=== PATIENT | female | born 1950 | race Caucasian/White ===

== ENCOUNTER 2016-05-09 13:38 | Emergency (ER) | payer MEDICARE, OTHER ==
[2016-05-09 13:57] VITALS: BP 134/73
[2016-05-09] MEDS ORDERED: NS 0.9% 1000 ML* 1,000 ML IV ONE (15:55)
[2016-05-09] MEDS ORDERED: ceFAZolin 1 GM in Dextrose (*) 1 GM/50 ML BAG IVPB ONE (15:56)
[2016-05-09] MEDS ORDERED: fentaNYL* 50 MCG/ML 2 ML VIAL (100 MCG VIAL) IV SLOW PU ONE (15:57)
[2016-05-09 18:16] LABS: Hematocrit 28 % (35-47); Hemoglobin 9.1 g/dl (12.0-16.0); Mean Corpuscular HGB Conc 32 g/dl (31-36); Mean Corpuscular Hemoglobin 25 pg (27-31); Mean Corpuscular Volume 77 fL (80-97); Mean Platelet Volume 8 um3 (7.4-10.4); Red Blood Count 3.67 10^6/ul (4.0-5.4); Red Cell Distribution Width 16 % (10.5-15); White Blood Count 5.9 10^3/ul (3.5-10.8)
[2016-05-09 18:31] LABS: Albumin 2.7 g/dL (3.2-5.2); BUN/Creatinine Ratio 26.5 (8-20); Calcium 8.4 mg/dL (8.6-10.3); EGFR Non-African American 126.7 (>60); Globulin 2.5 g/dL (2-4); Potassium 3.9 mmol/L (3.5-5.0); Total Bilirubin 0.5 mg/dL (0.2-1.0); Total Protein 5.2 g/dL (6.4-8.9)
[2016-05-09] MEDS ORDERED: Ondansetron INJ* 2 MG/ML VIAL ONE (20:14)
--- NOTE | 2016-05-09 22:28 | ED ---
Tenisha Walsh Rebecca, scribed for Jose Lassiter MD on 05/09/16 at 1529 . Throat Pain/Nasal Congestion - HPI Summary HPI Summary: Pt is a 65 y/o F BIBA who presents to ED c/o tongue swelling and pain. 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 Pain is currently severe, ranked 9/10 and characterized as burning. Pain is not particularly worse today than it has been. Sx aggravated by swallowing and drinking, alleviated slightly by Hydrocodone prescription. Reports that she cannot drink water and has a feeding tube in place. Additionally c/o pruritis and erythema of the neck. Denies fever and urinary frequency decrease. Reports discussing with her rad/Oncologist, Dr. Berry, who, per pt, stated that sx should resolve spontaneously. she states the redness is not much worse than it has been. 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) - Allergies/Home Medications Allergies/Adverse Reactions: Allergies Allergy/AdvReac Type Severity Reaction Status Date / Time Penicillins Allergy Intermediate Rash Verified 03/25/16 12:03 Lisinopril Allergy Rash Verified 03/25/16 12:03 PMH/Surg Hx/FS Hx/Imm Hx Endocrine/Hematology History: Denies: Hx Diabetes, Hx Systemic Lupus Erythematosus Cardiovascular History: Reports: Hx Hypertension - ON DAILY MEDS Denies: Hx Congestive Heart Failure, Hx Pacemaker/ICD Respiratory History: Reports: Other Respiratory Problems/Disorders - excess phlegm GI History: Reports: Other GI Disorders - feeding tube placed History: Denies: Hx Dialysis, Hx Renal Disease Musculoskeletal History: Reports: Hx Arthritis Denies: Hx Rheumatoid Arthritis Sensory History: Reports: Hx Cataracts, Hx Contacts or Glasses - GLASSES Denies: Hx Hearing Aid Opthamlomology History: Reports: Hx Cataracts, Hx Contacts or Glasses - GLASSES Psychiatric History: Denies: Hx Panic Disorder - Cancer History Cancer Type, Location and Year: mouth cancer Hx Chemotherapy: Yes - 02/16/16 Hx Radiation Therapy: Yes - 02/18/16 Hx Palliative Cancer Treatment: No - Surgical History Surgery Procedure, Year, and Place: 12/2015 CANCER OF FLOOR OF MOUTH [place] Hx Anesthesia Reactions: No Infectious Disease History: No Infectious Disease History: Denies: Traveled Outside the [place] in Last 30 Days - Family History Known Family History: Positive: Other - No FMHx of malignant hyperthermia. No FMHx of anesthesia reaction. - Social History Alcohol Use: None Substance Use Type: Reports: None Smoking Status (MU): Former Smoker Type: Cigars Amount Used/How Often: OCCASSIONAL CIGAR PAST 5 YRS Have You Smoked in the Last Year: Yes Review of Systems Negative: Fever Positive: Other - Tongue swelling and pain Negative: frequency Positive: Rash - Neck erythema and pruritis All Other Systems Reviewed And Are Negative: Yes Physical Exam - Summary Physical Exam Summary: General: Pleasant, alert. Obvious discomfort with swelling. HEENT: Facial and tongue swelling and erythema. The face and skin that is indurated is diffusely tender. Neck: soft, supple, no adenopathy, no edema Heart: S1, S2, RRR, no murmurs, rubs, or gallops. HR is 95 bpm. Lungs: Clear to auscultation, breathing comfortable, no wheezes or rales Abdominal: Soft, flat, nontender with an abdomen feeding tube. Extremities: Bilateral swelling of the legs with mild tenderness. Neuro: Alert and oriented x 3 Psych: Logical, coherent Triage Information Reviewed: Yes Vital Signs On Initial Exam: Initial Vitals Temp Pulse Resp BP Pulse Ox 98.5 F 94 17 134/73 98 05/09/16 13:50 05/09/16 13:50 05/09/16 13:50 05/09/16 13:50 05/09/16 13:50 Vital Signs Reviewed: Yes Diagnostics - Vital Signs Vital Signs Temp Pulse Resp BP Pulse Ox 05/09/16 13:57 98.5 F 94 19 134/73 97 05/09/16 13:50 98.5 F 94 17 134/73 98 - Laboratory Lab Results: Lab Results 05/09/16 05/09/16 05/09/16 Range/Units 18:08 18:08 18:08 WBC 5.9 (3.5-10.8) 10^3/ul RBC 3.67 L (4.0-5.4) 10^6/ul Hgb 9.1 L (12.0-16.0) g/dl Hct 28 L (35-47) % MCV 77 L (80-97) fL MCH 25 L (27-31) pg MCHC 32 (31-36) g/dl RDW 16 H (10.5-15) % Plt Count 200 (150-450) 10^3/ul MPV 8 (7.4-10.4) um3 Neut % (Auto) 78.4 (38-83) % Lymph % (Auto) 3.6 L (25-47) % [place] % (Auto) 11.9 H (1-9) % Eos % (Auto) 5.7 (0-6) % Baso % (Auto) 0.4 (0-2) % Absolute Neuts (auto) 4.7 (1.5-7.7) 10^3/ul Absolute Lymphs (auto) 0.2 L (1.0-4.8) 10^3/ul Absolute Monos (auto) 0.7 (0-0.8) 10^3/ul Absolute Eos (auto) 0.3 (0-0.6) 10^3/ul Absolute Basos (auto) 0 (0-0.2) 10^3/ul Absolute Nucleated RBC 0 10^3/ul Nucleated RBC % 0.1 INR (Anticoag Therapy) 0.96 (0.89-1.11) APTT 29.1 (26.0-36.3) seconds Sodium 131 L (133-145) mmol/L Potassium 3.9 (3.5-5.0) mmol/L Chloride 97 L (101-111) mmol/L Carbon Dioxide 29 (22-32) mmol/L Anion Gap 5 (2-11) mmol/L BUN 13 (6-24) mg/dL Creatinine 0.49 L (0.51-0.95) mg/dL Est GFR ( Amer) 163.0 (>60) Est GFR (Non-Af Amer) 126.7 (>60) BUN/Creatinine Ratio 26.5 H (8-20) Glucose 101 H (70-100) mg/dL Lactic Acid (0.5-2.0) mmol/L Calcium 8.4 L (8.6-10.3) mg/dL Total Bilirubin 0.50 (0.2-1.0) mg/dL AST 14 (13-39) U/L ALT 10 (7-52) U/L Alkaline Phosphatase 154 H (34-104) U/L Total Protein 5.2 L (6.4-8.9) g/dL Albumin 2.7 L (3.2-5.2) g/dL Globulin 2.5 (2-4) g/dL Albumin/Globulin Ratio 1.1 (1-3) 05/09/16 Range/Units 18:08 WBC (3.5-10.8) 10^3/ul RBC (4.0-5.4) 10^6/ul Hgb (12.0-16.0) g/dl Hct (35-47) % MCV (80-97) fL MCH (27-31) pg MCHC (31-36) g/dl RDW (10.5-15) % Plt Count (150-450) 10^3/ul MPV (7.4-10.4) um3 Neut % (Auto) (38-83) % Lymph % (Auto) (25-47) % [place] % (Auto) (1-9) % Eos % (Auto) (0-6) % Baso % (Auto) (0-2) % Absolute Neuts (auto) (1.5-7.7) 10^3/ul Absolute Lymphs (auto) (1.0-4.8) 10^3/ul Absolute Monos (auto) (0-0.8) 10^3/ul Absolute Eos (auto) (0-0.6) 10^3/ul Absolute Basos (auto) (0-0.2) 10^3/ul Absolute Nucleated RBC 10^3/ul Nucleated RBC % INR (Anticoag Therapy) (0.89-1.11) APTT (26.0-36.3) seconds Sodium (133-145) mmol/L Potassium (3.5-5.0) mmol/L Chloride (101-111) mmol/L Carbon Dioxide (22-32) mmol/L Anion Gap (2-11) mmol/L BUN (6-24) mg/dL Creatinine (0.51-0.95) mg/dL Est GFR ( Amer) (>60) Est GFR (Non-Af Amer) (>60) BUN/Creatinine Ratio (8-20) Glucose (70-100) mg/dL Lactic Acid 0.4 L (0.5-2.0) mmol/L Calcium (8.6-10.3) mg/dL Total Bilirubin (0.2-1.0) mg/dL AST (13-39) U/L ALT (7-52) U/L Alkaline Phosphatase (34-104) U/L Total Protein (6.4-8.9) g/dL Albumin (3.2-5.2) g/dL Globulin (2-4) g/dL Albumin/Globulin Ratio (1-3) Result Diagrams: 05/09/16 18:08 05/09/16 18:08 Lab Statement: Any lab studies that have been ordered have been reviewed, and results considered in the medical decision making process. Re-Evaluation - Re-Evaluation First Eval Re-Evaluation Time: 17:13 Change: Unchanged Comment: Discussed conversation with Dr. Berry and the possibility of infection. Discussed plan of admission with pt who agrees. Second Eval Re-Evaluation Time: 20:01 Change: Improved Comment: Discussed current findings and plan with patient. Counseled pt on fentanyl patch. Third Eval Re-Evaluation Time: 20:10 Change: Improved Comment: Reports that in the past, the use of a fentanyl patch caused nausea. Additionally notes that she is running out of pain meds at home. EENT Course/Dx - Course Assessment/Plan: Unfortunately, she has had continued oral pain and burning for several weeks now. Pt resolve states that redness and skin changes aren't necessarily new but that she is more concerned about the burning. At first she had tachycardia, which has resolved. She is afebrile, no elevated white count. I reviewed the case w/ Dr. Berry, there is potential that the redness has spread and we have concern about the possibility of cellulitis. I believe without any systemic symptoms or signs of infeciton, it is reaonsable to try oral Abx and have the pt follow up with Dr. Berry immediately for re- assessment. Upon further discussion, pt reveals that duragesic patch caused nausea. Pain will be treated with oral pain medications. This was described in detail. - Differential Diagnoses Differential Diagnoses: Cellulitis - Diagnoses Provider Diagnoses: Radiation burn, Cellulitis - Provider Notifications Discussed Care of Patient with: Dr. Berry with oncology, who states that the last time she was seen by him the whole area had been improving, less red and less swollen. Also states that the last radiation treatment was a while back. Dr. Maldonado, hospitalist, at 1939. She points out that the lack of a white count or tachycardia any longer suggetss that this may not be a severe infection. She recommends that we try oral Abx at first. Dr. Berry at 194 who I called again to inform and update on the case. Agrees to see the pt tomorrow morning. Discharge - Discharge Plan Condition: Fair Disposition: HOME Prescriptions: DOXYcycline CAP(*) [DOXYcycline 100MG CAP(*)] 100 mg PO BID #20 cap oxyCODONE TAB* [Roxycodone TAB 5 mg*] 5 mg PO Q4H PRN #20 tab MDD 6 PRN Reason: Pain Patient Education Materials: Cellulitis (ED) Referrals: Sarthak Ceron MD [Primary Care Provider] - Additional Instructions: Follow up Dr. Berry tomorrow in the morning as we discussed. The documentation as recorded by the Tenisha bermudez Rebecca accurately reflects the service I personally performed and the decisions made by me, Jose Lassiter MD.
--- NOTE | 2016-05-15 09:00 | ED ---
Progress - Progress Note Progress Note: Sens reviewed - organism is sens to doxycycline which pt has been taking. No changes in meds. Pt to f/u as directed. She is aware to return to ED if sx worsen. Re-Evaluation - Re-Evaluation First Eval Re-Evaluation Time: 17:13 Change: Unchanged Comment: Discussed conversation with Dr. Berry and the possibility of infection. Discussed plan of admission with pt who agrees. Second Eval Re-Evaluation Time: 20:01 Change: Improved Comment: Discussed current findings and plan with patient. Counseled pt on fentanyl patch. Third Eval Re-Evaluation Time: 20:10 Change: Improved Comment: Reports that in the past, the use of a fentanyl patch caused nausea. Additionally notes that she is running out of pain meds at home. Course/Dx - Diagnoses Provider Diagnoses: Radiation burn, Cellulitis - Provider Notifications Discussed Care Of Patient With: Dr. Berry with oncology, who states that the last time she was seen by him the whole area had been improving, less red and less swollen. Also states that the last radiation treatment was a while back. Dr. Maldonado, hospitalist, at 1939. She points out that the lack of a white count or tachycardia any longer suggetss that this may not be a severe infection. She recommends that we try oral Abx at first. Dr. Berry at 1946 who I called again to inform and update on the case. Agrees to see the pt tomorrow morning.
== END 2016-05-09 20:24 | disposition home or self-care (01) ==
LOC: ED 13:38
DX: T28.0 Burn of mouth and pharynx (principal); L03.90 Cellulitis, unspecified; R21 Rash and other nonspecific skin eruption; R60.9 Edema, unspecified; L29.9 Pruritus, unspecified; T79.9XXS Unspecified early complication of trauma, sequela; Z87.891 Personal history of nicotine dependence
CPT/HCPCS: 36415; 80053; 83605; 85025; 85610; 85730; 87040; 87077; 87150; 87186; 87205; 96374; 99283; J0690; J2405; J3010

== ENCOUNTER 2016-06-06 15:41 | Inpatient (IN) | payer MEDICARE, OTHER ==
[2016-06-06] MEDS ORDERED: NS 0.9% 1000 ML* 1,000 ML IV ONE (16:22)
--- NOTE | 2016-06-06 17:17 | RAD ---
INDICATION: History of head/neck carcinoma. Short of breath. COMPARISON: Chest x-ray May 26, 2015 TECHNIQUE: PA and lateral dual-energy views were obtained. FINDINGS: Bones/Soft Tissues: There are no acute bony findings. There is a left-sided Kemygt-t-Nbks catheter Cardiomediastinal: The heart is normal in size. There is an enlarging right hilar mass. There are other, bilateral, pulmonary parenchymal nodules. Lungs: There may be a coexistent right perihilar infiltrate. Pleura: There are no pleural effusions. Other: None IMPRESSION: RIGHT HILAR MASS WITH POSSIBLE POSTOBSTRUCTIVE PNEUMONITIS. ADDITIONAL PULMONARY PARENCHYMAL NODULES NOTED BILATERALLY
--- NOTE | 2016-06-06 17:22 | RAD ---
INDICATION: Abdominal pain COMPARISON: Abdomen January 28, 2016 TECHNIQUE: Erect and supine views of the abdomen are submitted. FINDINGS: Bones: There are no acute bony findings. Soft tissues: The soft tissues appear normal. The psoas margins are sharp. Bowel gas pattern: Normal Calcifications: There are no abnormal calcifications. Other: There is a PEG tube IMPRESSION: NO ACUTE DIAGNOSTIC FINDINGS.
[2016-06-06 17:40] LABS: Hematocrit 28 % (35-47); Mean Corpuscular HGB Conc 32 g/dl (31-36); Mean Corpuscular Hemoglobin 24 pg (27-31); Mean Corpuscular Volume 74 fL (80-97); Mean Platelet Volume 7 um3 (7.4-10.4); Red Blood Count 3.85 10^6/ul (4.0-5.4); Red Cell Distribution Width 16 % (10.5-15); White Blood Count 11.1 10^3/ul (3.5-10.8)
[2016-06-06 17:45] LABS: Add Diff/Slide Review? Slide Review Added; Comments Flag Yes
[2016-06-06 17:55] LABS: ALT 21 U/L (7-52); AST 23 U/L (13-39); Albumin 2.7 g/dL (3.2-5.2); Alkaline Phosphatase 278 U/L (34-104); Anion Gap 4 mmol/L (2-11); BUN/Creatinine Ratio 47.6 (8-20); Blood Urea Nitrogen 20 mg/dL (6-24); C Reactive Protein 123.49 mg/L (< 5.00); CO2 Carbon Dioxide 30 mmol/L (22-32); Calcium 8.7 mg/dL (8.6-10.3); Chloride 95 mmol/L (101-111); Creatine Kinase 11 U/L (10-223); EGFR African American 194.7 (>60); EGFR Non-African American 151.4 (>60); Globulin 2.8 g/dL (2-4); Glucose 104 mg/dL (70-100); Potassium 3.4 mmol/L (3.5-5.0); Sodium 129 mmol/L (133-145); Total Protein 5.5 g/dL (6.4-8.9)
[2016-06-06 17:56] LABS: Troponin I 0.01 ng/mL (<0.04)
[2016-06-06 17:59] LABS: Hypochromasia 2+; Macrocytosis 1+; Microcytosis 1+; Polychromasia 1+
[2016-06-06] MEDS ORDERED: Levofloxacin 750 MG IVPREMIX(* 750 MG/150 ML BAG IVPB ONE (18:56)
[2016-06-06] MEDS ORDERED: HYDROcodone/ACET. 7.5/325 LIQ* 15 ML UDC PO ONE (19:27)
[2016-06-06] MEDS ORDERED: Al Hydrox/Mg Hydrox/Simet LIQ* 30 ML UDC PO PRN (19:50)
[2016-06-06] MEDS ORDERED: Clindamycin 600 MG IVPREMIX(* 600 MG/50 ML SDV IV ONE (19:53)
[2016-06-06] MEDS ORDERED: Polyethylene Glycol 3350* 17 GM PACKET PO PRN (20:01)
[2016-06-06] MEDS ORDERED: Iohexol 300* (CONTRAST) 10 ML SDV IV ONE (20:10)
[2016-06-06 20:14] LABS: Total Iron Binding Capacity 157 mcg/dL (250-450); Transferrin 112 mg/dL (203-362)
[2016-06-06 20:17] LABS: Iron < 15 ug/dL (50-212)
[2016-06-06 20:34] LABS: Ferritin 326.8 ng/mL (11-307)
[2016-06-06] MEDS: Morphine INJ* 2 MG/ML 1 ML CARPUJECT IV PRN (20:39)
[2016-06-06] MEDS: Ondansetron INJ* 2 MG/ML VIAL IV PRN (20:39)
[2016-06-06] MEDS: Acetaminophen ADULT LIQ* 650 MG/20.3 ML UDC PO PRN (20:41)
[2016-06-06] MEDS ORDERED: Potassium Chloride LIQUID* 20 MEQ PACKET PO ONE (20:49)
--- NOTE | 2016-06-06 20:50 | ED ---
zoraida Walsh Timothy, scribed for Yoandy Doan MD on 06/06/16 at 1627 . HPI Febrile Illness - HPI Summary HPI Summary: Deb Lozano is a 65 yo female presenting to [facility] with fever, cough, sore throat, and dyspnea for the past 3 days. She also c/o nausea and vomiting. She has a peg tube which feels sore, and had some blood come out of it yesterday. A dry cough was noted at triage. She states coughing makes the tube site hurt. She also states she has not been drinking or eating effectively that much. She states she is dizzy when she gets up to walk around. She has mouth CA, but is no longer receiving Tx. Triage note states she seems to be struggling with her new Dx of mouth CA. When questioned about SI indicated at triage, Pt stated she was not actually with SI, but was just feeling terrible. She has self-medicated with norco at 1130 today. Her Mhx includes HTN, feeding tube, arthritis, mouth CA - History of Current Complaint Chief Complaint: EDShortnessOfBreath Hx Obtained From: Patient Onset/Duration: Started Days Ago, Still Present Timing: Constant Initial Severity: Moderate Current Severity: Moderate Aggravating Factors: Nothing Alleviating Factors: Nothing Associated Signs and Symptoms: Cough, Dizziness, SOB, Sore Throat, Vomiting - Additional Pertinent History Primary Care Physician: REGINALD - Allergy/Home Medications Allergies/Adverse Reactions: Allergies Allergy/AdvReac Type Severity Reaction Status Date / Time Penicillins Allergy Intermediate Rash Verified 03/25/16 12:03 Lisinopril Allergy Rash Verified 03/25/16 12:03 PMH/Surg Hx/FS Hx/Imm Hx Endocrine/Hematology History: Denies: Hx Diabetes, Hx Systemic Lupus Erythematosus Cardiovascular History: Reports: Hx Hypertension - ON DAILY MEDS Denies: Hx Congestive Heart Failure, Hx Pacemaker/ICD Respiratory History: Reports: Other Respiratory Problems/Disorders - excess phlegm GI History: Reports: Other GI Disorders - feeding tube placed History: Denies: Hx Dialysis, Hx Renal Disease Musculoskeletal History: Reports: Hx Arthritis Denies: Hx Rheumatoid Arthritis Sensory History: Reports: Hx Cataracts, Hx Contacts or Glasses - GLASSES Denies: Hx Hearing Aid Opthamlomology History: Reports: Hx Cataracts, Hx Contacts or Glasses - GLASSES Psychiatric History: Denies: Hx Panic Disorder - Cancer History Cancer Type, Location and Year: mouth cancer Hx Chemotherapy: Yes - 02/16/16 Hx Radiation Therapy: Yes - 02/18/16 Hx Palliative Cancer Treatment: No - Surgical History Surgery Procedure, Year, and Place: 12/2015 CANCER OF FLOOR OF MOUTH [place] Hx Anesthesia Reactions: No Infectious Disease History: No Infectious Disease History: Denies: Traveled Outside the [place] in Last 30 Days - Family History Known Family History: Negative: Other - malignant hyperthermia, anesthesia reaction - Social History Alcohol Use: None Substance Use Type: Reports: None Smoking Status (MU): Former Smoker Type: Cigars Amount Used/How Often: OCCASSIONAL CIGAR PAST 5 YRS Have You Smoked in the Last Year: Yes Review of Systems Positive: Fever Eyes: Negative Positive: Sore Throat Cardiovascular: Negative Positive: Shortness Of Breath, Cough Positive: Abdominal Pain - at peg tube site, Vomiting, Nausea Genitourinary: Negative Musculoskeletal: Negative Skin: Negative Neurological: Other - dizziness Psychological: Normal All Other Systems Reviewed And Are Negative: Yes Physical Exam - Summary Physical Exam Summary: VITAL SIGNS: Reviewed. GENERAL: Patient is a well developed and nourished female who is lying comfortable in the stretcher. Patient is not in any acute respiratory distress. HEAD AND FACE: No signs of trauma. No ecchymosis, hematomas or skull depressions. EYES: PERRLA, EOMI x 2, No injected conjunctiva, no nystagmus. EARS: Hearing grossly intact. Ear canals and tympanic membranes are within normal limits. MOUTH: Oropharynx within normal limits. NECK: Supple, trachea is midline, no adenopathy, no JVD, no carotid bruit, no c- spine tenderness, neck with full ROM. CHEST: Symmetric, no tenderness at palpation LUNGS: Coarce breath sounds bilateral. . CVS: Regular rate and rhythm, S1 and S2 present, no murmurs or gallops appreciated. ABDOMEN: Soft, non-tender. No signs of distention. No rebound no guarding, and no masses palpated. Bowel sounds are normal. Peg tub in place EXTREMITIES: FROM in all major joints, no edema, no cyanosis or clubbing. NEURO: Alert and oriented x 3. No acute neurological deficits. Speech is normal and follows commands. SKIN: Dry and warm Triage Information Reviewed: Yes Vital Signs On Initial Exam: Initial Vitals Temp Pulse Resp BP Pulse Ox 99.9 F 94 20 107/56 97 06/06/16 16:09 06/06/16 16:09 06/06/16 16:09 06/06/16 16:09 06/06/16 16:09 Vital Signs Reviewed: Yes Diagnostics - Vital Signs Vital Signs Temp Pulse Resp BP Pulse Ox 06/06/16 16:09 99.9 F 94 20 107/56 97 - Laboratory Result Diagrams: 06/06/16 17:25 06/06/16 17:25 Lab Statement: Any lab studies that have been ordered have been reviewed, and results considered in the medical decision making process. - Radiology CXR Xray Interpretation: Positive (See Comments) - IMPRESSION: RIGHT HILAR MASS WITH POSSIBLE POSTOBSTRUCTIVE PNEUMONITIS. ADDITIONAL PULMONARY PARENCHYMAL NODULES NOTED BILATERALLY Radiology Interpretation Completed By: Radiologist abd XR Xray Interpretation: No Acute Changes - IMPRESSION: NO ACUTE DIAGNOSTIC FINDINGS. Radiology Interpretation Completed By: Radiologist - EKG 1730 Cardiac Rate: NL - 94 BPM EKG Interpretation: NSR @ 94 BPM, no ST elevation, no [place] Course/Dx - Course Assessment/Plan: Deb Lozano is a 65 yo female presenting to [facility] with mouth cancer and a feeding tube, c/o nausea, vomiting, cough, dyspnea, and sore throat. Blood work shows WBC 11.1 and macrocytic hypochromic anemia, probably a chronic disease, hyponatremia 129, hypokalemia 3.4. Rapid influenza a and b tests are negative. His CXR showed right hilar mass with possible post- obstructive pneumonitis. In the ED course he was given IV fluids and leviquin, since Pt may have aspiration pneumonoia. I discussed my findings and results with Dr. Silva who accepted Pt for admission. Patient is hemodynamically stable alert and oriented x 3. - Febrile Illness Differential Diagnoses: GI Disease, Pneumonia - Diagnoses Provider Diagnoses: Aspiration pneumonia, Hypokalemia, Anemia, Lung mass - Provider Notifications Discussed Care Of Patient With: 1910 - Dr. Silva (hospitalist) - Discussed Pt condiiton, agrees to admit Pt Instructed by Provider To: Admit As Inpatient Discharge - Discharge Plan Condition: Stable Disposition: ADMITTED TO [facility] The documentation as recorded by the zoraida bermudez Timothy accurately reflects the service I personally performed and the decisions made by , Yoandy Doan MD.
--- NOTE | 2016-06-06 21:06 | RAD ---
INDICATION: Abnormal chest x-ray with lung/mediastinal masses COMPARISON: Chest x-ray same date; PET scan November 17, 2015 TECHNIQUE: Axial source images were obtained from the thoracic inlet to the hemidiaphragms. Coronal and sagittal reconstructed images were acquired. The visualized neck to include the thyroid appear normal. Chest wall: There are no acute abnormalities of the bony thorax or chest wall. There is a left-sided Niqytv-r-Vzna catheter terminating in the superior vena cava. There is extensive, confluent, distal adenopathy. Measured individually lymph node masses measure up to 3.8 x 2.4 cm in the pretracheal space. There is a necrotic 3.1 x 2.7 cm subcarinal lymph node and a 2.6 x 3.4 center right hilar mass. There are multiple additional smaller metastatic lymph nodes. LUNGS: There is necrotic appearing mass with presumed postobstructive pneumonitis in the right middle lobe. There is also likely postobstructive lingular pneumonitis. There are numerous, bilateral, pulmonary parenchymal masses. The larger masses show cavitation. The largest masses measure up to 1.8 cm in transverse dimensions. There are numerous smaller lung masses some of which are not cavitary. There are no endobronchial lesions Lungs : There are no pulmonary parenchymal masses or infiltrates. The pulmonary interstitium appears normal. There are no endobronchial lesions. Cardiomediastinal structures: The heart is normal in size. There is no pericardial effusion. There is no evidence of aortic aneurysm or dissection. The pulmonary vessels appear normal. There is no mediastinal or hilar adenopathy. The esophagus appears normal. Pleura : There are no pleural-based masses or effusions. Other: The spleen is mildly generous in size. There is hepatic steatosis.. There is a peg tube IMPRESSION: EXTENSIVE NECROTIC APPEARING MEDIASTINAL ADENOPATHY WITH POSTOBSTRUCTIVE PNEUMONITIS IN THE RIGHT MIDDLE LOBE AND LINGULA. NUMEROUS SOLID AND CAVITARY UPPER AND LOWER LOBE PULMONARY PARENCHYMAL LESIONS ARE NOTED BILATERALLY. THIS LIKELY REPRESENTS A CAVITATING MALIGNANCY IN THIS PATIENT WITH A HEAD/NECK CARCINOMA ALTHOUGH THE DIFFERENTIAL WOULD ALSO INCLUDE INFECTIOUS DISEASE PROCESSES TO INCLUDE SEPTIC PULMONARY EMBOLI.
[2016-06-06] MEDS: NS 0.9% 1000 ML* 1,000 ML IV SCH (23:18)
[2016-06-06] MEDS: Heparin VIAL(*) 5000 UNITS/ML VIAL (FIVE THOUSAND) SUBCUT SCH (23:19)
--- NOTE | 2016-06-07 00:26 | HP ---
HISTORY AND PHYSICAL: DATE OF ADMISSION: 06/06/16 TIME OF EVALUATION: 1999. ONCOLOGIST: Huma Gomez MD CHIEF COMPLAINT: Shortness of breath, nausea, and vomiting. HISTORY OF PRESENT ILLNESS: This is a 65-year-old female with a past medical history of squamous cell carcinoma of the tongue, status post tumor resection and chemoradiation diagnosed on December 26 with also a PEG tube placed on January 25, who states that she only had oral intake about 3 days ago, she felt constipated and she choked on a laxative. For the past 3 days, she has had worsening shortness of breath, nausea, and vomiting. She states she has had a persistent dry cough for the past month. She has felt very dizzy and shaking and unsteady on her feet. She has had a fever at home for the past few days as high as 101.8. She denies any abdominal pain. As mentioned, she has constipation. She states she has had some pain around her feeding tube site and some blood oozing around it. She also has some red irritation at the tape sites. Regarding her history of cancer, she states she has completed her treatment. She is unclear on her prognosis. She states that when she feels really bad, she feels like she wants to , but she would never do anything or act upon this. She denies any chest pain. No swelling in her legs. Otherwise , the remaining review of systems is negative. In the emergency room, the patient had labs and imaging. She was given a liter of normal saline, and was referred to the hospitalist service for further evaluation. PAST MEDICAL HISTORY: 1. As mentioned, squamous cell carcinoma of the tongue diagnosed in December 2015, status post resection and chemoradiation followed by Dr. Gomez and Dr. Berry. Status post PEG placement in January 2016. 2. History of a TIA. 3. Hypertension. MEDICATIONS: The patient is unclear of her medications, her will bring in the list later. She does know that she takes liquid hydrocodone and Tylenol every 4 hours as needed and blood pressure medications. ALLERGIES: PENICILLIN and LISINOPRIL. FAMILY HISTORY: No history of lung or oral cancer in the family. SOCIAL HISTORY: The patient lives at home with her , Celio, who is her healthcare proxy. She quit smoking cigars back in December 2015. She was smoking one cigar per day for the past 6 or 7 years. No alcohol use. CODE STATUS: She is a DNR/DNI. We will complete the MOLST form here. REVIEW OF SYSTEMS: As mentioned in the HPI. PHYSICAL EXAMINATION GENERAL: In no acute distress. VITAL SIGNS: T-max 102.7, pulse rate is 94, respiratory rate 18, oxygen saturation is 93% on room air, and blood pressure is 128/59. HEENT: Some adenopathy and fullness. The patient with limited ability to open her mouth to get a full visualized exam of her oropharynx. The patient's mucous membranes are clearly dry. Pupils are equal and reactive and anicteric. Head normocephalic. CARDIAC: Harsh murmur heard throughout all bases, most prominent at the right sternal base. Regular rate and rhythm. RESPIRATORY: Rhonchorous breath sounds with diminished breath sounds bilaterally. No expiratory wheezing, no crackles appreciated. ABDOMEN: Soft, nontender, and nondistended. PEG tube in place and dry blood around the site and some mild erythematous irritation at the areas that are taped. EXTREMITIES: No clubbing, cyanosis, or edema. +1 DP. NEUROLOGIC: Awake, alert, and oriented x3. No focal neurologic deficits. LABORATORY DATA: White count 11.1, hemoglobin 9.0, hematocrit 28, platelets 267. Sodium 129, potassium 3.4, chloride 95, bicarb 30, BUN 20, creatinine 0.42 , glucose 104. CRP is 123.49. Flu negative. RADIOGRAPHIC DATA: Chest x-ray shows a right hilar mass with possible postobstructive pneumonitis. Additional pulmonary parenchymal nodules noted bilaterally. Abdominal x-ray: No acute diagnostic findings. EKG shows normal sinus rhythm. ASSESSMENT: This is a 65-year-old female with a past medical history of squamous cell carcinoma of the tongue, status post radiation and chemotherapy, who presents to the emergency room with worsening shortness of breath after choking on a laxative 3 days ago with a chronic cough for the past month, found to have a new right hilar mass. 1. Shortness of breath. Assessment: The patient's history and physical is consistent with an aspiration pneumonitis/pneumonia complicated by this new right hilar mass. Plan: We will allow her to have clear sips. We will put in a speech therapy evaluation, start her on clindamycin with her ALLERGY TO PENICILLIN, and continue her on IV fluids. I did speak with Dr. Hatch who is going to take her on his service in the morning and follow up on her cultures. We will also order a CAT scan of the chest to further identify this right hilar mass. 2. Microcytic anemia. No significant change from prior studies. Her MCV is slightly lower. Plan: We will get iron studies and Hemoccult. CHRONIC MEDICAL PROBLEMS: 1. Hypertension. The patient's blood pressures are low normal at this time in the setting of her infectious etiology. We will get her med rec in the morning and resume her antihypertensives once indicated and obtain the rest of her med rec and resume as indicated. 2. Fluids, electrolytes, and nutrition. As mentioned n.p.o. with clear sips until speech swallow evaluation. On IV fluids. 3. DVT prophylaxis, score is high risk. Heparin subcu t.i.d. 4. Code status. DNR/DNI. We will have a MOLST form completed. PATIENT TIME: Greater than 60 minutes spent doing the history and physical, more than half the time spent in direct patient contact. CC: Huma Gomez MD * [id number]/[facility] #: [id number] DAO
[2016-06-07] MEDS: Ondansetron INJ* 2 MG/ML VIAL IV PRN ×2 (01:09→15:59)
[2016-06-07] MEDS: Clindamycin 600 MG IVPREMIX(* 600 MG/50 ML SDV IV SCH ×4 (03:40→22:42)
[2016-06-07] MEDS: Heparin VIAL(*) 5000 UNITS/ML VIAL (FIVE THOUSAND) SUBCUT SCH ×3 (06:03→21:53)
[2016-06-07 06:39] LABS: Hematocrit 28 % (35-47); Hemoglobin 8.9 g/dl (12.0-16.0); Mean Corpuscular HGB Conc 32 g/dl (31-36); Mean Corpuscular Hemoglobin 24 pg (27-31); Mean Platelet Volume 8 um3 (7.4-10.4); Red Blood Count 3.73 10^6/ul (4.0-5.4); Red Cell Distribution Width 16 % (10.5-15); White Blood Count 11.8 10^3/ul (3.5-10.8)
[2016-06-07 06:46] LABS: Comments Flag Yes; Mean Corpuscular Volume 74 fL (80-97)
[2016-06-07 06:56] LABS: BUN/Creatinine Ratio 51.4 (8-20); Calcium 8.4 mg/dL (8.6-10.3); EGFR African American 240.3 (>60); EGFR Non-African American 186.9 (>60); Potassium 3.7 mmol/L (3.5-5.0)
[2016-06-07] MEDS: NS 0.9% 1000 ML* 1,000 ML IV SCH (08:21)
[2016-06-07] MEDS: HYDROcodone/ACET. 7.5/325 LIQ* 15 ML UDC PO PRN ×2 (08:24)
[2016-06-07] MEDS: Aspirin EC Low Dose* 81 MG TAB.EC PO SCH (08:24)
--- NOTE | 2016-06-07 08:49 | PN ---
Subjective Date of Service: 06/07/16 Interval History: Cough somewhat better. She occ coughs with drinking water. She takes liquid feedings and pills by PEG tube. Some pain in mouth, requests hydrocodone/APAP. Objective Active Medications: Acetaminophen (Tylenol Adult Liq*) 650 mg PO Q4H PRN PRN Reason: FEVER Last Admin: 06/06/16 20:41 Dose: 650 mg Hydrocodone Bitart/Acetaminophen (Nortab 7.5/325 Liq*) 5 ml G TUBE Q4H PRN PRN Reason: PAIN Al Hydrox/Mg Hydrox/Simethicone (Maalox Plus*) 30 ml PO Q6H PRN PRN Reason: INDIGESTION Aspirin (Aspirin Ec Low Dose*) 81 mg PO DAILY [facility] Last Admin: 06/07/16 08:24 Dose: 81 mg Heparin Sodium (Porcine) (Heparin Vial(*)) 5,000 units SUBCUT Q8HR [facility] Last Admin: 06/07/16 06:03 Dose: 5,000 units Clindamycin HCl/Dextrose (Cleocin 600 Mg Ivpremix(*) Sdv) 600 mg in 50 mls @ 100 mls/hr IV Q6H [facility] Last Admin: 06/07/16 03:40 Dose: 100 mls/hr Levofloxacin/Dextrose (Levaquin 750 Mg Ivpremix(*)) 750 mg in 150 mls @ 100 mls /hr IVPB Q24H [facility] Morphine Sulfate (Morphine Inj (Syringe)*) 2 mg IV Q4H PRN PRN Reason: PAIN Last Admin: 06/06/16 20:39 Dose: 2 mg Ondansetron HCl (Zofran Inj*) 4 mg IV Q4H PRN PRN Reason: NAUSEA/VOMITING Last Admin: 06/07/16 01:09 Dose: 4 mg Polyethylene Glycol/Electrolytes (Miralax*) 17 gm PO DAILY PRN PRN Reason: CONSTIPATION Vital Signs 06/06/16 06/06/16 06/06/16 20:00 20:39 21:02 Temperature Pulse Rate 104 117 Respiratory 20 Rate Blood Pressure 143/70 (mmHg) O2 Sat by Pulse 92 92 Oximetry 06/06/16 06/06/16 06/06/16 21:14 21:27 21:30 Temperature 101 F Pulse Rate 115 113 Respiratory Rate Blood Pressure 141/65 139/61 (mmHg) O2 Sat by Pulse 91 91 Oximetry 06/06/16 06/06/16 06/06/16 21:39 22:00 22:26 Temperature 98.1 F Pulse Rate 107 106 Respiratory 18 20 Rate Blood Pressure 127/55 125/58 (mmHg) O2 Sat by Pulse 92 97 Oximetry 06/06/16 06/07/16 06/07/16 22:39 00:00 00:18 Temperature 98.1 F Pulse Rate 106 Respiratory 17 18 20 Rate Blood Pressure 125/58 (mmHg) O2 Sat by Pulse 97 Oximetry 06/07/16 06/07/16 06/07/16 02:00 03:44 08:24 Temperature 97.1 F Pulse Rate 102 Respiratory 17 18 26 Rate Blood Pressure 159/76 (mmHg) O2 Sat by Pulse 97 Oximetry Oxygen Devices in Use Now: None Appearance: Alert, sitting up in bed. In good spirits. Looks comfortable. Eyes: No Scleral Icterus Neck: NL Appearance and Movements; NL JVP, No Thyroid Enlargement, Masses Respiratory: Symmetrical Chest Expansion and Respiratory Effort, Clear to Auscultation, Clear to Percussion Cardiovascular: RRR Extremities: No Edema, No Clubbing, Cyanosis, - Skin: No Rash or Ulcers, No Nodules or Sclerosis, - Neurological: Alert and Oriented x 3, NL Sensation Result Diagrams: 06/07/16 06:26 06/07/16 06:26 Microbiology and Other Data: Microbiology 06/06/16 23:20 Nasal Screen MRSA (PCR)(KIMBERLY) - Final Nasal Mrsa Positive Assess/Plan/Problems-Billing Assessment: - Patient Problems (1) Pneumonia Current Visit: Yes Status: Acute Code(s): J18.9 - PNEUMONIA, UNSPECIFIED ORGANISM SNOMED Code(s): 947768910 Comment: Fever and leukocytosis, increased R hilar infiltrate. This could be postobstuctive pneumonia or enlargind lympadenopathy. Continue levofloxacin , clindamycin. (2) Squamous cell cancer of tongue Current Visit: Yes Status: Acute Code(s): C02.9 - MALIGNANT NEOPLASM OF TONGUE, UNSPECIFIED SNOMED Code(s): 550286003 Comment: S/P chemo/RT. Fup Dr. Berry [place] medical oncologist. Swallow eval done by ST, recommend video swallow study, will be done 12:30 3/ 9.. Resume TF. NPO except sips of water, all meds by PEG tube.
[2016-06-07] MEDS: HYDROcodone/ACET. 7.5/325 LIQ* 15 ML UDC G TUBE PRN ×2 (15:41→21:52)
[2016-06-07] MEDS ORDERED: PROCHLORPERAZINE INJ 5 MG/ML 2 ML VIAL IV PRN (18:50)
[2016-06-07] MEDS ORDERED: PROCHLORPERAZINE INJ 5 MG/ML 2 ML VIAL ONE (18:53)
[2016-06-07] MEDS: Levofloxacin 750 MG IVPREMIX(* 750 MG/150 ML BAG IVPB SCH (21:07)
[2016-06-08] MEDS: HYDROcodone/ACET. 7.5/325 LIQ* 15 ML UDC G TUBE PRN ×5 (02:39→22:05)
[2016-06-08] MEDS: Clindamycin 600 MG IVPREMIX(* 600 MG/50 ML SDV IV SCH ×4 (03:50→23:13)
[2016-06-08] MEDS: Heparin VIAL(*) 5000 UNITS/ML VIAL (FIVE THOUSAND) SUBCUT SCH ×3 (05:39→22:05)
[2016-06-08] MEDS: Aspirin EC Low Dose* 81 MG TAB.EC PO SCH (09:40)
--- NOTE | 2016-06-08 15:37 | RAD ---
INDICATION: Dysphagia. COMPARISON: There are no prior studies available for comparison. Technique: A swallowing function test was performed in conjunction with the speech pathologist. The patient was fluoroscopically lateral projection while swallowing thin and thick liquids. Approximately 0.9 minutes of intermittent fluoroscopic guidance were used during the exam. Findings: The patient initiated swallowing without difficulty. There was no significant hold up of barium. The patient had mild laryngeal penetration while swallowing thin liquids without merlin aspiration. IMPRESSION: MILD OROPHARYNGEAL DYSPHAGIA CPT II Codes: 6045F
--- NOTE | 2016-06-08 15:47 | PN ---
Subjective Date of Service: 06/08/16 Interval History: Cough improving. Walks in choi some. No new c/o. Objective Active Medications: Acetaminophen (Tylenol Adult Liq*) 650 mg PO Q4H PRN PRN Reason: FEVER Last Admin: 06/06/16 20:41 Dose: 650 mg Hydrocodone Bitart/Acetaminophen (Nortab 7.5/325 Liq*) 5 ml G TUBE Q4H PRN PRN Reason: PAIN Last Admin: 06/08/16 13:38 Dose: 5 ml Al Hydrox/Mg Hydrox/Simethicone (Maalox Plus*) 30 ml PO Q6H PRN PRN Reason: INDIGESTION Aspirin (Aspirin Ec Low Dose*) 81 mg PO DAILY [facility] Last Admin: 06/08/16 09:40 Dose: 81 mg Heparin Sodium (Porcine) (Heparin Vial(*)) 5,000 units SUBCUT Q8HR [facility] Last Admin: 06/08/16 13:41 Dose: 5,000 units Clindamycin HCl/Dextrose (Cleocin 600 Mg Ivpremix(*) Sdv) 600 mg in 50 mls @ 100 mls/hr IV Q6H [facility] Last Admin: 06/08/16 09:39 Dose: 100 mls/hr Levofloxacin/Dextrose (Levaquin 750 Mg Ivpremix(*)) 750 mg in 150 mls @ 100 mls /hr IVPB Q24H [facility] Last Admin: 06/07/16 21:07 Dose: 100 mls/hr Morphine Sulfate (Morphine Inj (Syringe)*) 2 mg IV Q4H PRN PRN Reason: PAIN Last Admin: 06/06/16 20:39 Dose: 2 mg Ondansetron HCl (Zofran Inj*) 4 mg IV Q4H PRN PRN Reason: NAUSEA/VOMITING Last Admin: 06/07/16 15:59 Dose: 4 mg Polyethylene Glycol/Electrolytes (Miralax*) 17 gm PO DAILY PRN PRN Reason: CONSTIPATION Prochlorperazine Edisylate (Compazine Inj*) 5 mg IV Q6H PRN PRN Reason: NAUSEA/VOMITING Last Admin: 06/07/16 18:55 Dose: 5 mg Vital Signs 06/07/16 06/07/16 06/07/16 17:41 20:00 21:52 Temperature Pulse Rate Respiratory 18 20 20 Rate Blood Pressure (mmHg) O2 Sat by Pulse Oximetry 06/07/16 06/07/16 06/08/16 23:35 23:52 02:39 Temperature Pulse Rate 105 Respiratory 20 20 20 Rate Blood Pressure 156/78 (mmHg) O2 Sat by Pulse 96 Oximetry 06/08/16 06/08/16 06/08/16 03:32 04:39 07:31 Temperature 98.0 F 98.6 F Pulse Rate 96 96 Respiratory 16 18 18 Rate Blood Pressure 149/73 151/77 (mmHg) O2 Sat by Pulse 96 96 Oximetry 06/08/16 06/08/16 06/08/16 09:40 11:34 11:40 Temperature 99.4 F Pulse Rate 100 Respiratory 30 30 20 Rate Blood Pressure 138/62 (mmHg) O2 Sat by Pulse 93 Oximetry 06/08/16 13:38 Temperature Pulse Rate Respiratory 20 Rate Blood Pressure (mmHg) O2 Sat by Pulse Oximetry Oxygen Devices in Use Now: None Appearance: Alert, partly up in bed. Upset about hearing about her 's difficulties, but when distracted seems comfortable. Eyes: No Scleral Icterus Ears/Nose/Mouth/Throat: Mucous Membranes Moist - surgical change in mouth, - Neck: NL Appearance and Movements; NL JVP, No Thyroid Enlargement, Masses Respiratory: Symmetrical Chest Expansion and Respiratory Effort, Clear to Auscultation, Clear to Percussion Cardiovascular: NL Sounds; No Murmurs; No JVD, RRR, No Edema, - Extremities: No Edema, No Clubbing, Cyanosis, - Skin: No Rash or Ulcers, No Nodules or Sclerosis, - Neurological: Alert and Oriented x 3, NL Sensation Result Diagrams: 06/07/16 06:26 06/07/16 06:26 Microbiology and Other Data: Microbiology 06/06/16 23:20 Nasal Screen MRSA (PCR)(KIMBERLY) - Final Nasal Mrsa Positive Assess/Plan/Problems-Billing Assessment: - Patient Problems (1) Pneumonia Current Visit: Yes Status: Acute Code(s): J18.9 - PNEUMONIA, UNSPECIFIED ORGANISM SNOMED Code(s): 918015159 Comment: Clinically responding well to antibiotics. Continue levofloxacin, clindamycin. (2) Squamous cell cancer of tongue Current Visit: Yes Status: Acute Code(s): C02.9 - MALIGNANT NEOPLASM OF TONGUE, UNSPECIFIED SNOMED Code(s): 483586212 Comment: S/P chemo/RT. Fup Dr. Berry, [place] medical oncologist. Video swallow study shows she tolerates thin liquids and pureed food. She can have both TF and an oral diet with pureed food.
[2016-06-08] MEDS: Levofloxacin 750 MG IVPREMIX(* 750 MG/150 ML BAG IVPB SCH (21:11)
[2016-06-09] MEDS: HYDROcodone/ACET. 7.5/325 LIQ* 15 ML UDC G TUBE PRN ×4 (02:06→21:44)
[2016-06-09] MEDS: Clindamycin 600 MG IVPREMIX(* 600 MG/50 ML SDV IV SCH ×2 (04:00→10:44)
[2016-06-09] MEDS: Heparin VIAL(*) 5000 UNITS/ML VIAL (FIVE THOUSAND) SUBCUT SCH ×3 (06:13→21:46)
[2016-06-09] MEDS: Aspirin EC Low Dose* 81 MG TAB.EC PO SCH (10:44)
[2016-06-09] MEDS: Morphine INJ* 2 MG/ML 1 ML CARPUJECT IV PRN (10:45)
--- NOTE | 2016-06-09 11:10 | PN ---
Subjective Date of Service: 06/09/16 Interval History: Feels better. Annoying dry cough, keeps her up at night. Not SOB. No other c/ o. Objective Active Medications: Acetaminophen (Tylenol Adult Liq*) 650 mg PO Q4H PRN PRN Reason: FEVER Last Admin: 06/06/16 20:41 Dose: 650 mg Hydrocodone Bitart/Acetaminophen (Nortab 7.5/325 Liq*) 5 ml G TUBE Q4H PRN PRN Reason: PAIN Last Admin: 06/09/16 06:38 Dose: 5 ml Al Hydrox/Mg Hydrox/Simethicone (Maalox Plus*) 30 ml PO Q6H PRN PRN Reason: INDIGESTION Aspirin (Aspirin Ec Low Dose*) 81 mg PO DAILY [facility] Last Admin: 06/09/16 10:44 Dose: 81 mg Benzonatate (Tessalon Cap*) 200 mg PO TID [facility] Heparin Sodium (Porcine) (Heparin Vial(*)) 5,000 units SUBCUT Q8HR [facility] Last Admin: 06/09/16 06:13 Dose: 5,000 units Clindamycin HCl/Dextrose (Cleocin 600 Mg Ivpremix(*) Sdv) 600 mg in 50 mls @ 100 mls/hr IV Q6H [facility] Last Admin: 06/09/16 10:44 Dose: 100 mls/hr Levofloxacin/Dextrose (Levaquin 750 Mg Ivpremix(*)) 750 mg in 150 mls @ 100 mls /hr IVPB Q24H [facility] Last Admin: 06/08/16 21:11 Dose: 100 mls/hr Morphine Sulfate (Morphine Inj (Syringe)*) 2 mg IV Q4H PRN PRN Reason: PAIN Last Admin: 06/09/16 10:45 Dose: 2 mg Ondansetron HCl (Zofran Inj*) 4 mg IV Q4H PRN PRN Reason: NAUSEA/VOMITING Last Admin: 06/07/16 15:59 Dose: 4 mg Polyethylene Glycol/Electrolytes (Miralax*) 17 gm PO DAILY PRN PRN Reason: CONSTIPATION Prochlorperazine Edisylate (Compazine Inj*) 5 mg IV Q6H PRN PRN Reason: NAUSEA/VOMITING Last Admin: 06/07/16 18:55 Dose: 5 mg Vital Signs 06/08/16 06/08/16 06/08/16 11:34 11:40 13:38 Temperature 99.4 F Pulse Rate 100 Respiratory 30 20 20 Rate Blood Pressure 138/62 (mmHg) O2 Sat by Pulse 93 Oximetry 06/08/16 06/08/16 06/08/16 14:00 15:38 15:45 Temperature 98.8 F 98.6 F Pulse Rate 103 110 Respiratory 24 18 24 Rate Blood Pressure 150/72 155/67 (mmHg) O2 Sat by Pulse 97 96 Oximetry 06/08/16 06/08/16 06/08/16 18:48 20:00 20:13 Temperature 98.5 F Pulse Rate 108 Respiratory 20 20 16 Rate Blood Pressure 154/72 (mmHg) O2 Sat by Pulse 94 Oximetry 06/08/16 06/08/16 06/08/16 20:48 22:05 23:17 Temperature 98.4 F Pulse Rate 98 Respiratory 18 18 16 Rate Blood Pressure 143/77 (mmHg) O2 Sat by Pulse 95 Oximetry 06/09/16 06/09/16 06/09/16 00:05 02:06 04:00 Temperature Pulse Rate Respiratory 20 20 18 Rate Blood Pressure (mmHg) O2 Sat by Pulse Oximetry 06/09/16 06/09/16 06/09/16 06:38 07:33 08:38 Temperature 98.1 F Pulse Rate 93 Respiratory 20 16 16 Rate Blood Pressure 151/73 (mmHg) O2 Sat by Pulse 96 Oximetry 06/09/16 10:45 Temperature Pulse Rate Respiratory 18 Rate Blood Pressure (mmHg) O2 Sat by Pulse Oximetry Oxygen Devices in Use Now: None Appearance: Alert, sitting up in bed. In fair spirits. Looks comfortable. No cough during my visit. Eyes: No Scleral Icterus Ears/Nose/Mouth/Throat: Clear Oropharnyx, Mucous Membranes Moist Neck: NL Appearance and Movements; NL JVP, No Thyroid Enlargement, Masses Respiratory: Symmetrical Chest Expansion and Respiratory Effort, Clear to Auscultation, Clear to Percussion Cardiovascular: NL Sounds; No Murmurs; No JVD, RRR, No Edema, - Extremities: No Edema, No Clubbing, Cyanosis, - Skin: No Rash or Ulcers, No Nodules or Sclerosis, - Neurological: Alert and Oriented x 3, NL Sensation Result Diagrams: 06/07/16 06:26 06/07/16 06:26 Microbiology and Other Data: Microbiology 06/06/16 23:20 Nasal Screen MRSA (PCR)(KIMBERLY) - Final Nasal Mrsa Positive Assess/Plan/Problems-Billing Assessment: - Patient Problems (1) Pneumonia Current Visit: Yes Status: Acute Code(s): J18.9 - PNEUMONIA, UNSPECIFIED ORGANISM SNOMED Code(s): 794102785 Comment: Clinically responding well to antibiotics. Continue levofloxacin, change clindamycin tp po 06/09. (2) Squamous cell cancer of tongue Current Visit: Yes Status: Acute Code(s): C02.9 - MALIGNANT NEOPLASM OF TONGUE, UNSPECIFIED SNOMED Code(s): 485381327 Comment: S/P chemo/RT. Fup Dr. Berry, [place] medical oncologist. Video swallow study shows she tolerates thin liquids and pureed food. She can have both TF and an oral diet with pureed food.
[2016-06-09] MEDS ORDERED: Benzonatate CAP* 100 MG PO ONE (11:35)
[2016-06-09] MEDS: Benzonatate CAP* 100 MG PO SCH ×2 (11:59→21:43)
[2016-06-09] MEDS: Clindamycin CAP* 150 MG PO SCH ×2 (13:49→21:43)
[2016-06-09] MEDS: Acetaminophen ADULT LIQ* 650 MG/20.3 ML UDC PO PRN (17:19)
[2016-06-09] MEDS: Levofloxacin 750 MG IVPREMIX(* 750 MG/150 ML BAG IVPB SCH (21:44)
[2016-06-10] MEDS: HYDROcodone/ACET. 7.5/325 LIQ* 15 ML UDC G TUBE PRN ×3 (05:24→21:56)
[2016-06-10] MEDS: Heparin VIAL(*) 5000 UNITS/ML VIAL (FIVE THOUSAND) SUBCUT SCH ×3 (05:24→21:56)
[2016-06-10] MEDS: Benzonatate CAP* 100 MG PO SCH ×3 (08:33→19:46)
[2016-06-10] MEDS: Clindamycin CAP* 150 MG PO SCH ×3 (08:35→19:46)
[2016-06-10] MEDS: Aspirin EC Low Dose* 81 MG TAB.EC PO SCH (08:35)
[2016-06-10] MEDS: Morphine INJ* 2 MG/ML 1 ML CARPUJECT IV PRN (17:32)
--- NOTE | 2016-06-10 17:56 | PN ---
Subjective Date of Service: 06/10/16 Interval History: Patient does feel better but biggest complaint is her coughing when she tries to swallow. Objective Active Medications: Acetaminophen (Tylenol Adult Liq*) 650 mg PO Q4H PRN PRN Reason: FEVER Last Admin: 06/09/16 17:19 Dose: 650 mg Hydrocodone Bitart/Acetaminophen (Nortab 7.5/325 Liq*) 5 ml G TUBE Q4H PRN PRN Reason: PAIN Last Admin: 06/10/16 17:35 Dose: 5 ml Al Hydrox/Mg Hydrox/Simethicone (Maalox Plus*) 30 ml PO Q6H PRN PRN Reason: INDIGESTION Aspirin (Aspirin Ec Low Dose*) 81 mg PO DAILY [facility] Last Admin: 06/10/16 08:35 Dose: 81 mg Benzonatate (Tessalon Cap*) 200 mg PO TID [facility] Last Admin: 06/10/16 14:35 Dose: 200 mg Clindamycin HCl (Cleocin Cap*) 300 mg PO TID [facility] Last Admin: 06/10/16 14:35 Dose: 300 mg Heparin Sodium (Porcine) (Heparin Vial(*)) 5,000 units SUBCUT Q8HR [facility] Last Admin: 06/10/16 14:35 Dose: 5,000 units Levofloxacin (Levaquin Tab*) 750 mg PO 2100 [facility] Morphine Sulfate (Morphine Inj (Syringe)*) 2 mg IV Q4H PRN PRN Reason: PAIN Last Admin: 06/09/16 10:45 Dose: 2 mg Ondansetron HCl (Zofran Inj*) 4 mg IV Q4H PRN PRN Reason: NAUSEA/VOMITING Last Admin: 06/07/16 15:59 Dose: 4 mg Polyethylene Glycol/Electrolytes (Miralax*) 17 gm PO DAILY PRN PRN Reason: CONSTIPATION Prochlorperazine Edisylate (Compazine Inj*) 5 mg IV Q6H PRN PRN Reason: NAUSEA/VOMITING Last Admin: 06/07/16 18:55 Dose: 5 mg Vital Signs 06/09/16 06/09/16 06/09/16 21:44 22:20 23:35 Temperature 99.2 F Pulse Rate 94 Respiratory 20 20 16 Rate Blood Pressure 140/66 (mmHg) O2 Sat by Pulse 93 Oximetry 06/09/16 06/10/1617 23:44 05:24 08:00 Temperature Pulse Rate Respiratory 18 20 18 Rate Blood Pressure (mmHg) O2 Sat by Pulse Oximetry 06/10/16 06/10/16 06/10/16 08:26 17:01 17:35 Temperature 98.1 F 99.1 F Pulse Rate 92 121 Respiratory 18 30 18 Rate Blood Pressure 134/66 158/76 (mmHg) O2 Sat by Pulse 95 95 Oximetry Oxygen Devices in Use Now: None Appearance: WD/WN woman lying in bed in NAD Eyes: No Scleral Icterus Ears/Nose/Mouth/Throat: Mucous Membranes Moist Neck: No Thyroid Enlargement, Masses Respiratory: Clear to Auscultation Cardiovascular: - - S1S2 sania Abdominal: NL Sounds; No Tenderness; No Distention, No Hepatosplenomegaly Lymphatic: No Cervical Adenopathy Extremities: No Clubbing, Cyanosis Skin: No Rash or Ulcers Neurological: Alert and Oriented x 3 Result Diagrams: 06/07/16 06:26 06/07/16 06:26 Microbiology and Other Data: Microbiology 06/06/16 23:20 Nasal Screen MRSA (PCR)(KIMBERLY) - Final Nasal Mrsa Positive Assess/Plan/Problems-Billing Assessment: Patient is a 65 year old who presented to [facility] with sob and found to have likely Pneumonia. - Patient Problems (1) Pneumonia Current Visit: Yes Status: Acute Code(s): J18.9 - PNEUMONIA, UNSPECIFIED ORGANISM SNOMED Code(s): 938876389 Comment: Improving. Change to po levofloxacin today and continue clindamycin. (2) Squamous cell cancer of tongue Current Visit: Yes Status: Acute Code(s): C02.9 - MALIGNANT NEOPLASM OF TONGUE, UNSPECIFIED SNOMED Code(s): 311005021 Comment: S/P chemo/RT. Fup Dr. Berry [place] medical oncologist. Video swallow study shows she tolerates thin liquids and pureed food. Her cough is bothering her a lot but is continuing therapy. (3) DVT prophylaxis Current Visit: No Status: Acute Code(s): FXL5763 - SNOMED Code(s): 762942056 Comment: Heparin sub q (4) Full code status Current Visit: No Status: Acute Code(s): Z78.9 - OTHER SPECIFIED HEALTH STATUS SNOMED Code(s): 963709740
[2016-06-10] MEDS: Labetalol TAB* 300 MG PO SCH (19:47)
[2016-06-10] MEDS ORDERED: Levofloxacin TAB* 750 MG PO SCH (21:00)
[2016-06-11] MEDS: Heparin VIAL(*) 5000 UNITS/ML VIAL (FIVE THOUSAND) SUBCUT SCH (05:31)
[2016-06-11] MEDS: HYDROcodone/ACET. 7.5/325 LIQ* 15 ML UDC G TUBE PRN ×2 (05:31→08:53)
[2016-06-11] MEDS: Labetalol TAB* 300 MG PO SCH (08:54)
[2016-06-11] MEDS: Clindamycin CAP* 150 MG PO SCH (08:55)
[2016-06-11] MEDS: Benzonatate CAP* 100 MG PO SCH (08:55)
[2016-06-11] MEDS: Aspirin EC Low Dose* 81 MG TAB.EC PO SCH (08:55)
[2016-06-11 09:37] VITALS: BP 140/62
--- NOTE | 2016-06-11 18:23 | PN ---
Progress Note - Progress Note Note: After reviewing the chart on discharge I was very concerned about the findings on this patient's CT scan findings. I called and spoke with the who I made aware of the findings and that this could be mets from her cancer. I explained it was critical for him to call Dr. Bran at [phone] first thing tomorrow morning to make an appt as I believe she needs to have a bronchoscopy as soon as possible. He said he understood the importance of this and will call first thing tomorrow morning.
--- NOTE | 2016-06-12 00:09 | DS ---
DISCHARGE SUMMARY: DATE OF ADMISSION: 06/06/16 DATE OF DISCHARGE: 06/11/16 ADMISSION DIAGNOSES: 1. Pneumonia. 2. Hypertension. 3. Squamous cell carcinoma of the tongue. DISCHARGE DIAGNOSES: 1. Pneumonia. 2. Hypertension. 3. Squamous cell carcinoma of the tongue. HOSPITAL COURSE: The patient is a 65-year-old woman who has significant history of squamous cell carcinoma of the tongue with a chronic cough because of difficulty swallowing since tumor resection and chemoradiation and presents to [facility] with a chief complaint of shortness of breath. The thought was the patient likely had aspiration pneumonia. Please see H and P for further details. The patient was placed on intravenous Levaquin. She improved dramatically over the next several days. The patient still had a cough , which is a chronic problem and she understands it will take time to get better. The patient was stable and anxious to go home on the date of discharge. PHYSICAL EXAMINATION: On the date of discharge, temperature 98.1 degrees, heart rate 95 beats per minute, respiratory rate 22 breaths per minute, pulse ox 93% on room air, blood pressure 140/62. HEENT: Normocephalic, atraumatic. Pupils equal, round, and reactive to light. Moist mucous membranes. Neck: Supple. No JVD, bruits, palpable thyroid, or lymphadenopathy. Chest is clear to auscultation and percussion bilaterally. Cardiovascular Exam: S1 and S2 appreciated. Abdominal Exam: Positive bowel sounds in all 4 quadrants. Soft, nontender, nondistended. Extremities: No cyanosis, clubbing, or edema. +2 peripheral pulses bilaterally. Neuro: Alert and oriented x3. Moves all extremities. Skin: No rashes or abnormalities. STUDIES DONE WHILE IN THE HOSPITAL: Chest x-ray, 06/06/16, impression: Right hilar mass with possible postobstructive pneumonitis, additional pulmonary parenchymal nodules noted bilaterally. Abdominal x-ray, 06/06/16: No acute diagnostic findings. Chest CT, 06/06/16, impression: Extensive necrotic-appearing mediastinal adenopathy, postobstructive pneumonitis, right middle lobe and lingula, numerous solid and cavitary upper and lower lobe and pulmonary parenchymal lesions are noted bilaterally, if this actually represents a cavitary malignancy in this patient with head and neck carcinoma where the differential will include infectious disease process to include septic pulmonary emboli. Fluoroscopy swallow evaluation, mild oropharyngeal dysphagia. DISCHARGE MEDICATIONS: 1. Roxicodone 5 mg every 4 hours as needed for pain. 2. Labetalol 300 mg twice daily. 3. Hydralazine 50 mg twice daily. 4. Amlodipine 10 mg daily. 5. Meclizine 12.5 mg 3 times a day as needed. 6. Magnesium citrate 30 cc as directed. 7. Ibuprofen 400 mg daily as needed. 8. Levaquin 750 mg daily for the next 4 days. 9. Clindamycin 800 mg 3 times a day for the next 4 days. 10. Tessalon Perles 200 mg 3 times a day as needed. 11. Aspirin 81 mg daily. DISCHARGE PLAN: The patient is discharged to home. She needs to confirm her medications with her PCP on followup. She will also follow with Oncology as well. Of course concerning is this finding on her chest x-ray and CAT scan of the cavitary lesions. She will also likely need to see Pulmonary as well. The patient, however, looked and felt well and is anxious to go home and this could be done as an outpatient. TIME SPENT: Over 45 minutes was spent on this discharge; more than 25 minutes was spent in direct [id number] contact with the patient in evaluation, physical examination, and counseling and coordination of care. CC: Dr. Sarthak Ceron * [id number]/[facility] #: [id number] DAO
== END 2016-06-11 17:16 | disposition home or self-care (01) | DRG 179 ==
LOC: ED 15:41 → MED 19:50
PROVIDERS: ADMIT Pediatrics; ATTEND Internal Medicine
DX: J69.0 Pneumonitis due to inhalation of food and vomit (principal); C02.9 Malignant neoplasm of tongue, unspecified; R13.12 Dysphagia, oropharyngeal phase; I10 Essential (primary) hypertension; F17.210 Nicotine dependence, cigarettes, uncomplicated; D50.9 Iron deficiency anemia, unspecified; J98.4 Other disorders of lung; R91.8 Other nonspecific abnormal finding of lung field; M19.90 Unspecified osteoarthritis, unspecified site; H26.9 Unspecified cataract; Z66 Do not resuscitate; Z93.1 Gastrostomy status; Z88.0 Allergy status to penicillin; Z88.8 Allergy status to other drugs, medicaments and biological substances; Z86.73 Personal history of transient ischemic attack (TIA), and cerebral infarction without residual deficits; Z79.82 Long term (current) use of aspirin
CPT/HCPCS: 36415; 71020; 71260; 74020; 74230; 80048; 80053; 82272; 82550; 82728; 83540; 83550; 83605; 83880; 84484; 85025; 86140; 87040; 87502; 87641; 93005; 99212; A9270-GY; G0463; J0780; J1644; J2270; J2405; Q9967

== ENCOUNTER 2016-06-13 12:19 | Inpatient (IN) | payer MEDICARE, OTHER ==
[2016-06-13 12:49] LABS: Hematocrit 28 % (35-47); Hemoglobin 8.8 g/dl (12.0-16.0); Mean Corpuscular HGB Conc 32 g/dl (31-36); Mean Corpuscular Hemoglobin 23 pg (27-31); Mean Corpuscular Volume 73 fL (80-97); Mean Platelet Volume 8 um3 (7.4-10.4); Red Blood Count 3.79 10^6/ul (4.0-5.4); Red Cell Distribution Width 16 % (10.5-15); White Blood Count 11.4 10^3/ul (3.5-10.8)
[2016-06-13 12:54] LABS: Add Diff/Slide Review? Slide Review Added; Comments Flag Yes
[2016-06-13 13:08] LABS: Albumin 2.6 g/dL (3.2-5.2); Calcium 8.8 mg/dL (8.6-10.3); EGFR African American 194.7 (>60); EGFR Non-African American 151.4 (>60); Globulin 2.9 g/dL (2-4); Total Bilirubin 0.6 mg/dL (0.2-1.0); Total Protein 5.5 g/dL (6.4-8.9)
[2016-06-13 13:10] LABS: Troponin I 0.01 ng/mL (<0.04)
[2016-06-13 13:38] LABS: C Reactive Protein 145.93 mg/L (< 5.00)
[2016-06-13] MEDS ORDERED: Levofloxacin 750 MG IVPREMIX(* 750 MG/150 ML BAG IVPB ONE (13:47)
--- NOTE | 2016-06-13 13:56 | RAD ---
INDICATION: Short of breath. Pneumonia. History of lung carcinoma COMPARISON: CT June 06, 2016; chest x-ray June 06, 2016 TECHNIQUE: An AP portable view obtained at 1245 hours is submitted. FINDINGS: Bones/Soft Tissues: There are no acute bony findings. There is a left-sided Sjacom-n-Layc catheter. Cardiomediastinal: The cardiac silhouette is abnormal with a right mediastinal mass appearing slightly less conspicuous on today's examination. Lungs: No acute infiltrates. The right-sided mediastinal mass and the multiple pulmonary parenchymal nodules appear less conspicuous Pleura: There are no pleural effusions. Other: None IMPRESSION: THE ABNORMAL CARDIAC CONTOUR AND MULTIPLE LUNG MASSES APPEAR SLIGHTLY LESS CONSPICUOUS. THERE ARE NO ACUTE INFILTRATES.
[2016-06-13] MEDS ORDERED: NS 0.9% 1000 ML* 1,000 ML IV SCH (15:30)
[2016-06-13] MEDS ORDERED: Albuterol 2.5 MG/3 ML NEB.SOL* (0.083%) INH PRN (15:52)
[2016-06-13] MEDS ORDERED: Benzonatate CAP* 100 MG PO PRN (15:59)
--- NOTE | 2016-06-13 16:45 | RAD ---
INDICATION: Right shoulder pain with movement. COMPARISON: Comparison is made with a prior CT of the chest from June 06, 2016. TECHNIQUE: 3 views of the right shoulder were obtained. FINDINGS: The bones are in normal alignment. No significant focal osseous abnormality or fracture is seen. There is mild osteoarthritic change in the acromioclavicular joint. Note is made of a right hilar mass and scattered pulmonary nodules as noted on the prior CT of the chest from June 06, 2016. IMPRESSION: 1. MILD OSTEOARTHRITIC CHANGE IN THE ACROMIOCLAVICULAR JOINT. NO ACUTE FINDING IS SEEN. IF THE PATIENT'S SYMPTOMS PERSIST CONSIDER MR OR CT IMAGING. 2. RIGHT HILAR MASS AND MULTIPLE PULMONARY NODULES NOTED ON THE RECENT PRIOR CT OF THE CHEST.
[2016-06-13] MEDS ORDERED: Iohexol 300* (CONTRAST) 10 ML SDV IV ONE (16:50)
[2016-06-13] MEDS: HYDROcodone/ACET. 7.5/325 LIQ* 15 ML UDC PO PRN ×2 (17:20→21:38)
[2016-06-13] MEDS: Ondansetron INJ* 2 MG/ML VIAL IV PRN (17:20)
--- NOTE | 2016-06-13 18:07 | RAD ---
INDICATION: Lung mass evaluate for metastatic disease. COMPARISON: Correlation is made to prior MRI of the brain from September 16, 2015. TECHNIQUE: Contiguous axial sections of the brain were obtained from the skull base to the vertex without contrast. FINDINGS: The ventricles, cisterns and sulci are within normal limits. There is a small area of decreased attenuation present in the subcortical white matter in the left frontal lobe unchanged from the prior MRI study most consistent with a small old lacunar infarct or area of chronic small vessel ischemic changes. No other focal abnormality or mass effect is seen. There is no evidence for hemorrhage. The visualized portion of the paranasal sinuses appear clear. There is a small amount of fluid within the right mastoid air cells which is unchanged from the prior MRI of the brain. IMPRESSION: NO EVIDENCE FOR METASTATIC DISEASE ON THIS NONCONTRAST STUDY.
[2016-06-13] MEDS: Clindamycin 600 MG IVPREMIX(* 600 MG/50 ML SDV IV SCH (18:08)
--- NOTE | 2016-06-13 18:37 | PN ---
Hospitalist Progress Note Called by Dr. Genao that patient was found to have air in the nichole of the colon. Stated that there are numerous benign causes of this but more concerning etiologies like ischemia seem unlikely with patient's clinical presentation (no abdominal pain) and normal lactate.
--- NOTE | 2016-06-13 18:48 | RAD ---
INDICATION: Lung mass, evaluate for metastatic disease. COMPARISON: Comparison is made with a prior PET/CT study from November 17, [address] of the chest from June 06, 2016. TECHNIQUE: A CT scan of the abdomen and pelvis was performed with intravenous and oral contrast following intravenous injection of 101 ml of Omnipaque 300 nonionic contrast. Contiguous axial sections were obtained from the lung bases through the symphysis pubis. Images were reconstructed in the coronal and sagittal planes. FINDINGS: There is mild dependent bilateral lower lobe subsegmental atelectasis in the visualized portion of the right middle lobe and nodular thickening along the minor fissure which is unchanged from the prior chest CT study. No pleural effusion is present. The liver is moderately enlarged and decreased in attenuation consistent with fatty infiltration. There is a small 8 mm fluid density lesion in the anterior segment of the right hepatic lobe which is seen on the prior PET/CT study and is a nonspecific finding although likely represents a cyst. No other focal abnormalities are seen. No intra or extrahepatic ductal distention is seen. No calcified gallstones are present. The pancreas appears to be within normal limits. The kidneys and adrenal glands are normal in size. No hydronephrosis is seen. There is a 1.5 cm slightly complex cyst present in the upper pole of the left kidney. The aorta is normal in caliber with mild calcific plaque present. This celiac, superior and inferior mesenteric arteries appear widely patent. No significant enlarged retroperitoneal lymph nodes are seen. The stomach, small and large bowel appear nondistended. There is a gastrostomy tube present in the body of the stomach. There is air within the wall of the ascending and transverse colon. No mesenteric or portal vein gas is seen. No bowel wall thickening is present. There is no evidence for colitis or diverticulitis. No free intraperitoneal air or fluid is seen. No significant focal osseous abnormality is seen. The results of this exam were called to the referring clinician. IMPRESSION: 1. THERE IS PNEUMATOSIS IN THE WALL OF THE DESCENDING AND TRANSVERSE COLON AND TO A LESSER'S EXTENT THE DESCENDING COLON. NO WALL THICKENING OR EVIDENCE FOR COLITIS IS PRESENT. THIS IS LIKELY SECONDARY TO A BENIGN CAUSE AND LESS LIKELY SECONDARY IS TO INTESTINAL ISCHEMIA. RECOMMEND CLINICAL CORRELATION AND FOLLOW-UP. 2. NO EVIDENCE FOR METASTATIC DISEASE IN THE ABDOMEN. THERE IS A SMALL HYPODENSE HEPATIC LESION LIKELY REPRESENTING A CYST AND A SMALL COMPLEX LEFT RENAL CYST. RECOMMEND A RIGHT UPPER QUADRANT AND RENAL ULTRASOUND FOR FURTHER EVALUATION. 3. PERCUTANEOUS GASTROSTOMY TUBE IN PLACE.
--- NOTE | 2016-06-13 20:40 | ED ---
Arielle Walsh Anna, scribed for Elvin Pacheco MD on 06/13/16 at 1244 . Shortness of Breath - HPI Summary HPI Summary: Patient is a 65 y/o female coming to [facility] presenting with gradual onset of SOB that began one week ago. The patient reports that since being discharged from the hospital on 06/11/2016, her symptoms have worsened. At that time, she was treated for PNA. She said her symptoms had been improving, but worsened after being discharged. Her SOB and dizziness are exacerbated when she gets up to go to the bathroom. She denies use of O2 at home. She additionally reports diaphoresis but denies fever. - History of Current Complaint Hx Obtained From: Patient - Allergy/Home Medications Allergies/Adverse Reactions: Allergies Allergy/AdvReac Type Severity Reaction Status Date / Time Penicillins Allergy Intermediate Rash Verified 03/25/16 12:03 Lisinopril Allergy Rash Verified 03/25/16 12:03 Home Medications: Home Medications Clindamycin CAP* [Cleocin 150 MG CAP*] 150 mg PO TID 06/13/16 [History Confirmed 06/13/16] Labetalol TAB* [Trandate TAB*] 300 mg PO BID 06/13/16 [History Confirmed ] PMH/Surg Hx/FS Hx/Imm Hx Endocrine/Hematology History: Denies: Hx Diabetes, Hx Systemic Lupus Erythematosus Cardiovascular History: Reports: Hx Hypertension - ON DAILY MEDS Denies: Hx Congestive Heart Failure, Hx Pacemaker/ICD Respiratory History: Reports: Other Respiratory Problems/Disorders - excess phlegm GI History: Reports: Other GI Disorders - feeding tube placed History: Denies: Hx Dialysis, Hx Renal Disease Musculoskeletal History: Reports: Hx Arthritis Denies: Hx Rheumatoid Arthritis Sensory History: Reports: Hx Cataracts, Hx Contacts or Glasses - GLASSES Denies: Hx Hearing Aid Opthamlomology History: Reports: Hx Cataracts, Hx Contacts or Glasses - GLASSES Psychiatric History: Denies: Hx Panic Disorder - Cancer History Cancer Type, Location and Year: mouth cancer Hx Chemotherapy: Yes - 02/16/16 Hx Radiation Therapy: Yes - 02/18/16 Hx Palliative Cancer Treatment: No - Surgical History Surgery Procedure, Year, and Place: 12/2015 CANCER OF FLOOR OF MOUTH [place] Hx Anesthesia Reactions: No - Family History Known Family History: Negative: Other - malignant hyperthermia, anesthesia reaction - Social History Occupation: Retired Lives: With Family Alcohol Use: None Substance Use Type: Reports: None Smoking Status (MU): Former Smoker Type: Cigars Amount Used/How Often: OCCASSIONAL CIGAR PAST 5 YRS Have You Smoked in the Last Year: Yes Review of Systems Positive: Skin Diaphoresis. Negative: Fever Positive: Shortness Of Breath Neurological: Other - dizziness All Other Systems Reviewed And Are Negative: Yes Physical Exam Triage Information Reviewed: Yes Vital Signs On Initial Exam: Initial Vitals Temp Pulse Resp BP Pulse Ox 98.3 F 83 20 128/81 91 06/13/16 12:45 06/13/16 12:45 06/13/16 12:45 06/13/16 12:45 06/13/16 12:45 Vital Signs Reviewed: Yes Appearance: Positive: Well-Appearing, No Pain Distress Skin: Positive: Warm, Skin Color Reflects Adequate Perfusion, Dry Head/Face: Positive: Normal Head/Face Inspection Eyes: Positive: Normal ENT: Positive: Normal ENT inspection Neck: Positive: Supple, Nontender Respiratory/Lung Sounds: Positive: Breath Sounds Present, Rhonchi Cardiovascular: Positive: RRR Abdomen Description: Positive: Nontender, Soft Bowel Sounds: Positive: Present Musculoskeletal: Positive: Normal Neurological: Positive: Normal Psychiatric: Positive: Normal Diagnostics - Vital Signs Vital Signs Temp Pulse Resp BP Pulse Ox 06/13/16 14:30 85 106/49 95 06/13/16 14:00 85 114/60 95 06/13/16 13:30 83 89 06/13/16 13:29 83 89 06/13/16 13:28 109/52 06/13/16 12:45 98.3 F 83 20 128/81 91 - Laboratory Lab Results: Lab Results 06/13/16 06/13/16 06/13/16 Range/Units 12:40 12:40 12:40 WBC 11.4 H (3.5-10.8) 10^3/ul RBC 3.79 L (4.0-5.4) 10^6/ul Hgb 8.8 L (12.0-16.0) g/dl Hct 28 L (35-47) % MCV 73 L (80-97) fL MCH 23 L (27-31) pg MCHC 32 (31-36) g/dl RDW 16 H (10.5-15) % Plt Count 223 (150-450) 10^3/ul MPV 8 (7.4-10.4) um3 Neut % (Auto) 86.8 H (38-83) % Lymph % (Auto) 2.4 L (25-47) % [place] % (Auto) 8.0 (1-9) % Eos % (Auto) 2.6 (0-6) % Baso % (Auto) 0.2 (0-2) % Absolute Neuts (auto) 9.9 H (1.5-7.7) 10^3/ul Absolute Lymphs (auto) 0.3 L (1.0-4.8) 10^3/ul Absolute Monos (auto) 0.9 H (0-0.8) 10^3/ul Absolute Eos (auto) 0.3 (0-0.6) 10^3/ul Absolute Basos (auto) 0 (0-0.2) 10^3/ul Absolute Nucleated RBC 0.01 10^3/ul Nucleated RBC % 0 Sodium 127 L (133-145) mmol/L Potassium 5.0 (3.5-5.0) mmol/L Chloride 92 L (101-111) mmol/L Carbon Dioxide 31 (22-32) mmol/L Anion Gap 4 (2-11) mmol/L BUN 21 (6-24) mg/dL Creatinine 0.42 L (0.51-0.95) mg/dL Est GFR ( Amer) 194.7 (>60) Est GFR (Non-Af Amer) 151.4 (>60) BUN/Creatinine Ratio 50.0 H (8-20) Glucose 105 H (70-100) mg/dL Lactic Acid 1.1 (0.5-2.0) mmol/L Calcium 8.8 (8.6-10.3) mg/dL Total Bilirubin 0.60 (0.2-1.0) mg/dL AST 70 H (13-39) U/L ALT 29 (7-52) U/L Alkaline Phosphatase 261 H (34-104) U/L Troponin I 0.01 (<0.04) ng/mL C-Reactive Protein 145.93 H (< 5.00) mg/L B-Natriuretic Peptide ( - 100) pg/mL Total Protein 5.5 L (6.4-8.9) g/dL Albumin 2.6 L (3.2-5.2) g/dL Globulin 2.9 (2-4) g/dL Albumin/Globulin Ratio 0.9 L (1-3) / Range/Units 12:40 WBC (3.5-10.8) 10^3/ul RBC (4.0-5.4) 10^6/ul Hgb (12.0-16.0) g/dl Hct (35-47) % MCV (80-97) fL MCH (27-31) pg MCHC (31-36) g/dl RDW (10.5-15) % Plt Count (150-450) 10^3/ul MPV (7.4-10.4) um3 Neut % (Auto) (38-83) % Lymph % (Auto) (25-47) % [place] % (Auto) (1-9) % Eos % (Auto) (0-6) % Baso % (Auto) (0-2) % Absolute Neuts (auto) (1.5-7.7) 10^3/ul Absolute Lymphs (auto) (1.0-4.8) 10^3/ul Absolute Monos (auto) (0-0.8) 10^3/ul Absolute Eos (auto) (0-0.6) 10^3/ul Absolute Basos (auto) (0-0.2) 10^3/ul Absolute Nucleated RBC 10^3/ul Nucleated RBC % Sodium (133-145) mmol/L Potassium (3.5-5.0) mmol/L Chloride (101-111) mmol/L Carbon Dioxide (22-32) mmol/L Anion Gap (2-11) mmol/L BUN (6-24) mg/dL Creatinine (0.51-0.95) mg/dL Est GFR ( Amer) (>60) Est GFR (Non-Af Amer) (>60) BUN/Creatinine Ratio (8-20) Glucose (70-100) mg/dL Lactic Acid (0.5-2.0) mmol/L Calcium (8.6-10.3) mg/dL Total Bilirubin (0.2-1.0) mg/dL AST (13-39) U/L ALT (7-52) U/L Alkaline Phosphatase (34-104) U/L Troponin I (<0.04) ng/mL C-Reactive Protein (< 5.00) mg/L B-Natriuretic Peptide 68 ( - 100) pg/mL Total Protein (6.4-8.9) g/dL Albumin (3.2-5.2) g/dL Globulin (2-4) g/dL Albumin/Globulin Ratio (1-3) Result Diagrams: 06/13/16 12:40 06/13/16 12:40 Lab Statement: Any lab studies that have been ordered have been reviewed, and results considered in the medical decision making process. - Radiology CXR Xray Interpretation: No Acute Changes Radiology Interpretation Completed By: Radiologist - IMPRESSION: THE ABNORMAL CARDIAC CONTOUR AND MULTIPLE LUNG MASSES APPEAR SLIGHTLY LESS CONSPICUOUS. THERE ARE NO ACUTE INFILTRATES. - EKG 1349 Cardiac Rate: NL - 84 bpm EKG Rhythm: Sinus Rhythm ST Segment: Normal Ectopy: None Course/Dx - Diagnoses Provider Diagnoses: Pneumonia - Physician Notifications Discussed Care of Patient With: Dr. Elizabeth (hospitalist) at 1410. Would like Dr. Gomez called as well, but the patient will be admitted. Dr. Nielsen ( oncologist) at 1421. The patient should be admitted by the hospitalist. Discharge - Discharge Plan Condition: Stable Disposition: ADMITTED TO [facility] The documentation as recorded by the Arielle bermudez Anna accurately reflects the service I personally performed and the decisions made by , Elvin Pacheco MD.
[2016-06-13] MEDS: Heparin VIAL(*) 5000 UNITS/ML VIAL (FIVE THOUSAND) SUBCUT SCH (21:39)
--- NOTE | 2016-06-13 22:12 | HP ---
HISTORY AND PHYSICAL: ADDENDUM: In regards to the patient's oral intake, we will hold on Jevity for now as she had emesis with this this morning. clear liquids and IV fluids. If she has no issues with that, I can consider advancing and restarting her feeds tomorrow. [id number]/[facility] [place]: [id number]
--- NOTE | 2016-06-13 22:37 | HP ---
HISTORY AND PHYSICAL: DATE OF ADMISSION: 06/13/16 PRIMARY CARE PHYSICIAN: Dr. Sarthak Ceron. CHIEF COMPLAINT: Worsening cough, dyspnea on exertion, and weakness. HISTORY OF PRESENT ILLNESS: Ms. Lozano is a 65-year-old female with a past medical history of squamous cell carcinoma of the tongue, status post resection and chemoradiation, TIA, and hypertension, who was recently admitted to the hospital for what was thought to be aspiration pneumonia. The patient was treated with Levaquin and clindamycin with improvement and discharged on . After discharge, however, the physician noted that a CT chest done during that hospitalization showed numerous solid cavitary lesions in the upper and lower lobes of the lungs. Also, some necrotic mediastinal lymphadenopathy. The patient was instructed to contact Dr. Bran to try to schedule a bronchoscopy; however, she has been unable to do this yet. Over the past days since discharge, she states that she is still coughing and it has been progressively worse. Also, has felt very weak. She says she gets lightheaded when she stands up. She denies any worsening edema; however, she has been wheezy. She states she has some right arm and right upper back pain that is present mostly when she coughs. This morning, she took her Jevity and morning pills; however, she threw them up and noticed some worsening coughing and choking afterwards. She came to the hospital for further evaluation. PAST MEDICAL HISTORY: 1. Squamous cell carcinoma of the tongue, status post resection and chemoradiation with recent cavitary lesions noted on CT scan. 2. TIA. 3. Hypertension. PAST SURGICAL HISTORY: Lymph node resection, December 2015. HOME MEDICATIONS: 1. Levofloxacin 750 mg by mouth nightly. 2. Tessalon 200 mg by mouth 3 times daily. 3. Hydrocodone/acetaminophen 15 mL by mouth every 3 hours as needed for pain. 4. Labetalol 300 mg by mouth 2 times daily. 5. Hydralazine 50 mg by mouth 2 times daily. 6. Clindamycin 150 mg by mouth 3 times daily. ALLERGIES: PENICILLIN, she gets a rash. FAMILY HISTORY: Significant for a father with CVA. Mother with emphysema. She has brothers and sisters who she does not talk to. SOCIAL HISTORY: The patient denies any cigarette use, but smokes cigars, perhaps about 1 a day for 15 years. Denies any alcohol use. No illicit drug use. REVIEW OF SYSTEMS: A 12-point review of systems negative except for that noted in the HPI. PHYSICAL EXAMINATION GENERAL: The patient is an elderly female, appears older than stated age, ill appearing with frequent cough. VITAL SIGNS: On admission, temperature 98.3, heart rate of 83, respiratory rate of 20, O2 saturation 91% on 2 L, blood pressure 128/81. HEENT: Pupils equal, round, reactive to light and accommodation. Anicteric sclerae. Moist mucous membranes. NECK: Asymmetric cervical lymph nodes, more prominent on the left. Postsurgical changes in the right. LUNGS: With diffuse inspiratory and expiratory wheezing throughout. CARDIOVASCULAR: Regular rate and rhythm. S1, S2 present. No murmurs, gallops , or rubs. ABDOMEN: Soft, nontender, nondistended. PEG tube in place. EXTREMITIES: Some mild nonpitting edema. NEUROLOGIC: The patient is alert and oriented x3. No focal neurological deficits; however, has pain when lifting the right arm that she states started with her cough and has been worse with it. LABS AND DIAGNOSTICS: White blood cell count of 11.4, hemoglobin of 8.8, hematocrit of 28, platelets 223. Sodium of 127, potassium 5.0, chloride of 92, carbon dioxide of 31, BUN of 41, creatinine of 0.42, glucose of 105. AST of 70 , alk phos of 261, remainder of LFTs within normal limits. CRP of 145. Albumin of 2.6. EKG personally reviewed shows normal sinus rhythm. Chest x-ray shows some improvement in the lungs and no new infiltrates. CT of the chest from previous admission shows necrotic mediastinal lymph nodes and numerous solid and cavitary upper and lower lobe pulmonary lesions. ASSESSMENT AND PLAN: Likely metastatic pulmonary lesions, possibly from initial squamous cell carcinoma and concern for possible aspiration pneumonia in a 65-year- old female with past medical history of squamous cell carcinoma of the tongue, transient ischemic attack, and hypertension, and recent admission for aspiration pneumonia. 1. Necrotic cavitating lung lesions, concern for metastatic disease: Spoke with Dr. Bran who will evaluate the patient tomorrow to consider her for bronchoscopy. TB is also in the differential. The patient denies any history of this. We will order AFB smears x3 on sputum. The patient will need to be on precautions until ruled out pending further workup. May need an Oncology consult in the hospital, but will likely need to follow up with another group as an outpatient as she was fired from our Oncology group. We will also get CT brain and abdomen and pelvis to look for any other signs of metastatic disease. 2. Aspiration pneumonia: The patient was treated with antibiotics from previous admission, today is day 8 of treatment. She has received 8 days of levofloxacin. We will hold on this for now. We will continue with clindamycin alone. White count is essentially unchanged and only mildly elevated. If the patient spikes any further fevers, can broaden coverage. We will write for some nebulizer therapy as well. In regards to the patient's oral intake, we will hold on Jevity for now as she had emesis with this this morning. Can have clear liquids and IV fluids. If she has no issues with that, I can consider advancing and restarting her feeds tomorrow. 3. Hypertension: Hold antihypertensives for now. 4. DVT prophylaxis: Heparin subcu. 5. Arm pain: We will get an x-ray of the shoulder to ensure no fractures. Can consider additional imaging to rule out metastatic bone disease. TIME SPENT: Total time spent on this admission, 50 minutes, with over half the time spent [id number] with the patient counseling and coordinating care. CC: Dr. Sarthak Ceron* [id number]/[facility] #: [id number]/[facility] #: [id number] DAO
[2016-06-14] MEDS: Clindamycin 600 MG IVPREMIX(* 600 MG/50 ML SDV IV SCH ×4 (00:11→23:43)
[2016-06-14] MEDS: HYDROcodone/ACET. 7.5/325 LIQ* 15 ML UDC PO PRN ×4 (04:36→23:43)
[2016-06-14] MEDS: GuaiFENesin DM* 5 ML UDC PO PRN ×3 (06:29→21:36)
[2016-06-14] MEDS: Heparin VIAL(*) 5000 UNITS/ML VIAL (FIVE THOUSAND) SUBCUT SCH ×3 (06:32→21:39)
[2016-06-14 08:26] LABS: Hematocrit 25 % (35-47); Mean Corpuscular HGB Conc 32 g/dl (31-36); Mean Corpuscular Hemoglobin 24 pg (27-31); Mean Platelet Volume 8 um3 (7.4-10.4); Red Blood Count 3.37 10^6/ul (4.0-5.4); Red Cell Distribution Width 16 % (10.5-15); White Blood Count 10.2 10^3/ul (3.5-10.8)
[2016-06-14 08:29] LABS: Comments Flag Yes; Mean Corpuscular Volume 73 fL (80-97)
[2016-06-14 08:48] LABS: Albumin 2.3 g/dL (3.2-5.2); BUN/Creatinine Ratio 45.5 (8-20); Calcium 8.3 mg/dL (8.6-10.3); EGFR African American 257.2 (>60); Globulin 2.4 g/dL (2-4); Potassium 3.3 mmol/L (3.5-5.0); Total Bilirubin 0.6 mg/dL (0.2-1.0); Total Protein 4.7 g/dL (6.4-8.9)
[2016-06-14] MEDS ORDERED: Levofloxacin 500 MG IVPREMIX(* 500 MG/100 ML BAG IVPB SCH (16:00)
--- NOTE | 2016-06-14 16:02 | PN ---
Subjective Date of Service: 06/14/16 Interval History: Cough relieved better by DXM-cough syrup than benzonatate. Appetite OK. Feels wobbly on her legs. Objective Active Medications: Hydrocodone Bitart/Acetaminophen (Nortab 7.5/325 Liq*) 15 ml PO Q6H PRN PRN Reason: PAIN Last Admin: 06/14/16 10:49 Dose: 15 ml Albuterol (Ventolin 2.5 Mg/3 Ml Neb.Annie*) 2.5 mg INH Q4H PRN PRN Reason: SOB/WHEEZING Benzonatate (Tessalon Cap*) 100 mg PO BID PRN PRN Reason: COUGH Guaifenesin/Dextromethorphan (Robitussin Dm*) 10 ml PO Q6H PRN PRN Reason: COUGH Last Admin: 06/14/16 13:26 Dose: 10 ml Heparin Sodium (Porcine) (Heparin Vial(*)) 5,000 units SUBCUT Q8HR [facility] Last Admin: 06/14/16 13:26 Dose: 5,000 units Clindamycin HCl/Dextrose (Cleocin 600 Mg Ivpremix(*) Sdv) 600 mg in 50 mls @ 100 mls/hr IV Q8H [facility] Last Admin: 06/14/16 08:37 Dose: 100 mls/hr Ondansetron HCl (Zofran Inj*) 4 mg IV Q4H PRN PRN Reason: NAUSEA/VOMITING Last Admin: 06/13/16 17:20 Dose: 4 mg Vital Signs 06/13/16 06/13/16 06/13/16 16:07 16:30 17:20 Temperature 98.3 F 98.2 F Pulse Rate 85 94 Respiratory 20 20 18 Rate Blood Pressure 109/52 138/62 (mmHg) O2 Sat by Pulse 98 Oximetry 06/13/16 06/13/16 06/13/16 19:20 20:00 21:38 Temperature Pulse Rate 94 Respiratory 18 18 18 Rate Blood Pressure (mmHg) O2 Sat by Pulse 98 Oximetry 06/13/16 06/14/16 06/14/16 23:38 00:36 04:36 Temperature 98.0 F Pulse Rate 88 Respiratory 16 20 Rate Blood Pressure 119/53 (mmHg) O2 Sat by Pulse 98 Oximetry 06/14/16 06/14/16 06/14/16 06:36 08:42 10:49 Temperature 97.8 F Pulse Rate 92 Respiratory 18 18 18 Rate Blood Pressure 122/65 (mmHg) O2 Sat by Pulse 96 Oximetry 06/14/16 12:49 Temperature Pulse Rate Respiratory 16 Rate Blood Pressure (mmHg) O2 Sat by Pulse Oximetry Oxygen Devices in Use Now: Nasal Cannula Appearance: Alert, partly up in bed. In fair spirits. Looks comfortable. Eyes: No Scleral Icterus Neck: NL Appearance and Movements; NL JVP, No Thyroid Enlargement, Masses Respiratory: Symmetrical Chest Expansion and Respiratory Effort, Clear to Percussion, - - mild wheezing BL Cardiovascular: NL Sounds; No Murmurs; No JVD, RRR, No Edema, - Extremities: No Edema, No Clubbing, Cyanosis, - Skin: No Rash or Ulcers, No Nodules or Sclerosis, - Neurological: Alert and Oriented x 3, NL Sensation Result Diagrams: 06/14/16 07:52 06/14/16 07:52 Additional Lab and Data: Lab Results 06/13/16 06/13/16 06/13/16 Range/Units 12:40 12:40 12:40 WBC 11.4 H (3.5-10.8) 10^3/ul RBC 3.79 L (4.0-5.4) 10^6/ul Hgb 8.8 L (12.0-16.0) g/dl Hct 28 L (35-47) % MCV 73 L (80-97) fL MCH 23 L (27-31) pg MCHC 32 (31-36) g/dl RDW 16 H (10.5-15) % Plt Count 223 (150-450) 10^3/ul MPV 8 (7.4-10.4) um3 Neut % (Auto) 86.8 H (38-83) % Lymph % (Auto) 2.4 L (25-47) % [place] % (Auto) 8.0 (1-9) % Eos % (Auto) 2.6 (0-6) % Baso % (Auto) 0.2 (0-2) % Absolute Neuts (auto) 9.9 H (1.5-7.7) 10^3/ul Absolute Lymphs (auto) 0.3 L (1.0-4.8) 10^3/ul Absolute Monos (auto) 0.9 H (0-0.8) 10^3/ul Absolute Eos (auto) 0.3 (0-0.6) 10^3/ul Absolute Basos (auto) 0 (0-0.2) 10^3/ul Absolute Nucleated RBC 0.01 10^3/ul Nucleated RBC % 0 Sodium 127 L (133-145) mmol/L Potassium 5.0 (3.5-5.0) mmol/L Chloride 92 L (101-111) mmol/L Carbon Dioxide 31 (22-32) mmol/L Anion Gap 4 (2-11) mmol/L BUN 21 (6-24) mg/dL Creatinine 0.42 L (0.51-0.95) mg/dL Est GFR ( Amer) 194.7 (>60) Est GFR (Non-Af Amer) 151.4 (>60) BUN/Creatinine Ratio 50.0 H (8-20) Glucose 105 H (70-100) mg/dL Lactic Acid 1.1 (0.5-2.0) mmol/L Calcium 8.8 (8.6-10.3) mg/dL Total Bilirubin 0.60 (0.2-1.0) mg/dL AST 70 H (13-39) U/L ALT 29 (7-52) U/L Alkaline Phosphatase 261 H (34-104) U/L Troponin I 0.01 (<0.04) ng/mL C-Reactive Protein 145.93 H (< 5.00) mg/L B-Natriuretic Peptide ( - 100) pg/mL Total Protein 5.5 L (6.4-8.9) g/dL Albumin 2.6 L (3.2-5.2) g/dL Globulin 2.9 (2-4) g/dL Albumin/Globulin Ratio 0.9 L (1-3) 06/13/ Range/Units 12:40 WBC (3.5-10.8) 10^3/ul RBC (4.0-5.4) 10^6/ul Hgb (12.0-16.0) g/dl Hct (35-47) % MCV (80-97) fL MCH (27-31) pg MCHC (31-36) g/dl RDW (10.5-15) % Plt Count (150-450) 10^3/ul MPV (7.4-10.4) um3 Neut % (Auto) (38-83) % Lymph % (Auto) (25-47) % [place] % (Auto) (1-9) % Eos % (Auto) (0-6) % Baso % (Auto) (0-2) % Absolute Neuts (auto) (1.5-7.7) 10^3/ul Absolute Lymphs (auto) (1.0-4.8) 10^3/ul Absolute Monos (auto) (0-0.8) 10^3/ul Absolute Eos (auto) (0-0.6) 10^3/ul Absolute Basos (auto) (0-0.2) 10^3/ul Absolute Nucleated RBC 10^3/ul Nucleated RBC % Sodium (133-145) mmol/L Potassium (3.5-5.0) mmol/L Chloride (101-111) mmol/L Carbon Dioxide (22-32) mmol/L Anion Gap (2-11) mmol/L BUN (6-24) mg/dL Creatinine (0.51-0.95) mg/dL Est GFR ( Amer) (>60) Est GFR (Non-Af Amer) (>60) BUN/Creatinine Ratio (8-20) Glucose (70-100) mg/dL Lactic Acid (0.5-2.0) mmol/L Calcium (8.6-10.3) mg/dL Total Bilirubin (0.2-1.0) mg/dL AST (13-39) U/L ALT (7-52) U/L Alkaline Phosphatase (34-104) U/L Troponin I (<0.04) ng/mL C-Reactive Protein (< 5.00) mg/L B-Natriuretic Peptide 68 ( - 100) pg/mL Total Protein (6.4-8.9) g/dL Albumin (3.2-5.2) g/dL Globulin (2-4) g/dL Albumin/Globulin Ratio (1-3) Assess/Plan/Problems-Billing Assessment: - Patient Problems (1) Pneumonia Current Visit: No Status: Acute Code(s): J18.9 - PNEUMONIA, UNSPECIFIED ORGANISM SNOMED Code(s): 396753000 Comment: Cavitating lung lesions, on airborne precaustions. Continue clindamycin. Already has some thick sputum in sample cup. Bronchoscopy 06/16. Discussed with Dr. Bran.. Quantiferon TB test sent off. (2) Squamous cell cancer of tongue Current Visit: No Status: Acute Code(s): C02.9 - MALIGNANT NEOPLASM OF TONGUE, UNSPECIFIED SNOMED Code(s): 151576053 Comment: S/P chemo/RT. Followed by Dr. Berry, to see [place] medical oncologist. Video swallow study shows she tolerates thin liquids and pureed food. Her cough is bothering her a lot but is continuing therapy.
--- NOTE | 2016-06-14 16:59 | CONS ---
PULMONARY CONSULTATION REPORT: DATE OF CONSULT: 06/14/16 CONSULTATION REQUESTED BY: Dr. Elizabeth. 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 The patient subsequently has been following up with Dr. Berry, Radiation Oncology. The patient was brought in to the ED for evaluation of worsening cough and shortness of breath. The patient reports low grade fevers at home. The patient reports worsening shortness of breath and productive cough recently. The patient denies hemoptysis. The patient was recently admitted for aspiration pneumonia, was treated with Levaquin and clindamycin, and was discharged on 06/11/16. The patient had CT scan of chest performed during that admission, which was not noticed until after discharge. I personally reviewed the CT scan of the chest. The patient noted to have bilateral cavitary lesions and evidence of significant necrotic-appearing mediastinal adenopathy. The patient also with evidence of airspace opacities in right middle lobe and lingula concerning for postobstructive pneumonitis. The patient reports significant shortness of breath with exertion. The patient lives at home with help of her who is also currently admitted. The patient reports low-grade fever at home. The patient has PEG tube placement and the patient has trouble swallowing and is not able to eat much orally. She gets her Jevity through the PEG tube. The patient also noted to have elevated white count upon admission, which is improving. She also has elevated CRP. She was not able to provide sputum cultures yet. The patient was placed on isolation given cavitary lesions in her lungs. The patient is tearful during conversation and she is concerned about the possibility of malignancy and is depressed hearing that. The patient received Levaquin in the emergency room. She is currently being treated with clindamycin. PAST MEDICAL HISTORY: 1. Squamous cell carcinoma of the tongue, status post resection, chemoradiation with recent cavitary lesions. 2. TIA. 3. Hypertension. PAST SURGICAL HISTORY: Lymph node resection in December 2015. MEDICATIONS: 1. Levofloxacin 750 mg. 2. Tessalon. 3. Hydrocodone and acetaminophen. 4. Labetalol. 5. Hydralazine. 6. Clindamycin. ALLERGIES: PENICILLIN. FAMILY HISTORY: Father with CVA, mother with emphysema, brothers and sisters with unknown problems. SOCIAL HISTORY: Denies cigarette use currently, still continues to smoke cigars. Denies alcohol use. Denies drug abuse. REVIEW OF SYSTEMS: A 12-point review of systems is negative other than stated in HPI. PHYSICAL EXAMINATION: GENERAL: The patient in bed, in no apparent distress. VITAL SIGNS: Temperature 97.8, pulse 92 beats per minute, respiratory rate 18 per minute, O2 saturation 96% on 2 L, blood pressure 122/65. HEENT: Pupils equal, reactive to light. Mucous membranes moist. NECK: Supple. No JVD. LUNGS: Diffuse inspiratory and expiratory wheeze throughout. CARDIOVASCULAR: S1, S2 present. Regular. No murmurs, gallops, or rubs. ABDOMEN: Soft, nontender, nondistended. PEG tube in place. EXTREMITIES: Mild nonpitting edema bilaterally. NEUROLOGIC: Alert, awake, oriented x3. DIAGNOSTIC STUDIES/LAB DATA: WBC count 10.2, hemoglobin 8.0, hematocrit 25, platelet count 201. Sodium 129, potassium 3.3, chloride 94, bicarb 30, BUN 15, creatinine 0.33. Troponins negative. CT scan of the chest as described above in HPI. IMPRESSION AND RECOMMENDATIONS: 65-year-old female with history of squamous cell carcinoma of tongue, status post chemoradiation and surgery, now with cavitary lesions bilaterally, necrotic and significantly enlarged mediastinal and hilar adenopathy with shortness of breath and cough. Necrotic cavitary lesions, differential could be broad infectious versus metastatic disease versus new primary. Given cavitary lesions, will need to rule out possibility of tuberculosis or nontuberculous mycobacterial infection with 3 sputums or with QuantiFERON. The lesions could also be from recurrent aspiration pneumonia. Continue with clindamycin. Will need sputum cultures for AFB and regular bacterial cultures. Once we are able to rule out possibility of active tuberculosis infection or mycobacterial infection, will be able to move further with bronchoscopy and EBUS, will plan on scheduling it this Sunday. Continue with O2 supplementation. Thank you for allowing me to participate in the care of your patient. Total time spent 50 min with [id number] time of 30 minutes . D/w Dr Iglesias [id number]/[facility] #: [id number] DAO
[2016-06-15] MEDS: GuaiFENesin DM* 5 ML UDC PO PRN ×3 (03:52→18:25)
[2016-06-15] MEDS: HYDROcodone/ACET. 7.5/325 LIQ* 15 ML UDC PO PRN ×2 (04:00→11:53)
[2016-06-15] MEDS: Clindamycin 600 MG IVPREMIX(* 600 MG/50 ML SDV IV SCH ×2 (06:11→15:39)
[2016-06-15] MEDS: Heparin VIAL(*) 5000 UNITS/ML VIAL (FIVE THOUSAND) SUBCUT SCH ×3 (06:20→21:43)
[2016-06-15] MEDS: Ondansetron INJ* 2 MG/ML VIAL IV PRN ×2 (10:32→15:39)
[2016-06-15 11:42] LABS: Hematocrit 26 % (35-47); Hemoglobin 8.2 g/dl (12.0-16.0); Mean Corpuscular HGB Conc 32 g/dl (31-36); Mean Corpuscular Hemoglobin 23 pg (27-31); Mean Corpuscular Volume 73 fL (80-97); Mean Platelet Volume 9 um3 (7.4-10.4); Red Blood Count 3.55 10^6/ul (4.0-5.4); Red Cell Distribution Width 16 % (10.5-15)
[2016-06-15 11:44] LABS: Comments Flag Yes
--- NOTE | 2016-06-15 12:08 | PN ---
Progress Note - Progress Note Note: Pulm consult f/u note 06/15/16. Pt seen and examined at bedside. Pt reported nausea, no vomiting and back pain. Active Medications Generic Name Dose Route Start Last Admin Trade Name Freq PRN Reason Stop Dose Admin Hydrocodone Bitart/Acetaminophen 15 ml 06/13/16 15:54 06/15/16 11:53 Nortab 7.5/325 Liq* PO 15 ml Q6H PRN Administration PAIN Albuterol 2.5 mg 06/13/16 15:52 Ventolin 2.5 Mg/3 Ml Neb.Annie* INH Q4H PRN SOB/WHEEZING Benzonatate 100 mg 06/13/16 15:59 Tessalon Cap* PO BID PRN COUGH Famotidine 20 mg 06/16/16 06:00 Pepcid Iv* IV 06/16/16 06:01 ONCE ONE Guaifenesin/Dextromethorphan 10 ml 06/13/16 15:59 06/15/16 11:54 Robitussin Dm* PO 10 ml Q6H PRN Administration COUGH Heparin Sodium (Porcine) 5,000 units 06/13/16 22:00 06/15/16 06:20 Heparin Vial(*) SUBCUT 5,000 units Q8HR [facility] Administration Clindamycin HCl/Dextrose 600 mg in 50 mls @ 100 mls/hr 06/13/16 16:00 06:11 Cleocin 600 Mg Ivpremix(*) Sdv IV 100 mls/hr Q8H [facility] Administration Sodium Chloride 1,000 mls @ 100 mls/hr 06/16/16 00:00 Ns 0.9% 1000 Ml* IV PER RATE [facility] Lidocaine/Sodium Bicarbonate 0.2 ml 06/16/16 06:00 Buffered Lidocaine 1% Syrin* INTRADERM 06/16/16 06:01 ONCE ONE Ondansetron HCl 4 mg 06/13/16 15:24 06/15/16 10:32 Zofran Inj* IV 4 mg Q4H PRN Administration NAUSEA/VOMITING Vital Signs Temp Pulse Resp BP Pulse Ox 97.6 F 92 16 144/71 97 06/15/16 07:56 06/15/16 07:56 06/15/16 11:53 06/15/16 07:56 06/15/16 07:56 Gen: Alert, in NAD HEENT: No Scleral Icterus Neck: NL Appearance and Movements; NL JVP, No Thyroid Enlargement, Masses Respiratory: Symmetrical Chest Expansion and Respiratory Effort, Clear to Percussion, mild wheezing BL Cardiovascular: NL Sounds; No Murmurs; No JVD, RRR, No Edema Extremities: No Edema, No Clubbing, Cyanosis Skin: No Rash or Ulcers, No Nodules or Sclerosis Neurological: Alert and Oriented x 3, NL Sensation Laboratory Results - last 24 hr 06/15/16 06/15/16 06:01 06:01 WBC 12.0 H RBC 3.55 L Hgb 8.2 L Hct 26 L MCV 73 L MCH 23 L MCHC 32 RDW 16 H Plt Count 233 MPV 9 Blood Type O Negative I/R: 65 y o f with h/o squamous cell carcinoma of tongue s/p chemo/XRT with worsening SOB, cough, found to have cavitary lung lesions, necrotic mediastinal and hilar nodes and post obstructive PNA/aspiration PNA Cavitating lung lesions- AFB x2 is negative D/c resp isolation Continue clindamycin Bronchoscopy/EBUS scheduled for 06/16 for evaluation of mediastinal adenopathy and cavitary lung lesions. Risks and benefits of procedure were thoroughly explained. NPO after midnight Hold PEG feeds after midnight Pt has oral cavity that is constricted due to malignancy and couldnot open her mouth very wide. D/w Dr Iglesias
[2016-06-15 12:17] LABS: BUN/Creatinine Ratio 42.9 (8-20); Calcium 8.3 mg/dL (8.6-10.3); EGFR African American 240.3 (>60); EGFR Non-African American 186.9 (>60); Potassium 3.4 mmol/L (3.5-5.0)
--- NOTE | 2016-06-15 12:28 | PN ---
Subjective Date of Service: 06/15/16 Interval History: No new c/o. Cough partly relieved by DXM-guaifenesin syrup. Throat sore. Objective Active Medications: Hydrocodone Bitart/Acetaminophen (Nortab 7.5/325 Liq*) 15 ml G TUBE Q4H [facility] Albuterol (Ventolin 2.5 Mg/3 Ml Neb.Annie*) 2.5 mg INH Q4H PRN PRN Reason: SOB/WHEEZING Benzonatate (Tessalon Cap*) 100 mg PO BID PRN PRN Reason: COUGH Famotidine (Pepcid Iv*) 20 mg IV ONCE ONE Stop: 06/16/16 06:01 Guaifenesin/Dextromethorphan (Robitussin Dm*) 10 ml PO Q6H PRN PRN Reason: COUGH Last Admin: 06/15/16 11:54 Dose: 10 ml Heparin Sodium (Porcine) (Heparin Vial(*)) 5,000 units SUBCUT Q8HR [facility] Last Admin: 06/15/16 06:20 Dose: 5,000 units Clindamycin HCl/Dextrose (Cleocin 600 Mg Ivpremix(*) Sdv) 600 mg in 50 mls @ 100 mls/hr IV Q8H [facility] Last Admin: 06/15/16 06:11 Dose: 100 mls/hr Sodium Chloride (Ns 0.9% 1000 Ml*) 1,000 mls @ 100 mls/hr IV PER RATE [facility] Lidocaine/Sodium Bicarbonate (Buffered Lidocaine 1% Syrin*) 0.2 ml INTRADERM ONCE ONE Stop: 06/16/16 06:01 Ondansetron HCl (Zofran Inj*) 4 mg IV Q4H PRN PRN Reason: NAUSEA/VOMITING Last Admin: 06/15/16 10:32 Dose: 4 mg Potassium Chloride (Klor-Con Liquid*) 20 meq G TUBE Q3H [facility] Stop: 06/15/16 20:30 Vital Signs 06/14/16 06/14/16 06/14/16 12:49 16:29 18:39 Temperature 98.6 F 98.6 F Pulse Rate 105 121 Respiratory 16 Rate Blood Pressure 132/63 152/77 (mmHg) O2 Sat by Pulse 97 94 Oximetry 06/14/16 06/14/16 06/14/16 18:41 20:00 20:41 Temperature Pulse Rate Respiratory 20 20 24 Rate Blood Pressure (mmHg) O2 Sat by Pulse Oximetry 06/14/16 06/15/16 06/15/16 23:43 00:06 01:43 Temperature 98.8 F Pulse Rate 93 Respiratory 20 22 20 Rate Blood Pressure 140/71 (mmHg) O2 Sat by Pulse 96 Oximetry 06/15/16 06/15/16 06/15/16 04:00 06:00 07:56 Temperature 97.6 F Pulse Rate 92 Respiratory 20 20 18 Rate Blood Pressure 144/71 (mmHg) O2 Sat by Pulse 97 Oximetry 06/15/16 06/15/16 08:00 11:53 Temperature Pulse Rate Respiratory 18 16 Rate Blood Pressure (mmHg) O2 Sat by Pulse Oximetry Oxygen Devices in Use Now: Nasal Cannula Appearance: Alert, sitting up in bed. In fair spirits. Looks anxious. Eyes: No Scleral Icterus Ears/Nose/Mouth/Throat: Clear Oropharnyx, Mucous Membranes Moist Neck: NL Appearance and Movements; NL JVP, No Thyroid Enlargement, Masses Respiratory: Symmetrical Chest Expansion and Respiratory Effort, Clear to Auscultation, Clear to Percussion Cardiovascular: NL Sounds; No Murmurs; No JVD, RRR, No Edema, - Extremities: No Edema, No Clubbing, Cyanosis, - Skin: No Rash or Ulcers, No Nodules or Sclerosis, - Neurological: Alert and Oriented x 3, NL Sensation Result Diagrams: 06/15/16 06:01 06/15/16 06:01 Additional Lab and Data: Lab Results 06/13/16 06/13/16 06/13/16 Range/Units 12:40 12:40 12:40 WBC 11.4 H (3.5-10.8) 10^3/ul RBC 3.79 L (4.0-5.4) 10^6/ul Hgb 8.8 L (12.0-16.0) g/dl Hct 28 L (35-47) % MCV 73 L (80-97) fL MCH 23 L (27-31) pg MCHC 32 (31-36) g/dl RDW 16 H (10.5-15) % Plt Count 223 (150-450) 10^3/ul MPV 8 (7.4-10.4) um3 Neut % (Auto) 86.8 H (38-83) % Lymph % (Auto) 2.4 L (25-47) % [place] % (Auto) 8.0 (1-9) % Eos % (Auto) 2.6 (0-6) % Baso % (Auto) 0.2 (0-2) % Absolute Neuts (auto) 9.9 H (1.5-7.7) 10^3/ul Absolute Lymphs (auto) 0.3 L (1.0-4.8) 10^3/ul Absolute Monos (auto) 0.9 H (0-0.8) 10^3/ul Absolute Eos (auto) 0.3 (0-0.6) 10^3/ul Absolute Basos (auto) 0 (0-0.2) 10^3/ul Absolute Nucleated RBC 0.01 10^3/ul Nucleated RBC % 0 Sodium 127 L (133-145) mmol/L Potassium 5.0 (3.5-5.0) mmol/L Chloride 92 L (101-111) mmol/L Carbon Dioxide 31 (22-32) mmol/L Anion Gap 4 (2-11) mmol/L BUN 21 (6-24) mg/dL Creatinine 0.42 L (0.51-0.95) mg/dL Est GFR ( Amer) 194.7 (>60) Est GFR (Non-Af Amer) 151.4 (>60) BUN/Creatinine Ratio 50.0 H (8-20) Glucose 105 H (70-100) mg/dL Lactic Acid 1.1 (0.5-2.0) mmol/L Calcium 8.8 (8.6-10.3) mg/dL Total Bilirubin 0.60 (0.2-1.0) mg/dL AST 70 H (13-39) U/L ALT 29 (7-52) U/L Alkaline Phosphatase 261 H (34-104) U/L Troponin I 0.01 (<0.04) ng/mL C-Reactive Protein 145.93 H (< 5.00) mg/L B-Natriuretic Peptide ( - 100) pg/mL Total Protein 5.5 L (6.4-8.9) g/dL Albumin 2.6 L (3.2-5.2) g/dL Globulin 2.9 (2-4) g/dL Albumin/Globulin Ratio 0.9 L (1-3) 03/14/17 Range/Units 12:40 WBC (3.5-10.8) 10^3/ul RBC (4.0-5.4) 10^6/ul Hgb (12.0-16.0) g/dl Hct (35-47) % MCV (80-97) fL MCH (27-31) pg MCHC (31-36) g/dl RDW (10.5-15) % Plt Count (150-450) 10^3/ul MPV (7.4-10.4) um3 Neut % (Auto) (38-83) % Lymph % (Auto) (25-47) % [place] % (Auto) (1-9) % Eos % (Auto) (0-6) % Baso % (Auto) (0-2) % Absolute Neuts (auto) (1.5-7.7) 10^3/ul Absolute Lymphs (auto) (1.0-4.8) 10^3/ul Absolute Monos (auto) (0-0.8) 10^3/ul Absolute Eos (auto) (0-0.6) 10^3/ul Absolute Basos (auto) (0-0.2) 10^3/ul Absolute Nucleated RBC 10^3/ul Nucleated RBC % Sodium (133-145) mmol/L Potassium (3.5-5.0) mmol/L Chloride (101-111) mmol/L Carbon Dioxide (22-32) mmol/L Anion Gap (2-11) mmol/L BUN (6-24) mg/dL Creatinine (0.51-0.95) mg/dL Est GFR ( Amer) (>60) Est GFR (Non-Af Amer) (>60) BUN/Creatinine Ratio (8-20) Glucose (70-100) mg/dL Lactic Acid (0.5-2.0) mmol/L Calcium (8.6-10.3) mg/dL Total Bilirubin (0.2-1.0) mg/dL AST (13-39) U/L ALT (7-52) U/L Alkaline Phosphatase (34-104) U/L Troponin I (<0.04) ng/mL C-Reactive Protein (< 5.00) mg/L B-Natriuretic Peptide 68 ( - 100) pg/mL Total Protein (6.4-8.9) g/dL Albumin (3.2-5.2) g/dL Globulin (2-4) g/dL Albumin/Globulin Ratio (1-3) Microbiology and Other Data: Microbiology 06/15/16 09:00 Acid Fast Bacilli Smear - Final Respiratory - Sputum 06/14/16 22:00 Acid Fast Bacilli Smear - Final Respiratory - Sputum 06/14/16 16:50 Acid Fast Bacilli Smear - Final Respiratory - Sputum 06/14/16 16:20 Acid Fast Bacilli Smear - Final Respiratory - Sputum Assess/Plan/Problems-Billing Assessment: - Patient Problems (1) Pneumonia Current Visit: No Status: Acute Code(s): J18.9 - PNEUMONIA, UNSPECIFIED ORGANISM SNOMED Code(s): 967291795 Comment: Cavitating lung lesions. AFB smewar x 3 neg. Continue clindamycin. Bronchoscopy 06/16. Discussed with Dr. Bran. Quantiferon TB test sent. (2) Squamous cell cancer of tongue Current Visit: No Status: Acute Code(s): C02.9 - MALIGNANT NEOPLASM OF TONGUE, UNSPECIFIED SNOMED Code(s): 799332084 Comment: S/P chemo/RT. Followed by Dr. Berry, to see [place] medical oncologist. Video swallow study shows she tolerates thin liquids and pureed food. Her cough is bothering her a lot but is continuing therapy. Change liquid hydrocodone/ APAP to q 4 hr scheduled.
[2016-06-15] MEDS ORDERED: HYDROcodone/ACET. 7.5/325 LIQ* 15 ML UDC PO SCH (13:00)
[2016-06-15] MEDS: HYDROcodone/ACET. 7.5/325 LIQ* 15 ML UDC G TUBE SCH ×4 (13:11→21:34)
[2016-06-15] MEDS: Potassium Chloride LIQUID* 20 MEQ PACKET G TUBE SCH ×3 (13:19→21:34)
[2016-06-15] MEDS ORDERED: PROCHLORPERAZINE INJ 5 MG/ML 2 ML VIAL IV PRN (17:31)
[2016-06-15] MEDS ORDERED: Alteplase (CATHFLO)* 2 MG VIAL ONE (20:00)
[2016-06-16] MEDS: Clindamycin 600 MG IVPREMIX(* 600 MG/50 ML SDV IV SCH ×3 (00:07→16:54)
[2016-06-16] MEDS: GuaiFENesin DM* 5 ML UDC PO PRN ×3 (00:12→16:53)
[2016-06-16] MEDS: HYDROcodone/ACET. 7.5/325 LIQ* 15 ML UDC G TUBE SCH ×8 (00:53→22:09)
[2016-06-16] MEDS: Ondansetron INJ* 2 MG/ML VIAL IV PRN ×2 (03:50→16:54)
[2016-06-16] MEDS ORDERED: Buffered Lidocaine 1% SYRIN* 3 ML/SYR SYRINGE INTRADERM ONE (06:00)
[2016-06-16] MEDS ORDERED: Famotidine IV* 10 MG/ML 2 ML (20 mg) IV ONE (06:00)
[2016-06-16] MEDS: Heparin VIAL(*) 5000 UNITS/ML VIAL (FIVE THOUSAND) SUBCUT SCH ×3 (06:03→21:19)
[2016-06-16 06:23] LABS: BUN/Creatinine Ratio 56.3 (8-20); Calcium 8.6 mg/dL (8.6-10.3); EGFR African American 266.5 (>60); EGFR Non-African American 207.2 (>60); Potassium 3.2 mmol/L (3.5-5.0)
[2016-06-16] MEDS: NS 0.9% 1000 ML* 1,000 ML IV SCH (06:47)
--- NOTE | 2016-06-16 11:31 | PN ---
Progress Note - Progress Note Note: Pulm consult f/u note 06/16/16. Pt seen and examined at bedside. Pt reported cough and Rt shoulder pain, improved with pain meds. Active Medications Generic Name Dose Route Start Last Admin Trade Name Freq PRN Reason Stop Dose Admin Hydrocodone Bitart/Acetaminophen 15 ml 06/15/16 13:00 06/16/16 05:32 Nortab 7.5/325 Liq* G TUBE 7.5 mg Q4H [facility] Administration Albuterol 2.5 mg 06/13/16 15:52 Ventolin 2.5 Mg/3 Ml Neb.Annie* INH Q4H PRN SOB/WHEEZING Benzonatate 100 mg 06/13/16 15:59 Tessalon Cap* PO BID PRN COUGH Guaifenesin/Dextromethorphan 10 ml 06/13/16 15:59 06/16/16 08:36 Robitussin Dm* PO 10 ml Q6H PRN Administration COUGH Heparin Sodium (Porcine) 5,000 units 06/13/16 22:00 06/16/16 06:03 Heparin Vial(*) SUBCUT Not Given Q8HR [facility] Heparin Sodium (Porcine) 5 ml 06/16/16 09:00 06/16/16 11:13 Heparin Flush Port ([place]) FLUSH 5 ml DAILY [facility] Administration Protocol Clindamycin HCl/Dextrose 600 mg in 50 mls @ 100 mls/hr 06/13/16 16:00 08:37 Cleocin 600 Mg Ivpremix(*) Sdv IV 100 mls/hr Q8H [facility] Administration Sodium Chloride 1,000 mls @ 100 mls/hr 06/16/16 00:00 06/16/16 06:47 Ns 0.9% 1000 Ml* IV 100 mls/hr PER RATE [facility] Administration Ondansetron HCl 4 mg 06/13/16 15:24 06/16/16 03:50 Zofran Inj* IV 4 mg Q4H PRN Administration NAUSEA/VOMITING Prochlorperazine Edisylate 10 mg 06/15/16 17:31 06/15/16 17:42 Compazine Inj* IV 10 mg Q6H PRN Administration NAUSEA Vital Signs Temp Pulse Resp BP Pulse Ox 97.3 F 107 18 134/72 95 06/16/16 07:29 06/16/16 07:29 06/16/16 07:29 06/16/16 07:29 06/16/16 07:29 Gen: Alert, in NAD HEENT: No Scleral Icterus Neck: NL Appearance and Movements; NL JVP, No Thyroid Enlargement, Masses Respiratory: Symmetrical Chest Expansion and Respiratory Effort, Clear to Percussion, mild wheezing BL Cardiovascular: NL Sounds; No Murmurs; No JVD, RRR, No Edema Extremities: No Edema, No Clubbing, Cyanosis Skin: No Rash or Ulcers, No Nodules or Sclerosis Neurological: Alert and Oriented x 3, NL Sensation Laboratory Results - last 24 hr 06/15/16 06/15/16 06/15/16 06:01 06:01 06:01 WBC 12.0 H RBC 3.55 L Hgb 8.2 L Hct 26 L MCV 73 L MCH 23 L MCHC 32 RDW 16 H Plt Count 233 MPV 9 Sodium 130 L Potassium 3.4 L Chloride 93 L Carbon Dioxide 33 H Anion Gap 4 BUN 15 Creatinine 0.35 L Est GFR ( Amer) 240.3 Est GFR (Non-Af Amer) 186.9 BUN/Creatinine Ratio 42.9 H Glucose 111 H Calcium 8.3 L Blood Type O Negative Antibody Screen Negative 06/16/16 05:44 WBC RBC Hgb Hct MCV MCH MCHC RDW Plt Count MPV Sodium 133 Potassium 3.2 L Chloride 96 L Carbon Dioxide 32 Anion Gap 5 BUN 18 Creatinine 0.32 L Est GFR ( Amer) 266.5 Est GFR (Non-Af Amer) 207.2 BUN/Creatinine Ratio 56.3 H Glucose 121 H Calcium 8.6 Blood Type Antibody Screen I/R: 65 y o f with 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 Risks and benefits of procedure were thoroughly explained. Pt is NPO PEG feeds held Has more cough today Pt has oral cavity that is constricted due to malignancy and couldnot open her mouth very wide. Also discussed with her Jan who is her [facility] care proxy
[2016-06-16] MEDS ORDERED: fentaNYL* 50 MCG/ML 2 ML VIAL (100 MCG VIAL) ONE (11:37)
[2016-06-16] MEDS ORDERED: Midazolam* 1 MG/ML 5 ML VIAL (5 MG) ONE (11:37)
[2016-06-16] MEDS ORDERED: Propofol* 10 MG/ML 20 ML BTL IV PUSH ONE (12:08)
[2016-06-16] MEDS ORDERED: Ondansetron INJ* 2 MG/ML VIAL ONE (12:08)
[2016-06-16] MEDS ORDERED: Succinylcholine* 20 MG/ML 10 ML VIAL ONE (12:08)
[2016-06-16] MEDS ORDERED: Dexamethasone IV* 4 MG/ML 1 ML (4 MG) ONE (12:08)
[2016-06-16] MEDS ORDERED: Lidocaine 2% PF* 5 ML VIAL ONE (12:08)
[2016-06-16] MEDS ORDERED: Levalbuterol 0.63MG/3ML NEB INH ONE ×2 (12:23→12:27)
[2016-06-16] MEDS ORDERED: Levalbuterol 1.25MG/0.5ML NEB ONE ×2 (12:23→13:52)
[2016-06-16] MEDS ORDERED: Acetaminophen TAB* 325 MG PO PRN (12:24)
[2016-06-16] MEDS ORDERED: HYDROmorphone* 1 MG/ML 1 ML SYR IV PRN (12:24)
[2016-06-16] MEDS ORDERED: DiMENhydriNATE IV* 50 MG/ML VIAL IV PUSH PRN (12:24)
[2016-06-16] MEDS ORDERED: oxyCODONE TAB* 5 MG TAB PO PRN (12:24)
--- NOTE | 2016-06-16 17:00 | PN ---
Subjective Date of Service: 06/16/16 Interval History: Patient sleeping after bronchoscopy which included general anesthesia. Objective Active Medications: Hydrocodone Bitart/Acetaminophen (Nortab 7.5/325 Liq*) 15 ml G TUBE Q4H [facility] Last Admin: 06/16/16 16:52 Dose: 7.5 mg Albuterol (Ventolin 2.5 Mg/3 Ml Neb.Annie*) 2.5 mg INH Q4H PRN PRN Reason: SOB/WHEEZING Benzonatate (Tessalon Cap*) 100 mg PO BID PRN PRN Reason: COUGH Guaifenesin/Dextromethorphan (Robitussin Dm*) 10 ml PO Q6H PRN PRN Reason: COUGH Last Admin: 06/16/16 16:53 Dose: 10 ml Heparin Sodium (Porcine) (Heparin Vial(*)) 5,000 units SUBCUT Q8HR [facility] Last Admin: 06/16/16 16:54 Dose: 5,000 units Heparin Sodium (Porcine) (Heparin Flush Port (Ivad)) 5 ml FLUSH DAILY [facility] PRN Reason: Protocol Last Admin: 06/16/16 11:13 Dose: 5 ml Clindamycin HCl/Dextrose (Cleocin 600 Mg Ivpremix(*) Sdv) 600 mg in 50 mls @ 100 mls/hr IV Q8H [facility] Last Admin: 06/16/16 16:54 Dose: 100 mls/hr Sodium Chloride (Ns 0.9% 1000 Ml*) 1,000 mls @ 100 mls/hr IV PER RATE [facility] Last Admin: 06/16/16 06:47 Dose: 100 mls/hr Ondansetron HCl (Zofran Inj*) 4 mg IV Q4H PRN PRN Reason: NAUSEA/VOMITING Last Admin: 06/16/16 16:54 Dose: 4 mg Oxycodone HCl (Roxycodone Tab*) 5 mg PO ONCE PRN PRN Reason: PAIN - MODERATE Stop: 06/17/16 12:25 Prochlorperazine Edisylate (Compazine Inj*) 10 mg IV Q6H PRN PRN Reason: NAUSEA Last Admin: 06/15/16 17:42 Dose: 10 mg Vital Signs 06/15/16 06/15/16 06/15/16 17:04 18:25 20:00 Temperature Pulse Rate 95 Respiratory 16 20 20 Rate Blood Pressure (mmHg) O2 Sat by Pulse 97 Oximetry 06/15/16 06/15/16 06/15/16 20:25 21:21 21:34 Temperature Pulse Rate 95 Respiratory 19 16 20 Rate Blood Pressure (mmHg) O2 Sat by Pulse 97 Oximetry 06/15/16 06/16/16 06/16/16 23:34 00:33 00:53 Temperature 97.2 F Pulse Rate 106 Respiratory 18 18 Rate Blood Pressure 125/74 (mmHg) O2 Sat by Pulse 97 Oximetry 06/16/16 06/16/16 06/16/16 02:53 05:32 07:29 Temperature 97.3 F Pulse Rate 107 Respiratory 19 19 18 Rate Blood Pressure 134/72 (mmHg) O2 Sat by Pulse 95 Oximetry 06/16/16 06/16/16 06/16/16 08:00 13:55 14:00 Temperature 100.0 F Pulse Rate 124 130 Respiratory 18 28 24 Rate Blood Pressure 152/96 151/87 (mmHg) O2 Sat by Pulse 94 95 Oximetry 06/16/16 06/16/16 06/16/16 14:05 14:10 14:15 Temperature Pulse Rate 128 126 125 Respiratory 24 25 24 Rate Blood Pressure 145/82 126/71 119/67 (mmHg) O2 Sat by Pulse 97 97 95 Oximetry 06/16/16 06/16/16 06/16/16 14:30 14:45 15:00 Temperature 99.5 F Pulse Rate 124 125 126 Respiratory 24 26 24 Rate Blood Pressure 125/72 125/62 120/71 (mmHg) O2 Sat by Pulse 95 93 93 Oximetry 06/16/16 06/16/16 16:29 16:52 Temperature Pulse Rate 115 Respiratory 18 16 Rate Blood Pressure (mmHg) O2 Sat by Pulse 96 Oximetry Oxygen Devices in Use Now: Nasal Cannula Appearance: Sleeping, eyes closed. Resp reg, sl increased. Looks comfortable. Eyes: No Scleral Icterus Neck: NL Appearance and Movements; NL JVP, No Thyroid Enlargement, Masses Respiratory: Symmetrical Chest Expansion and Respiratory Effort, Clear to Auscultation, Clear to Percussion Cardiovascular: NL Sounds; No Murmurs; No JVD, RRR, No Edema, - Extremities: No Edema, No Clubbing, Cyanosis, - Skin: No Rash or Ulcers, No Nodules or Sclerosis, - Result Diagrams: 06/15/16 06:01 06/16/16 05:44 Additional Lab and Data: Lab Results 06/13/16 06/13/16 06/13/16 Range/Units 12:40 12:40 12:40 WBC 11.4 H (3.5-10.8) 10^3/ul RBC 3.79 L (4.0-5.4) 10^6/ul Hgb 8.8 L (12.0-16.0) g/dl Hct 28 L (35-47) % MCV 73 L (80-97) fL MCH 23 L (27-31) pg MCHC 32 (31-36) g/dl RDW 16 H (10.5-15) % Plt Count 223 (150-450) 10^3/ul MPV 8 (7.4-10.4) um3 Neut % (Auto) 86.8 H (38-83) % Lymph % (Auto) 2.4 L (25-47) % Frontier % (Auto) 8.0 (1-9) % Eos % (Auto) 2.6 (0-6) % Baso % (Auto) 0.2 (0-2) % Absolute Neuts (auto) 9.9 H (1.5-7.7) 10^3/ul Absolute Lymphs (auto) 0.3 L (1.0-4.8) 10^3/ul Absolute Monos (auto) 0.9 H (0-0.8) 10^3/ul Absolute Eos (auto) 0.3 (0-0.6) 10^3/ul Absolute Basos (auto) 0 (0-0.2) 10^3/ul Absolute Nucleated RBC 0.01 10^3/ul Nucleated RBC % 0 Sodium 127 L (133-145) mmol/L Potassium 5.0 (3.5-5.0) mmol/L Chloride 92 L (101-111) mmol/L Carbon Dioxide 31 (22-32) mmol/L Anion Gap 4 (2-11) mmol/L BUN 21 (6-24) mg/dL Creatinine 0.42 L (0.51-0.95) mg/dL Est GFR ( Amer) 194.7 (>60) Est GFR (Non-Af Amer) 151.4 (>60) BUN/Creatinine Ratio 50.0 H (8-20) Glucose 105 H (70-100) mg/dL Lactic Acid 1.1 (0.5-2.0) mmol/L Calcium 8.8 (8.6-10.3) mg/dL Total Bilirubin 0.60 (0.2-1.0) mg/dL AST 70 H (13-39) U/L ALT 29 (7-52) U/L Alkaline Phosphatase 261 H (34-104) U/L Troponin I 0.01 (<0.04) ng/mL C-Reactive Protein 145.93 H (< 5.00) mg/L B-Natriuretic Peptide ( - 100) pg/mL Total Protein 5.5 L (6.4-8.9) g/dL Albumin 2.6 L (3.2-5.2) g/dL Globulin 2.9 (2-4) g/dL Albumin/Globulin Ratio 0.9 L (1-3) 03/14/17 Range/Units 12:40 WBC (3.5-10.8) 10^3/ul RBC (4.0-5.4) 10^6/ul Hgb (12.0-16.0) g/dl Hct (35-47) % MCV (80-97) fL MCH (27-31) pg MCHC (31-36) g/dl RDW (10.5-15) % Plt Count (150-450) 10^3/ul MPV (7.4-10.4) um3 Neut % (Auto) (38-83) % Lymph % (Auto) (25-47) % Frontier % (Auto) (1-9) % Eos % (Auto) (0-6) % Baso % (Auto) (0-2) % Absolute Neuts (auto) (1.5-7.7) 10^3/ul Absolute Lymphs (auto) (1.0-4.8) 10^3/ul Absolute Monos (auto) (0-0.8) 10^3/ul Absolute Eos (auto) (0-0.6) 10^3/ul Absolute Basos (auto) (0-0.2) 10^3/ul Absolute Nucleated RBC 10^3/ul Nucleated RBC % Sodium (133-145) mmol/L Potassium (3.5-5.0) mmol/L Chloride (101-111) mmol/L Carbon Dioxide (22-32) mmol/L Anion Gap (2-11) mmol/L BUN (6-24) mg/dL Creatinine (0.51-0.95) mg/dL Est GFR ( Amer) (>60) Est GFR (Non-Af Amer) (>60) BUN/Creatinine Ratio (8-20) Glucose (70-100) mg/dL Lactic Acid (0.5-2.0) mmol/L Calcium (8.6-10.3) mg/dL Total Bilirubin (0.2-1.0) mg/dL AST (13-39) U/L ALT (7-52) U/L Alkaline Phosphatase (34-104) U/L Troponin I (<0.04) ng/mL C-Reactive Protein (< 5.00) mg/L B-Natriuretic Peptide 68 ( - 100) pg/mL Total Protein (6.4-8.9) g/dL Albumin (3.2-5.2) g/dL Globulin (2-4) g/dL Albumin/Globulin Ratio (1-3) Microbiology and Other Data: Microbiology 06/15/16 09:00 Acid Fast Bacilli Smear - Final Respiratory - Sputum 06/14/16 22:00 Acid Fast Bacilli Smear - Final Respiratory - Sputum 06/14/16 16:50 Acid Fast Bacilli Smear - Final Respiratory - Sputum 06/14/16 16:20 Acid Fast Bacilli Smear - Final Respiratory - Sputum Assess/Plan/Problems-Billing Assessment: - Patient Problems (1) Pneumonia Current Visit: No Status: Acute Code(s): J18.9 - PNEUMONIA, UNSPECIFIED ORGANISM SNOMED Code(s): 276677519 Comment: Cavitating lung lesions. AFB smewar x 3 neg. Continue clindamycin. Bronchoscopy 06/16. Awaiting bx results. Cytology shows malignant squamous cell ca. I will tell and patient 06/17 when patient is alert. (2) Squamous cell cancer of tongue Current Visit: No Status: Acute Code(s): C02.9 - MALIGNANT NEOPLASM OF TONGUE, UNSPECIFIED SNOMED Code(s): 526844537 Comment: S/P chemo/RT. Followed by Dr. Berry, to see [place] medical oncologist. Video swallow study shows she tolerates thin liquids and pureed food. Her cough is bothering her a lot but is continuing therapy. Change liquid hydrocodone/ APAP to q 4 hr scheduled.
[2016-06-17] MEDS: GuaiFENesin DM* 5 ML UDC PO PRN ×3 (00:07→16:57)
[2016-06-17] MEDS: NS 0.9% 1000 ML* 1,000 ML IV SCH ×2 (00:44→13:08)
[2016-06-17] MEDS: Clindamycin 600 MG IVPREMIX(* 600 MG/50 ML SDV IV SCH ×2 (01:01→08:45)
[2016-06-17] MEDS: HYDROcodone/ACET. 7.5/325 LIQ* 15 ML UDC G TUBE SCH ×6 (01:40→21:22)
[2016-06-17] MEDS: Heparin VIAL(*) 5000 UNITS/ML VIAL (FIVE THOUSAND) SUBCUT SCH ×3 (05:25→21:21)
--- NOTE | 2016-06-17 14:03 | PN ---
Progress Note - Progress Note Note: Pulm consult f/u note 06/17/16. Pt seen and examined at bedside. Pt reported improvement in cough and Rt shoulder pain Active Medications Generic Name Dose Route Start Last Admin Trade Name Freq PRN Reason Stop Dose Admin Hydrocodone Bitart/Acetaminophen 15 ml 06/15/16 13:00 06/17/16 13:09 Nortab 7.5/325 Liq* G TUBE 15 ml Q4H [facility] Administration Albuterol 2.5 mg 06/13/16 15:52 Ventolin 2.5 Mg/3 Ml Neb.Annie* INH Q4H PRN SOB/WHEEZING Benzonatate 100 mg 06/13/16 15:59 Tessalon Cap* PO BID PRN COUGH Guaifenesin/Dextromethorphan 10 ml 06/13/16 15:59 06/17/16 09:18 Robitussin Dm* PO 10 ml Q6H PRN Administration COUGH Heparin Sodium (Porcine) 5,000 units 06/13/16 22:00 06/17/16 13:08 Heparin Vial(*) SUBCUT 5,000 units Q8HR [facility] Administration Heparin Sodium (Porcine) 5 ml 06/16/16 09:00 06/17/16 08:46 Heparin Flush Port (Ivad) FLUSH Not Given DAILY [facility] Protocol Clindamycin HCl/Dextrose 600 mg in 50 mls @ 100 mls/hr 06/13/16 16:00 08:45 Cleocin 600 Mg Ivpremix(*) Sdv IV 100 mls/hr Q8H [facility] Administration Sodium Chloride 1,000 mls @ 100 mls/hr 06/16/16 00:00 06/17/16 13:08 Ns 0.9% 1000 Ml* IV 100 mls/hr PER RATE [facility] Administration Ondansetron HCl 4 mg 06/13/16 15:24 06/16/16 16:54 Zofran Inj* IV 4 mg Q4H PRN Administration NAUSEA/VOMITING Prochlorperazine Edisylate 10 mg 06/15/16 17:31 06/15/16 17:42 Compazine Inj* IV 10 mg Q6H PRN Administration NAUSEA Vital Signs Temp Pulse Resp BP Pulse Ox 97.4 F 122 16 147/80 96 06/17/16 08:28 06/17/16 10:28 06/17/16 13:09 06/17/16 08:28 06/17/16 10:28 Gen: Alert, in NAD HEENT: No Scleral Icterus Neck: NL Appearance and Movements; NL JVP, No Thyroid Enlargement, Masses Respiratory: Symmetrical Chest Expansion and Respiratory Effort, Clear to Percussion, mild wheezing BL Cardiovascular: NL Sounds; No Murmurs; No JVD, RRR, No Edema Extremities: No Edema, No Clubbing, Cyanosis Skin: No Rash or Ulcers, No Nodules or Sclerosis Neurological: Alert and Oriented x 3, NL Sensation I/R: 65 y o f with h/o 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 Biopsy of R4 lymph node positive for squamous cell carcinoma Cough is improved today Pt might not be absorbing tube feeds well Might benefit from nutrition eval Dr Berry on case, to start XRT early next week D/w Dr Iglesias Also discussed with her Jan who is her [facility] proxy
[2016-06-17] MEDS: Ondansetron INJ* 2 MG/ML VIAL IV PRN ×2 (15:04→20:10)
[2016-06-17] MEDS ORDERED: NS 0.9% 1000 ML* 1,000 ML IV SCH (15:08)
[2016-06-17] MEDS: metroNIDAZOLE TAB* 250 MG G TUBE SCH (16:58)
[2016-06-17] MEDS: Potassium Chloride LIQUID* 20 MEQ PACKET G TUBE SCH (16:58)
[2016-06-17] MEDS ORDERED: Benzonatate CAP* 100 MG PO ONE (17:19)
--- NOTE | 2016-06-17 17:25 | PN ---
Subjective Date of Service: 06/17/16 Interval History: More diarrhea today, copious. Still bothered by cough. Objective Active Medications: Hydrocodone Bitart/Acetaminophen (Nortab 7.5/325 Liq*) 15 ml G TUBE Q4H [facility] Last Admin: 06/17/16 16:58 Dose: 15 ml Albuterol (Ventolin 2.5 Mg/3 Ml Neb.Annie*) 2.5 mg INH Q4H PRN PRN Reason: SOB/WHEEZING Benzonatate (Tessalon Cap*) 100 mg PO TID [facility] Guaifenesin/Dextromethorphan (Robitussin Dm*) 10 ml PO Q6H PRN PRN Reason: COUGH Last Admin: 06/17/16 16:57 Dose: 10 ml Heparin Sodium (Porcine) (Heparin Vial(*)) 5,000 units SUBCUT Q8HR [facility] Last Admin: 06/17/16 13:08 Dose: 5,000 units Heparin Sodium (Porcine) (Heparin Flush Port (Ivad)) 5 ml FLUSH DAILY [facility] PRN Reason: Protocol Last Admin: 06/17/16 08:46 Dose: Not Given Sodium Chloride (Ns 0.9% 1000 Ml*) 1,000 mls @ 40 mls/hr IV PER RATE [facility] Metronidazole (Flagyl Tab*) 500 mg G TUBE Q8H [facility] Last Admin: 06/17/16 16:58 Dose: 500 mg Ondansetron HCl (Zofran Inj*) 4 mg IV Q4H PRN PRN Reason: NAUSEA/VOMITING Last Admin: 06/17/16 15:04 Dose: 4 mg Potassium Chloride (Klor-Con Liquid*) 20 meq G TUBE DAILY [facility] Last Admin: 06/17/16 16:58 Dose: 20 meq Prochlorperazine Edisylate (Compazine Inj*) 10 mg IV Q6H PRN PRN Reason: NAUSEA Last Admin: 06/15/16 17:42 Dose: 10 mg Vital Signs 06/16/16 06/16/16 06/16/16 19:28 20:00 20:15 Temperature 97.5 F 96.6 F Pulse Rate 107 106 Respiratory 19 Rate Blood Pressure 136/71 136/78 (mmHg) O2 Sat by Pulse 97 97 Oximetry 06/16/16 06/16/16 06/17/16 21:50 22:09 00:04 Temperature 97.5 F Pulse Rate 105 96 Respiratory 16 19 16 Rate Blood Pressure 142/71 (mmHg) O2 Sat by Pulse 96 95 Oximetry 06/17/16 06/17/16 06/17/16 00:09 01:40 03:40 Temperature Pulse Rate Respiratory 18 19 17 Rate Blood Pressure (mmHg) O2 Sat by Pulse Oximetry 06/17/16 06/17/16 06/17/16 05:13 05:21 07:21 Temperature Pulse Rate 97 Respiratory 16 17 16 Rate Blood Pressure 157/79 (mmHg) O2 Sat by Pulse 98 Oximetry 06/17/16 06/17/16 06/17/16 08:00 08:28 09:18 Temperature 97.4 F Pulse Rate 107 Respiratory 16 16 16 Rate Blood Pressure 147/80 (mmHg) O2 Sat by Pulse 97 Oximetry 06/17/16 06/17/16 06/17/16 10:28 10:54 11:38 Temperature 97.7 F Pulse Rate 122 107 Respiratory 18 16 15 Rate Blood Pressure 153/76 (mmHg) O2 Sat by Pulse 96 97 Oximetry 06/17/16 06/17/16 06/17/16 13:09 14:54 16:06 Temperature 97.6 F Pulse Rate 116 Respiratory 16 14 Rate Blood Pressure 146/77 (mmHg) O2 Sat by Pulse 97 Oximetry 06/17/16 16:58 Temperature Pulse Rate Respiratory 16 Rate Blood Pressure (mmHg) O2 Sat by Pulse Oximetry Oxygen Devices in Use Now: Nasal Cannula Appearance: Alert, sitting up in bed. In fair spirits. Looks comfortable. No cough during my visit. Eyes: No Scleral Icterus Neck: NL Appearance and Movements; NL JVP Respiratory: Symmetrical Chest Expansion and Respiratory Effort, Clear to Percussion, - - Mild BL wheezing Cardiovascular: NL Sounds; No Murmurs; No JVD, RRR, No Edema, - Extremities: No Edema, No Clubbing, Cyanosis, - Skin: No Rash or Ulcers, No Nodules or Sclerosis, - Neurological: Alert and Oriented x 3, NL Sensation Result Diagrams: 06/15/16 06:01 06/16/16 05:44 Additional Lab and Data: Lab Results 06/13/16 06/13/16 06/13/16 Range/Units 12:40 12:40 12:40 WBC 11.4 H (3.5-10.8) 10^3/ul RBC 3.79 L (4.0-5.4) 10^6/ul Hgb 8.8 L (12.0-16.0) g/dl Hct 28 L (35-47) % MCV 73 L (80-97) fL MCH 23 L (27-31) pg MCHC 32 (31-36) g/dl RDW 16 H (10.5-15) % Plt Count 223 (150-450) 10^3/ul MPV 8 (7.4-10.4) um3 Neut % (Auto) 86.8 H (38-83) % Lymph % (Auto) 2.4 L (25-47) % Wheeler % (Auto) 8.0 (1-9) % Eos % (Auto) 2.6 (0-6) % Baso % (Auto) 0.2 (0-2) % Absolute Neuts (auto) 9.9 H (1.5-7.7) 10^3/ul Absolute Lymphs (auto) 0.3 L (1.0-4.8) 10^3/ul Absolute Monos (auto) 0.9 H (0-0.8) 10^3/ul Absolute Eos (auto) 0.3 (0-0.6) 10^3/ul Absolute Basos (auto) 0 (0-0.2) 10^3/ul Absolute Nucleated RBC 0.01 10^3/ul Nucleated RBC % 0 Sodium 127 L (133-145) mmol/L Potassium 5.0 (3.5-5.0) mmol/L Chloride 92 L (101-111) mmol/L Carbon Dioxide 31 (22-32) mmol/L Anion Gap 4 (2-11) mmol/L BUN 21 (6-24) mg/dL Creatinine 0.42 L (0.51-0.95) mg/dL Est GFR ( Amer) 194.7 (>60) Est GFR (Non-Af Amer) 151.4 (>60) BUN/Creatinine Ratio 50.0 H (8-20) Glucose 105 H (70-100) mg/dL Lactic Acid 1.1 (0.5-2.0) mmol/L Calcium 8.8 (8.6-10.3) mg/dL Total Bilirubin 0.60 (0.2-1.0) mg/dL AST 70 H (13-39) U/L ALT 29 (7-52) U/L Alkaline Phosphatase 261 H (34-104) U/L Troponin I 0.01 (<0.04) ng/mL C-Reactive Protein 145.93 H (< 5.00) mg/L B-Natriuretic Peptide ( - 100) pg/mL Total Protein 5.5 L (6.4-8.9) g/dL Albumin 2.6 L (3.2-5.2) g/dL Globulin 2.9 (2-4) g/dL Albumin/Globulin Ratio 0.9 L (1-3) 06/13/ Range/Units 12:40 WBC (3.5-10.8) 10^3/ul RBC (4.0-5.4) 10^6/ul Hgb (12.0-16.0) g/dl Hct (35-47) % MCV (80-97) fL MCH (27-31) pg MCHC (31-36) g/dl RDW (10.5-15) % Plt Count (150-450) 10^3/ul MPV (7.4-10.4) um3 Neut % (Auto) (38-83) % Lymph % (Auto) (25-47) % Wheeler % (Auto) (1-9) % Eos % (Auto) (0-6) % Baso % (Auto) (0-2) % Absolute Neuts (auto) (1.5-7.7) 10^3/ul Absolute Lymphs (auto) (1.0-4.8) 10^3/ul Absolute Monos (auto) (0-0.8) 10^3/ul Absolute Eos (auto) (0-0.6) 10^3/ul Absolute Basos (auto) (0-0.2) 10^3/ul Absolute Nucleated RBC 10^3/ul Nucleated RBC % Sodium (133-145) mmol/L Potassium (3.5-5.0) mmol/L Chloride (101-111) mmol/L Carbon Dioxide (22-32) mmol/L Anion Gap (2-11) mmol/L BUN (6-24) mg/dL Creatinine (0.51-0.95) mg/dL Est GFR ( Amer) (>60) Est GFR (Non-Af Amer) (>60) BUN/Creatinine Ratio (8-20) Glucose (70-100) mg/dL Lactic Acid (0.5-2.0) mmol/L Calcium (8.6-10.3) mg/dL Total Bilirubin (0.2-1.0) mg/dL AST (13-39) U/L ALT (7-52) U/L Alkaline Phosphatase (34-104) U/L Troponin I (<0.04) ng/mL C-Reactive Protein (< 5.00) mg/L B-Natriuretic Peptide 68 ( - 100) pg/mL Total Protein (6.4-8.9) g/dL Albumin (3.2-5.2) g/dL Globulin (2-4) g/dL Albumin/Globulin Ratio (1-3) Microbiology and Other Data: Microbiology 06/15/16 09:00 Acid Fast Bacilli Smear - Final Respiratory - Sputum 06/14/16 22:00 Acid Fast Bacilli Smear - Final Respiratory - Sputum 06/14/16 16:50 Acid Fast Bacilli Smear - Final Respiratory - Sputum 06/14/16 16:20 Acid Fast Bacilli Smear - Final Respiratory - Sputum Assess/Plan/Problems-Billing Assessment: - Patient Problems (1) Pneumonia Current Visit: No Status: Acute Code(s): J18.9 - PNEUMONIA, UNSPECIFIED ORGANISM SNOMED Code(s): 406628640 Comment: Cavitating lung lesions. AFB smewar x 3 neg. Stop clindamycin due to diarrhea and start enteral metronidazole. When diarrha under control can consider a different antibiotic. Bronchoscopy 06/16. Cytology shows malignant squamous cell ca. told and patient 06/17. I spoke with Dr. Berry on 06/16 and he will talk to pt about palliative RT. (2) Squamous cell cancer of tongue Current Visit: No Status: Acute Code(s): C02.9 - MALIGNANT NEOPLASM OF TONGUE, UNSPECIFIED SNOMED Code(s): 468885381 Comment: S/P chemo/RT. Followed by Dr. Berry, to see [place] medical oncologist. Video swallow study shows she tolerates thin liquids and pureed food. Her cough is bothering her a lot but is continuing therapy. Change liquid hydrocodone/ APAP to q 4 hr scheduled. Change benzonatate to schduled 100 mg tid.
[2016-06-17] MEDS: Benzonatate CAP* 100 MG PO SCH (21:22)
[2016-06-18] MEDS: HYDROcodone/ACET. 7.5/325 LIQ* 15 ML UDC G TUBE SCH ×6 (00:36→20:34)
[2016-06-18] MEDS: metroNIDAZOLE TAB* 250 MG G TUBE SCH ×2 (00:36→09:13)
[2016-06-18] MEDS: GuaiFENesin DM* 5 ML UDC PO PRN ×3 (05:42→20:35)
[2016-06-18] MEDS: Heparin VIAL(*) 5000 UNITS/ML VIAL (FIVE THOUSAND) SUBCUT SCH ×3 (05:42→20:35)
[2016-06-18] MEDS: Ondansetron INJ* 2 MG/ML VIAL IV PRN (06:12)
[2016-06-18] MEDS: Benzonatate CAP* 100 MG PO SCH ×3 (09:13→20:36)
[2016-06-18] MEDS: Al Hydrox/Mg Hydrox/Simet LIQ* 30 ML UDC PO PRN ×3 (09:18→20:35)
[2016-06-18] MEDS: Potassium Chloride LIQUID* 20 MEQ PACKET G TUBE SCH (09:18)
[2016-06-18] MEDS ORDERED: Vancomycin CAP* 125 MG CAP SCH (13:00)
[2016-06-18] MEDS: VANCOMYCIN 50 MG/ML G TUBE SCH ×3 (14:26→20:35)
--- NOTE | 2016-06-18 14:44 | PN ---
Subjective Date of Service: 06/18/16 Interval History: Only 2 BM's so far today. Patient overall feels better. Still has productive cough. Needs help to go to the [facility]. Objective Active Medications: Hydrocodone Bitart/Acetaminophen (Nortab 7.5/325 Liq*) 15 ml G TUBE Q4H [facility] Last Admin: 06/18/16 12:49 Dose: 15 ml Al Hydrox/Mg Hydrox/Simethicone (Maalox Plus*) 30 ml PO Q4H PRN PRN Reason: DYSPEPSIA Last Admin: 06/18/16 09:18 Dose: 30 ml Albuterol (Ventolin 2.5 Mg/3 Ml Neb.Annie*) 2.5 mg INH Q4H PRN PRN Reason: SOB/WHEEZING Benzonatate (Tessalon Cap*) 100 mg PO TID [facility] Last Admin: 06/18/16 12:41 Dose: Not Given Guaifenesin/Dextromethorphan (Robitussin Dm*) 10 ml PO Q6H PRN PRN Reason: COUGH Last Admin: 06/18/16 14:28 Dose: 10 ml Heparin Sodium (Porcine) (Heparin Vial(*)) 5,000 units SUBCUT Q8HR [facility] Last Admin: 06/18/16 12:49 Dose: 5,000 units Levofloxacin (Levofloxacin Annie*) 500 mg PO DAILY [facility] Potassium Chloride (Klor-Con Liquid*) 20 meq G TUBE DAILY [facility] Last Admin: 06/18/16 09:18 Dose: 20 meq Vancomycin HCl (Vancomycin Solution*) 125 mg G TUBE QID [facility] Last Admin: 06/18/16 14:26 Dose: 125 mg Vital Signs 06/17/16 06/17/16 06/17/16 14:54 16:06 16:58 Temperature 97.6 F Pulse Rate 116 Respiratory 14 16 Rate Blood Pressure 146/77 (mmHg) O2 Sat by Pulse 97 Oximetry 06/17/16 06/17/16 06/17/16 18:58 20:00 21:22 Temperature Pulse Rate Respiratory 19 17 18 Rate Blood Pressure (mmHg) O2 Sat by Pulse Oximetry 06/17/16 06/17/16 06/18/16 23:22 23:59 00:36 Temperature 97.9 F Pulse Rate 115 Respiratory 18 16 16 Rate Blood Pressure 178/80 (mmHg) O2 Sat by Pulse 96 Oximetry 06/18/16 06/18/16 06/18/16 02:36 05:42 07:42 Temperature 99.4 F Pulse Rate 120 Respiratory 17 17 16 Rate Blood Pressure 157/84 (mmHg) O2 Sat by Pulse 95 Oximetry 06/18/16 06/18/16 06/18/16 08:00 09:18 11:18 Temperature Pulse Rate Respiratory 16 16 16 Rate Blood Pressure (mmHg) O2 Sat by Pulse Oximetry 06/18/16 06/18/16 12:49 14:30 Temperature Pulse Rate Respiratory 16 16 Rate Blood Pressure (mmHg) O2 Sat by Pulse Oximetry Oxygen Devices in Use Now: Nasal Cannula Appearance: Alert, partly up in bed. In fair spirits. Looks comfortable. Eyes: No Scleral Icterus Respiratory: Symmetrical Chest Expansion and Respiratory Effort, Clear to Auscultation, Clear to Percussion Cardiovascular: NL Sounds; No Murmurs; No JVD, RRR Extremities: No Edema, No Clubbing, Cyanosis, - Skin: No Rash or Ulcers, No Nodules or Sclerosis, - Neurological: Alert and Oriented x 3, NL Sensation Result Diagrams: 06/15/16 06:01 06/16/16 05:44 Additional Lab and Data: Lab Results 06/13/16 06/13/16 06/13/16 Range/Units 12:40 12:40 12:40 WBC 11.4 H (3.5-10.8) 10^3/ul RBC 3.79 L (4.0-5.4) 10^6/ul Hgb 8.8 L (12.0-16.0) g/dl Hct 28 L (35-47) % MCV 73 L (80-97) fL MCH 23 L (27-31) pg MCHC 32 (31-36) g/dl RDW 16 H (10.5-15) % Plt Count 223 (150-450) 10^3/ul MPV 8 (7.4-10.4) um3 Neut % (Auto) 86.8 H (38-83) % Lymph % (Auto) 2.4 L (25-47) % Gray % (Auto) 8.0 (1-9) % Eos % (Auto) 2.6 (0-6) % Baso % (Auto) 0.2 (0-2) % Absolute Neuts (auto) 9.9 H (1.5-7.7) 10^3/ul Absolute Lymphs (auto) 0.3 L (1.0-4.8) 10^3/ul Absolute Monos (auto) 0.9 H (0-0.8) 10^3/ul Absolute Eos (auto) 0.3 (0-0.6) 10^3/ul Absolute Basos (auto) 0 (0-0.2) 10^3/ul Absolute Nucleated RBC 0.01 10^3/ul Nucleated RBC % 0 Sodium 127 L (133-145) mmol/L Potassium 5.0 (3.5-5.0) mmol/L Chloride 92 L (101-111) mmol/L Carbon Dioxide 31 (22-32) mmol/L Anion Gap 4 (2-11) mmol/L BUN 21 (6-24) mg/dL Creatinine 0.42 L (0.51-0.95) mg/dL Est GFR ( Amer) 194.7 (>60) Est GFR (Non-Af Amer) 151.4 (>60) BUN/Creatinine Ratio 50.0 H (8-20) Glucose 105 H (70-100) mg/dL Lactic Acid 1.1 (0.5-2.0) mmol/L Calcium 8.8 (8.6-10.3) mg/dL Total Bilirubin 0.60 (0.2-1.0) mg/dL AST 70 H (13-39) U/L ALT 29 (7-52) U/L Alkaline Phosphatase 261 H (34-104) U/L Troponin I 0.01 (<0.04) ng/mL C-Reactive Protein 145.93 H (< 5.00) mg/L B-Natriuretic Peptide ( - 100) pg/mL Total Protein 5.5 L (6.4-8.9) g/dL Albumin 2.6 L (3.2-5.2) g/dL Globulin 2.9 (2-4) g/dL Albumin/Globulin Ratio 0.9 L (1-3) 06/13/16 Range/Units 12:40 WBC (3.5-10.8) 10^3/ul RBC (4.0-5.4) 10^6/ul Hgb (12.0-16.0) g/dl Hct (35-47) % MCV (80-97) fL MCH (27-31) pg MCHC (31-36) g/dl RDW (10.5-15) % Plt Count (150-450) 10^3/ul MPV (7.4-10.4) um3 Neut % (Auto) (38-83) % Lymph % (Auto) (25-47) % Gray % (Auto) (1-9) % Eos % (Auto) (0-6) % Baso % (Auto) (0-2) % Absolute Neuts (auto) (1.5-7.7) 10^3/ul Absolute Lymphs (auto) (1.0-4.8) 10^3/ul Absolute Monos (auto) (0-0.8) 10^3/ul Absolute Eos (auto) (0-0.6) 10^3/ul Absolute Basos (auto) (0-0.2) 10^3/ul Absolute Nucleated RBC 10^3/ul Nucleated RBC % Sodium (133-145) mmol/L Potassium (3.5-5.0) mmol/L Chloride (101-111) mmol/L Carbon Dioxide (22-32) mmol/L Anion Gap (2-11) mmol/L BUN (6-24) mg/dL Creatinine (0.51-0.95) mg/dL Est GFR ( Amer) (>60) Est GFR (Non-Af Amer) (>60) BUN/Creatinine Ratio (8-20) Glucose (70-100) mg/dL Lactic Acid (0.5-2.0) mmol/L Calcium (8.6-10.3) mg/dL Total Bilirubin (0.2-1.0) mg/dL AST (13-39) U/L ALT (7-52) U/L Alkaline Phosphatase (34-104) U/L Troponin I (<0.04) ng/mL C-Reactive Protein (< 5.00) mg/L B-Natriuretic Peptide 68 ( - 100) pg/mL Total Protein (6.4-8.9) g/dL Albumin (3.2-5.2) g/dL Globulin (2-4) g/dL Albumin/Globulin Ratio (1-3) Microbiology and Other Data: Microbiology 06/15/16 09:00 Acid Fast Bacilli Smear - Final Respiratory - Sputum 06/14/16 22:00 Acid Fast Bacilli Smear - Final Respiratory - Sputum 06/14/16 16:50 Acid Fast Bacilli Smear - Final Respiratory - Sputum 06/14/16 16:20 Acid Fast Bacilli Smear - Final Respiratory - Sputum Assess/Plan/Problems-Billing Assessment: - Patient Problems (1) Pneumonia Current Visit: No Status: Acute Code(s): J18.9 - PNEUMONIA, UNSPECIFIED ORGANISM SNOMED Code(s): 234382796 Comment: Cavitating lung lesions. AFB smewar x 3 neg. Clindamycin stopped due to diarrhea. Presumptive dx C> diff treated with enteral vancomyin. Start enteal levofloxacin for probable post-obtructive pneumonia. Bronchoscopy done , cytology shows malignant squamous cell ca. told and patient 06/17. I spoke with Dr. Berry on 06/16 and he will talk to pt about palliative RT on 06/19. (2) Squamous cell cancer of tongue Current Visit: No Status: Acute Code(s): C02.9 - MALIGNANT NEOPLASM OF TONGUE, UNSPECIFIED SNOMED Code(s): 486485134 Comment: S/P chemo/RT. Followed by Dr. Berry, to see [place] medical oncologist. Video swallow study shows she tolerates thin liquids and pureed food. Her cough is bothering her a lot but is continuing therapy. Continue liquid hydrocodone/ APAP to q 4 hr scheduled, benzonatate 100 mg tid.
--- NOTE | 2016-06-18 16:02 | PN ---
Progress Note - Progress Note Note: Correction to PE: patient has 1+ edema BL.
[2016-06-18] MEDS: Levofloxacin TAB* 500 MG PO SCH (16:35)
[2016-06-19] MEDS: HYDROcodone/ACET. 7.5/325 LIQ* 15 ML UDC G TUBE SCH ×6 (01:09→21:21)
[2016-06-19] MEDS: GuaiFENesin DM* 5 ML UDC PO PRN ×2 (02:53→23:49)
[2016-06-19] MEDS: Al Hydrox/Mg Hydrox/Simet LIQ* 30 ML UDC PO PRN (02:53)
--- NOTE | 2016-06-19 03:40 | PRO ---
BRONCHOSCOPY REPORT: DATE OF PROCEDURE: 06/16/16 PROCEDURE PERFORMED: Bronchoscopy with endobronchial ultrasound-guided fine needle aspiration of mediastinal nodes. ANESTHESIA: General anesthesia. ANESTHESIOLOGIST: Dr. Alissa Torres. Refer to anesthesiologist's note for further details. DESCRIPTION OF PROCEDURE: Informed consent was obtained from the patient prior to the procedure after all the risks and benefits were thoroughly explained. The patient with history of squamous cell carcinoma of tongue with cavitary lesion in the lungs bilaterally and necrotic appearing lymph nodes. EBUS bronchoscopy was scheduled for evaluation of lymphadenopathy. The patient was positioned supine on the operating room table. Appropriate time-out was agreed on by attending staff prior to the procedure. Pita Hugger and Venodynes were utilized. A flexible pentax bronchoscope was utilized for airway inspection. ET tube was position was confirmed to be 1 cm about the level of kyra. ET tube was pulled backwards by 1.5 cm. Bronchoscope was then advanced further and airways were inspected. Thick secretions were noted and were suctioned out. Of note, the patient was supposed to be n.p.o.; however, had gastric secretions resembling tube feeds at that time of intubation, which were suctioned out. Bronchoscope was then withdrawn and EBUS bronchoscope was inserted. Station R4 lymph node was significantly enlarged and was accessed with 2 passes. Rapid on- site evaluation revealed adequate lymphatic tissue and malignant cells were noted. Minimal bleeding was noted. The patient tolerated the procedure well and was extubated and was seen in the recovery area in optimal condition. Rest of specimen was placed in [facility]. [id number] #: [id number] MTDD
[2016-06-19] MEDS: Heparin VIAL(*) 5000 UNITS/ML VIAL (FIVE THOUSAND) SUBCUT SCH ×3 (04:58→21:21)
[2016-06-19 06:27] LABS: Comments Flag Yes; Hematocrit 29 % (35-47); Hemoglobin 9.3 g/dl (12.0-16.0); Mean Corpuscular HGB Conc 33 g/dl (31-36); Mean Corpuscular Hemoglobin 24 pg (27-31); Mean Platelet Volume 8 um3 (7.4-10.4); Red Blood Count 3.88 10^6/ul (4.0-5.4); Red Cell Distribution Width 17 % (10.5-15)
[2016-06-19 06:28] LABS: Add Diff/Slide Review? Slide Review Added; Mean Corpuscular Volume 74 fL (80-97)
[2016-06-19 06:43] LABS: EGFR African American 240.3 (>60); EGFR Non-African American 186.9 (>60)
[2016-06-19] MEDS ORDERED: Potassium Chloride LIQUID* 20 MEQ PACKET G TUBE ONE (08:46)
[2016-06-19] MEDS: Benzonatate CAP* 100 MG PO SCH (08:55)
[2016-06-19] MEDS: Levofloxacin TAB* 500 MG PO SCH (10:08)
[2016-06-19] MEDS: Potassium Chloride LIQUID* 20 MEQ PACKET G TUBE SCH (10:08)
[2016-06-19] MEDS: VANCOMYCIN 50 MG/ML G TUBE SCH ×4 (10:08→21:21)
[2016-06-19] MEDS: Ondansetron ODT TAB* 4 MG SL PRN (10:09)
--- NOTE | 2016-06-19 10:39 | PN ---
Subjective Date of Service: 06/19/16 Interval History: Seen and examined Nursing notes that was angry this morning and yelling and left floor prior to being seen by Dr. Berry Pt reports pain in mouth. Nausea this AM and vomited breakfast Objective Active Medications: Hydrocodone Bitart/Acetaminophen (Nortab 7.5/325 Liq*) 15 ml G TUBE Q4H [facility] Last Admin: 06/19/16 10:10 Dose: 15 ml Al Hydrox/Mg Hydrox/Simethicone (Maalox Plus*) 30 ml PO Q4H PRN PRN Reason: DYSPEPSIA Last Admin: 06/19/16 02:53 Dose: 30 ml Albuterol (Ventolin 2.5 Mg/3 Ml Neb.Annie*) 2.5 mg INH Q4H PRN PRN Reason: SOB/WHEEZING Guaifenesin/Dextromethorphan (Robitussin Dm*) 10 ml PO Q6H PRN PRN Reason: COUGH Last Admin: 06/19/16 02:53 Dose: 10 ml Heparin Sodium (Porcine) (Heparin Vial(*)) 5,000 units SUBCUT Q8HR [facility] Last Admin: 06/19/16 04:58 Dose: 5,000 units Vancomycin HCl 1,000 mg/ (Sodium Chloride) 250 mls @ 166.667 mls/hr IVPB ONCE ONE PRN Reason: Protocol Stop: 06/19/16 12:29 Labetalol HCl (Trandate Tab*) 300 mg PO BID [facility] Levofloxacin (Levaquin Tab*) 500 mg PO DAILY [facility] Last Admin: 06/19/16 10:08 Dose: 500 mg Multi-Ingredient Mouthwash/Gargle (Magic Mouth Was-Esvin/Maal/Lido*) 5 ml SWISH SPIT QID [facility] Ondansetron HCl (Zofran Odt Tab*) 4 mg SL Q6H PRN PRN Reason: NAUSEA/VOMITING Last Admin: 06/19/16 10:09 Dose: 4 mg Potassium Chloride (Klor-Con Liquid*) 20 meq G TUBE DAILY [facility] Last Admin: 06/19/16 10:08 Dose: 20 meq Vancomycin HCl (Vancomycin Solution*) 125 mg G TUBE QID [facility] Last Admin: 06/19/16 10:08 Dose: 125 mg Vital Signs 06/18/16 06/18/16 06/18/16 11:18 12:49 14:30 Temperature Pulse Rate Respiratory 16 16 16 Rate Blood Pressure (mmHg) O2 Sat by Pulse Oximetry 06/18/16 06/18/16 06/18/16 16:35 16:36 18:17 Temperature 98.8 F Pulse Rate 120 Respiratory 16 14 Rate Blood Pressure 155/84 (mmHg) O2 Sat by Pulse 95 Oximetry 06/18/16 06/18/16 06/18/16 20:00 20:17 20:34 Temperature Pulse Rate 117 Respiratory 16 16 18 Rate Blood Pressure (mmHg) O2 Sat by Pulse 95 Oximetry 06/18/16 06/18/16 06/18/16 22:34 23:34 23:46 Temperature 98.2 F Pulse Rate 119 120 Respiratory 16 16 20 Rate Blood Pressure 182/93 165/81 (mmHg) O2 Sat by Pulse 93 93 Oximetry 06/19/16 06/19/16 06/19/16 01:09 02:52 04:57 Temperature Pulse Rate Respiratory 18 18 16 Rate Blood Pressure (mmHg) O2 Sat by Pulse Oximetry 06/19/16 06/19/16 07:55 10:10 Temperature 98.3 F Pulse Rate 119 Respiratory 15 19 Rate Blood Pressure 165/82 (mmHg) O2 Sat by Pulse 93 Oximetry Oxygen Devices in Use Now: Nasal Cannula Appearance: sitting up, talking, NAD Eyes: No Scleral Icterus Ears/Nose/Mouth/Throat: - - dry mouth, dental changes, no thrush Respiratory: Symmetrical Chest Expansion and Respiratory Effort, - - rhonchi throughout Cardiovascular: RRR Abdominal: NL Sounds; No Tenderness; No Distention, No Hepatosplenomegaly, - - peg c/d/i Extremities: No Edema Skin: No Rash or Ulcers Neurological: Alert and Oriented x 3 Result Diagrams: 06/19/16 05:59 06/19/16 05:59 Additional Lab and Data: Lab Results 06/13/16 06/13/16 06/13/16 Range/Units 12:40 12:40 12:40 WBC 11.4 H (3.5-10.8) 10^3/ul RBC 3.79 L (4.0-5.4) 10^6/ul Hgb 8.8 L (12.0-16.0) g/dl Hct 28 L (35-47) % MCV 73 L (80-97) fL MCH 23 L (27-31) pg MCHC 32 (31-36) g/dl RDW 16 H (10.5-15) % Plt Count 223 (150-450) 10^3/ul MPV 8 (7.4-10.4) um3 Neut % (Auto) 86.8 H (38-83) % Lymph % (Auto) 2.4 L (25-47) % [place] % (Auto) 8.0 (1-9) % Eos % (Auto) 2.6 (0-6) % Baso % (Auto) 0.2 (0-2) % Absolute Neuts (auto) 9.9 H (1.5-7.7) 10^3/ul Absolute Lymphs (auto) 0.3 L (1.0-4.8) 10^3/ul Absolute Monos (auto) 0.9 H (0-0.8) 10^3/ul Absolute Eos (auto) 0.3 (0-0.6) 10^3/ul Absolute Basos (auto) 0 (0-0.2) 10^3/ul Absolute Nucleated RBC 0.01 10^3/ul Nucleated RBC % 0 Sodium 127 L (133-145) mmol/L Potassium 5.0 (3.5-5.0) mmol/L Chloride 92 L (101-111) mmol/L Carbon Dioxide 31 (22-32) mmol/L Anion Gap 4 (2-11) mmol/L BUN 21 (6-24) mg/dL Creatinine 0.42 L (0.51-0.95) mg/dL Est GFR ( Amer) 194.7 (>60) Est GFR (Non-Af Amer) 151.4 (>60) BUN/Creatinine Ratio 50.0 H (8-20) Glucose 105 H (70-100) mg/dL Lactic Acid 1.1 (0.5-2.0) mmol/L Calcium 8.8 (8.6-10.3) mg/dL Total Bilirubin 0.60 (0.2-1.0) mg/dL AST 70 H (13-39) U/L ALT 29 (7-52) U/L Alkaline Phosphatase 261 H (34-104) U/L Troponin I 0.01 (<0.04) ng/mL C-Reactive Protein 145.93 H (< 5.00) mg/L B-Natriuretic Peptide ( - 100) pg/mL Total Protein 5.5 L (6.4-8.9) g/dL Albumin 2.6 L (3.2-5.2) g/dL Globulin 2.9 (2-4) g/dL Albumin/Globulin Ratio 0.9 L (1-3) // Range/Units 12:40 WBC (3.5-10.8) 10^3/ul RBC (4.0-5.4) 10^6/ul Hgb (12.0-16.0) g/dl Hct (35-47) % MCV (80-97) fL MCH (27-31) pg MCHC (31-36) g/dl RDW (10.5-15) % Plt Count (150-450) 10^3/ul MPV (7.4-10.4) um3 Neut % (Auto) (38-83) % Lymph % (Auto) (25-47) % [place] % (Auto) (1-9) % Eos % (Auto) (0-6) % Baso % (Auto) (0-2) % Absolute Neuts (auto) (1.5-7.7) 10^3/ul Absolute Lymphs (auto) (1.0-4.8) 10^3/ul Absolute Monos (auto) (0-0.8) 10^3/ul Absolute Eos (auto) (0-0.6) 10^3/ul Absolute Basos (auto) (0-0.2) 10^3/ul Absolute Nucleated RBC 10^3/ul Nucleated RBC % Sodium (133-145) mmol/L Potassium (3.5-5.0) mmol/L Chloride (101-111) mmol/L Carbon Dioxide (22-32) mmol/L Anion Gap (2-11) mmol/L BUN (6-24) mg/dL Creatinine (0.51-0.95) mg/dL Est GFR ( Amer) (>60) Est GFR (Non-Af Amer) (>60) BUN/Creatinine Ratio (8-20) Glucose (70-100) mg/dL Lactic Acid (0.5-2.0) mmol/L Calcium (8.6-10.3) mg/dL Total Bilirubin (0.2-1.0) mg/dL AST (13-39) U/L ALT (7-52) U/L Alkaline Phosphatase (34-104) U/L Troponin I (<0.04) ng/mL C-Reactive Protein (< 5.00) mg/L B-Natriuretic Peptide 68 ( - 100) pg/mL Total Protein (6.4-8.9) g/dL Albumin (3.2-5.2) g/dL Globulin (2-4) g/dL Albumin/Globulin Ratio (1-3) Microbiology and Other Data: Microbiology 06/15/16 09:00 Acid Fast Bacilli Smear - Final Respiratory - Sputum 06/14/16 22:00 Acid Fast Bacilli Smear - Final Respiratory - Sputum 06/14/16 16:50 Acid Fast Bacilli Smear - Final Respiratory - Sputum 06/14/16 16:20 Acid Fast Bacilli Smear - Final Respiratory - Sputum Assess/Plan/Problems-Billing Assessment: 65 yo F h/o SCC tongue s/p chemo/RT, found with necrotic masses in lung with LN biopsy positive for SCC with concern for additional PNA - Patient Problems (1) C. difficile colitis Comment: Treating empirically with PO vanco s/p course of clinda Diarrhea persists but is improving (2) Hypernatremia Comment: Monitor Taking adequate PO according to I/O (3) Tachycardia Comment: Suspect rebound Restart labetalol (4) Pneumonia Comment: Cavitating lung lesions. AFB smewar x 3 neg. Clindamycin stopped due to diarrhea. c/w PO levaquin start IV vancomycin EBUS 06/[address] biopsy -cytology shows malignant squamous cell ca. told and patient 06/17. Dr. Berry to eval now and likely start RT today (5) Squamous cell cancer of tongue Comment: S/P chemo/RT. Followed by Dr. Berry, to see [place] medical oncologist. Video swallow study shows she tolerates thin liquids and pureed food. Continue liquid hydrocodone/APAP to q 4 hr scheduled Not using tessalon. Discontinued (6) DVT prophylaxis Comment: Heparin sub q
[2016-06-19] MEDS ORDERED: Vancomycin(*) 1,000 MG in NS 0.9% 250 ML* 250 ML IVPB ONE ×2 (11:00→18:00)
[2016-06-19] MEDS ORDERED: Vancomycin per Pharmacy* NOTE FOLLOW UP PRN (12:28)
--- NOTE | 2016-06-19 12:35 | RAD ---
HISTORY: CT planning for radiation therapy mapping COMPARISONS: CT of the chest dated June 06, 2016 TECHNIQUE: Limited axial CT images were obtained of the chest for the purposes of radiation treatment planning. FINDINGS: Again noted is multifocal consolidation of the lungs bilaterally with multiple cavitary nodules throughout both lungs with mediastinal lymphadenopathy. There is a trace left pleural effusion. IMPRESSION: LIMITED CT FOR THE PURPOSES OF RADIATION TREATMENT PLANNING
[2016-06-19 13:09] LABS: M tuberculosis by Quantiferon Indeterminate (Negative); TB Ag minus Nil Result -0.02 IU/mL
[2016-06-19] MEDS: Magic Mouth Was-BEN/MAAL/LIDO SWISH SPIT SCH ×3 (13:53→21:41)
[2016-06-19] MEDS: Labetalol TAB* 300 MG PO SCH ×2 (13:54→21:20)
[2016-06-20] MEDS ORDERED: Vancomycin(*) 1,000 MG in NS 0.9% 250 ML* 250 ML IVPB SCH (02:00)
[2016-06-20] MEDS: HYDROcodone/ACET. 7.5/325 LIQ* 15 ML UDC G TUBE SCH ×6 (03:48→22:35)
[2016-06-20] MEDS: Ondansetron ODT TAB* 4 MG SL PRN ×3 (03:59→22:34)
[2016-06-20] MEDS ORDERED: NS 0.9% 250 ML* 250 ML ONE (05:22)
[2016-06-20] MEDS: GuaiFENesin DM* 5 ML UDC PO PRN ×2 (05:28→14:17)
[2016-06-20] MEDS: Vancomycin(*) 1,000 MG in NS 0.9% 250 ML* 250 ML IVPB SCH ×2 (05:28→17:57)
[2016-06-20] MEDS: Heparin VIAL(*) 5000 UNITS/ML VIAL (FIVE THOUSAND) SUBCUT SCH ×3 (05:28→22:33)
[2016-06-20 06:49] LABS: EGFR African American 200.2 (>60); EGFR Non-African American 155.7 (>60)
[2016-06-20] MEDS: VANCOMYCIN 50 MG/ML G TUBE SCH ×3 (08:27→16:57)
[2016-06-20] MEDS: Potassium Chloride LIQUID* 20 MEQ PACKET G TUBE SCH (08:27)
[2016-06-20] MEDS: Al Hydrox/Mg Hydrox/Simet LIQ* 30 ML UDC PO PRN ×2 (08:27→16:57)
[2016-06-20] MEDS: Magic Mouth Was-BEN/MAAL/LIDO SWISH SPIT SCH ×4 (08:28→22:37)
[2016-06-20] MEDS: Labetalol TAB* 100 MG PO SCH ×2 (08:28→22:36)
[2016-06-20] MEDS: Levofloxacin TAB* 500 MG PO SCH (08:28)
--- NOTE | 2016-06-20 15:52 | PN ---
Subjective Date of Service: 06/20/16 Interval History: +cough, pain in mouth with some relief from magic mouthwash Diarrhea continues, she thinks unchanged Breathing is "sometimes good and other times bad." Currently no SOB Objective Active Medications: Hydrocodone Bitart/Acetaminophen (Nortab 7.5/325 Liq*) 15 ml G TUBE Q4H [facility] Last Admin: 06/20/16 14:18 Dose: 15 ml Al Hydrox/Mg Hydrox/Simethicone (Maalox Plus*) 30 ml PO Q4H PRN PRN Reason: DYSPEPSIA Last Admin: 06/20/16 08:27 Dose: 30 ml Albuterol (Ventolin 2.5 Mg/3 Ml Neb.Annie*) 2.5 mg INH Q4H PRN PRN Reason: SOB/WHEEZING Guaifenesin/Dextromethorphan (Robitussin Dm*) 10 ml PO Q6H PRN PRN Reason: COUGH Last Admin: 06/20/16 14:17 Dose: 10 ml Heparin Sodium (Porcine) (Heparin Vial(*)) 5,000 units SUBCUT Q8HR [facility] Last Admin: 06/20/16 05:28 Dose: 5,000 units Vancomycin HCl 1,000 mg/ (Sodium Chloride) 250 mls @ 166.667 mls/hr IVPB Q12H [facility] Last Admin: 06/20/16 05:28 Dose: 166.667 mls/hr Labetalol HCl (Trandate Tab*) 300 mg PO BID [facility] Last Admin: 06/20/16 08:28 Dose: 300 mg Levofloxacin (Levaquin Tab*) 500 mg PO DAILY [facility] Last Admin: 06/20/16 08:28 Dose: 500 mg Multi-Ingredient Mouthwash/Gargle (Magic Mouth Was-Esvin/Maal/Lido*) 5 ml SWISH SPIT QID [facility] Last Admin: 06/20/16 14:19 Dose: Not Given Ondansetron HCl (Zofran Odt Tab*) 4 mg SL Q6H PRN PRN Reason: NAUSEA/VOMITING Last Admin: 06/20/16 14:19 Dose: 4 mg Pharmacy Consult (Vancomycin Per Pharmacy*) 1 note FOLLOW UP . PRN PRN Reason: PER PROTOCOL Pharmacy Profile Note (Vancomycin Trough Check) 1 note FOLLOW UP 0530 ONE Stop: 06/21/16 05:31 Potassium Chloride (Klor-Con Liquid*) 20 meq G TUBE DAILY [facility] Last Admin: 06/20/16 08:27 Dose: 20 meq Vancomycin HCl (Vancomycin Solution*) 125 mg G TUBE QID [facility] Last Admin: 06/20/16 14:18 Dose: 125 mg Vital Signs 06/19/16 06/19/16 06/19/16 15:54 18:02 20:00 Temperature Pulse Rate Respiratory 17 17 18 Rate Blood Pressure (mmHg) O2 Sat by Pulse Oximetry 06/19/16 06/19/16 06/19/16 20:02 21:21 23:21 Temperature Pulse Rate Respiratory 18 18 18 Rate Blood Pressure (mmHg) O2 Sat by Pulse Oximetry 06/19/16 06/20/16 06/20/16 23:32 03:48 04:00 Temperature 98.1 F Pulse Rate 96 Respiratory 17 19 16 Rate Blood Pressure 111/59 (mmHg) O2 Sat by Pulse 93 Oximetry 06/20/16 06/20/16 06/20/16 08:00 08:05 08:27 Temperature 98.4 F Pulse Rate 102 Respiratory 19 15 18 Rate Blood Pressure 139/64 (mmHg) O2 Sat by Pulse 92 Oximetry 06/20/16 06/20/16 10:27 14:18 Temperature Pulse Rate Respiratory 19 18 Rate Blood Pressure (mmHg) O2 Sat by Pulse Oximetry Oxygen Devices in Use Now: Nasal Cannula Appearance: sitting up in bed, NAD Eyes: No Scleral Icterus, PERRLA Ears/Nose/Mouth/Throat: - - dry MM Neck: NL Appearance and Movements; NL JVP, Trachea Midline Respiratory: Symmetrical Chest Expansion and Respiratory Effort, - - +wheeze and rhonchi throughout Cardiovascular: RRR Abdominal: NL Sounds; No Tenderness; No Distention, No Hepatosplenomegaly Extremities: - - trace LE edema Neurological: Alert and Oriented x 3 Result Diagrams: 06/19/16 05:59 06/20/16 05:30 Additional Lab and Data: Lab Results 06/13/16 06/13/16 06/13/16 Range/Units 12:40 12:40 12:40 WBC 11.4 H (3.5-10.8) 10^3/ul RBC 3.79 L (4.0-5.4) 10^6/ul Hgb 8.8 L (12.0-16.0) g/dl Hct 28 L (35-47) % MCV 73 L (80-97) fL MCH 23 L (27-31) pg MCHC 32 (31-36) g/dl RDW 16 H (10.5-15) % Plt Count 223 (150-450) 10^3/ul MPV 8 (7.4-10.4) um3 Neut % (Auto) 86.8 H (38-83) % Lymph % (Auto) 2.4 L (25-47) % [place] % (Auto) 8.0 (1-9) % Eos % (Auto) 2.6 (0-6) % Baso % (Auto) 0.2 (0-2) % Absolute Neuts (auto) 9.9 H (1.5-7.7) 10^3/ul Absolute Lymphs (auto) 0.3 L (1.0-4.8) 10^3/ul Absolute Monos (auto) 0.9 H (0-0.8) 10^3/ul Absolute Eos (auto) 0.3 (0-0.6) 10^3/ul Absolute Basos (auto) 0 (0-0.2) 10^3/ul Absolute Nucleated RBC 0.01 10^3/ul Nucleated RBC % 0 Sodium 127 L (133-145) mmol/L Potassium 5.0 (3.5-5.0) mmol/L Chloride 92 L (101-111) mmol/L Carbon Dioxide 31 (22-32) mmol/L Anion Gap 4 (2-11) mmol/L BUN 21 (6-24) mg/dL Creatinine 0.42 L (0.51-0.95) mg/dL Est GFR ( Amer) 194.7 (>60) Est GFR (Non-Af Amer) 151.4 (>60) BUN/Creatinine Ratio 50.0 H (8-20) Glucose 105 H (70-100) mg/dL Lactic Acid 1.1 (0.5-2.0) mmol/L Calcium 8.8 (8.6-10.3) mg/dL Total Bilirubin 0.60 (0.2-1.0) mg/dL AST 70 H (13-39) U/L ALT 29 (7-52) U/L Alkaline Phosphatase 261 H (34-104) U/L Troponin I 0.01 (<0.04) ng/mL C-Reactive Protein 145.93 H (< 5.00) mg/L B-Natriuretic Peptide ( - 100) pg/mL Total Protein 5.5 L (6.4-8.9) g/dL Albumin 2.6 L (3.2-5.2) g/dL Globulin 2.9 (2-4) g/dL Albumin/Globulin Ratio 0.9 L (1-3) 06/13/16 Range/Units 12:40 WBC (3.5-10.8) 10^3/ul RBC (4.0-5.4) 10^6/ul Hgb (12.0-16.0) g/dl Hct (35-47) % MCV (80-97) fL MCH (27-31) pg MCHC (31-36) g/dl RDW (10.5-15) % Plt Count (150-450) 10^3/ul MPV (7.4-10.4) um3 Neut % (Auto) (38-83) % Lymph % (Auto) (25-47) % [place] % (Auto) (1-9) % Eos % (Auto) (0-6) % Baso % (Auto) (0-2) % Absolute Neuts (auto) (1.5-7.7) 10^3/ul Absolute Lymphs (auto) (1.0-4.8) 10^3/ul Absolute Monos (auto) (0-0.8) 10^3/ul Absolute Eos (auto) (0-0.6) 10^3/ul Absolute Basos (auto) (0-0.2) 10^3/ul Absolute Nucleated RBC 10^3/ul Nucleated RBC % Sodium (133-145) mmol/L Potassium (3.5-5.0) mmol/L Chloride (101-111) mmol/L Carbon Dioxide (22-32) mmol/L Anion Gap (2-11) mmol/L BUN (6-24) mg/dL Creatinine (0.51-0.95) mg/dL Est GFR ( Amer) (>60) Est GFR (Non-Af Amer) (>60) BUN/Creatinine Ratio (8-20) Glucose (70-100) mg/dL Lactic Acid (0.5-2.0) mmol/L Calcium (8.6-10.3) mg/dL Total Bilirubin (0.2-1.0) mg/dL AST (13-39) U/L ALT (7-52) U/L Alkaline Phosphatase (34-104) U/L Troponin I (<0.04) ng/mL C-Reactive Protein (< 5.00) mg/L B-Natriuretic Peptide 68 ( - 100) pg/mL Total Protein (6.4-8.9) g/dL Albumin (3.2-5.2) g/dL Globulin (2-4) g/dL Albumin/Globulin Ratio (1-3) Microbiology and Other Data: Microbiology 06/15/16 09:00 Acid Fast Bacilli Smear - Final Respiratory - Sputum 06/14/16 22:00 Acid Fast Bacilli Smear - Final Respiratory - Sputum 06/14/16 16:50 Acid Fast Bacilli Smear - Final Respiratory - Sputum 06/14/16 16:20 Acid Fast Bacilli Smear - Final Respiratory - Sputum Assess/Plan/Problems-Billing Assessment: 65 yo F h/o SCC tongue s/p chemo/RT, found with necrotic masses in lung with LN biopsy positive for SCC with concern for additional superimposed PNA - Patient Problems (1) C. difficile colitis Comment: Treating empirically with PO vanco s/p course of clinda Diarrhea persists but is improving (2) Hypernatremia Comment: Monitor - next labs 06/21 Taking adequate PO according to I/O (3) Tachycardia Comment: Suspect rebound Restarted labetalol Volume up over last several days. Consider additional fluid tomorrow if unchanged (4) Pneumonia Comment: Cavitating lung lesions. AFB smewar x 3 neg. Clindamycin stopped due to diarrhea. c/w PO levaquin start IV vancomycin EBUS 06/[address] biopsy -cytology shows malignant squamous cell ca. told and patient 06/17. RT started 06/19 (5) Squamous cell cancer of tongue Comment: S/P chemo/RT. Followed by Dr. Berry, to see [place] medical oncologist. Video swallow study shows she tolerates thin liquids and pureed food. Continue liquid hydrocodone/APAP to q 4 hr scheduled Not using tessalon. Discontinued (6) DVT prophylaxis Comment: Heparin sub q
--- NOTE | 2016-06-20 16:00 | RADMED ---
RADIATION ONCOLOGY INPATIENT CONSULTATION: DATE OF SERVICE: 06/19/16 - ROOM #421 DIAGNOSIS: Oral cavity, squamous cell carcinoma, [id number], AJCC stage IV-A, with subsequent metastatic relapse. PERFORMANCE STATUS: ECOG 2. 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 During recovery from substantial treatment related side effects, she developed cough and shortness of breath, and was found on chest CT from 06/06/16 to have multifocal pulmonary process, clinically consistent with pneumonia, with suggestion of potentially malignant adenopathy and pulmonary masses and postobstructive changes in the lung. She was treated with antibiotics, and on 06/16/16, underwent bronchoscopy with endobronchial ultrasound-guided fine needle aspiration of R4 lymph node confirming metastatic keratinizing squamous cell carcinoma. She also has right shoulder pain and dysfunction, as yet unexplained. She is referred for discussion of palliative thoracic radiation therapy. Referring physician will be Dr. Iglesias. PAST MEDICAL HISTORY: Oral cancer, as in the history of present illness. History of TIA in 2016 and hypertension. FAMILY HISTORY: No history of malignancy reported in her first-degree relatives. SOCIAL HISTORY: She is a former smoker. She is a smoker of cigars, and does not drink a significant amount of alcohol. MEDICATIONS: As per the inpatient record. PHYSICAL EXAMINATION: Vital Signs: Stable as per the inpatient record. General: She is awake, alert, oriented, in no acute distress. Postsurgical and postradiation change in the mouth and neck, healing mucositis, and dry mucous membranes, no sign of local recurrence appreciated. Lungs with scattered coarse rhonchi, symmetric air entry bilaterally. Cardiovascular: S1 and S2, regular. Abdomen: Feeding tube in place. Lymphatic: There is no cervical or supraclavicular adenopathy appreciated. PATHOLOGY AND RADIOLOGY: Reviewed, as in the history of present illness. ASSESSMENT AND PLAN: Deb Lozano is a 65-year-old woman with squamous cell carcinoma of the mouth, status post surgery, followed by concurrent chemoradiation, now with biopsy proven multifocal metastatic recurrence in the lung with bilateral airway obstruction and postobstructive pneumonia. I did review new findings with the patient and with her , as they have already heard to some degree from her other physicians. The majority of our discussion focused on her current situation with progressive recurrent disease in the early timeframe, status post local and regional treatment, with overall concern for prognosis. We discussed options ranging from a purely palliative approach and hospice and palliative treatment option for thoracic radiation therapy to try to reduce airway obstruction and help with her breathing and also to facilitate response to antibiotics by addressing obstructive problems. Also discussed the possibility of systemic therapy, as the mainstay of treatment for metastatic relapse. She is not currently followed in Oncology, and I will work through the oncology nurse navigators for oncology referral to try to establish care at her request, although their overall social situation, travel is difficult, and they have a substantial lack of support and resources. I did answer their questions to the best of my ability. She is interested to proceed with palliative thoracic radiation therapy as discussed, and did sign informed consent. She will undergo CT simulation with the intent of initiating treatment today. It is my intention to deliver 3000 cGy in 10 fractions, with the plan to initiate treatment today 06/19/16 if at all possible. Treatment can continue on an inpatient or outpatient basis, as her medical status indicates. Thank you for giving me the opportunity to participate in the care of this very pleasant patient. CC: Dr. Manuel, his primary care; Dr. Gomez in Oncology* [id number]/[facility] #: [id number] DAO
[2016-06-20] MEDS ORDERED: Morphine INJ* 2 MG/ML 1 ML SYRINGE IV PRN (17:29)
[2016-06-20] MEDS ORDERED: Acetaminophen TAB* 325 MG PO PRN (17:29)
[2016-06-20] MEDS: Ondansetron INJ* 2 MG/ML VIAL IV PRN ×2 (17:58→23:47)
[2016-06-20] MEDS ORDERED: NS 0.9% 1000 ML* 1,000 ML IV SCH (20:00)
--- NOTE | 2016-06-20 21:38 | RAD ---
Indication: Shortness of breath. Single frontal view of the chest performed at 2200 hours was reviewed. Comparison is made with previous exam dated June 13, 2016. Cardiomegaly is noted. Interstitial edema is noted. Central line is in place. Right hilar mass is identified. IMPRESSION: CARDIOMEGALY WITH INCREASING INTERSTITIAL EDEMA AND RIGHT HILAR MASS.
[2016-06-20] MEDS: Cefepime(*) 1 GM in NS 0.9% 50 ML* 50 ML IVPB SCH (22:00)
[2016-06-21] MEDS: VANCOMYCIN 50 MG/ML G TUBE SCH ×2 (00:38→12:00)
[2016-06-21] MEDS: Al Hydrox/Mg Hydrox/Simet LIQ* 30 ML UDC PO PRN ×2 (00:38→11:11)
[2016-06-21] MEDS: HYDROcodone/ACET. 7.5/325 LIQ* 15 ML UDC G TUBE SCH ×6 (01:43→20:11)
[2016-06-21] MEDS: GuaiFENesin DM* 5 ML UDC PO PRN ×3 (04:58→17:32)
[2016-06-21] MEDS ORDERED: Vancomycin Trough Check NOTE FOLLOW UP ONE ×2 (05:30→13:30)
[2016-06-21] MEDS: Heparin VIAL(*) 5000 UNITS/ML VIAL (FIVE THOUSAND) SUBCUT SCH ×3 (06:40→21:47)
[2016-06-21] MEDS: Ondansetron INJ* 2 MG/ML VIAL IV PRN ×2 (07:04→19:49)
[2016-06-21 07:09] LABS: Hematocrit 26 % (35-47); Hemoglobin 8.1 g/dl (12.0-16.0); Mean Corpuscular HGB Conc 31 g/dl (31-36); Mean Corpuscular Hemoglobin 23 pg (27-31); Mean Corpuscular Volume 74 fL (80-97); Mean Platelet Volume 8 um3 (7.4-10.4); Red Blood Count 3.54 10^6/ul (4.0-5.4); Red Cell Distribution Width 17 % (10.5-15); White Blood Count 18.3 10^3/ul (3.5-10.8)
[2016-06-21 07:10] LABS: Comments Flag Yes
[2016-06-21 07:25] LABS: BUN/Creatinine Ratio 64.7 (8-20); Calcium 8.5 mg/dL (8.6-10.3); EGFR African American 248.5 (>60); EGFR Non-African American 193.2 (>60); Potassium 3.4 mmol/L (3.5-5.0)
[2016-06-21] MEDS: Vancomycin(*) 1,000 MG in NS 0.9% 250 ML* 250 ML IVPB SCH ×3 (07:46→23:57)
[2016-06-21] MEDS ORDERED: NS 0.9% 1000 ML* 1,000 ML IV SCH (08:15)
[2016-06-21] MEDS: Cefepime(*) 1 GM in NS 0.9% 50 ML* 50 ML IVPB SCH ×2 (11:11→19:49)
[2016-06-21] MEDS: Magic Mouth Was-BEN/MAAL/LIDO SWISH SPIT SCH ×4 (11:12→21:47)
[2016-06-21] MEDS: Labetalol TAB* 100 MG PO SCH ×2 (11:12→21:47)
[2016-06-21] MEDS: Potassium Chloride LIQUID* 20 MEQ PACKET G TUBE SCH (11:12)
[2016-06-21] MEDS ORDERED: Furosemide IV* 10 MG/ML VIAL (40 MG) IV SLOW PU ONE (12:55)
--- NOTE | 2016-06-21 13:59 | CONS ---
CONSULTATION REPORT: DATE OF CONSULT: 06/21/16 REQUESTING PROVIDER: Sarthak Ceron MD CONSULTING SERVICE: Infectious Disease. REASON FOR CONSULTATION: Pneumonia. IMPRESSION: 1. 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 Vancomycin was added on the . Overall, she has improved with improving cough, occasional sweats, no fevers. She has a mild leukocytosis. A differential for the leukocytosis includes progressive pneumonia, which I think is unlikely given her stable oxygen saturation on 2 L. Other considerations are from necrosis of tumor, which is quite extensive based on the CT imaging. 2. Diarrhea, which is present for at least 5 days and has improved over the last 48 hours with occasional loose stools. I do not think she has a Clostridium difficile infection. RECOMMENDATIONS: We will continue to follow. Continue the same antibiotics except for vancomycin which I will change to flagyl. I will add a procalcitonin and a C-reactive protein to try and get some other markers to follow which may suggest resolution of her symptoms of her pneumonia. She is having radiation as well open up her bronchus on the right. HISTORY OF PRESENT ILLNESS: This is a 65-year-old woman with tongue cancer, metastatic, with obstructive pneumonia. She was admitted on the with progressive cough. Found to have cavitary lesions on the CT of the chest on the . She had bronchoscopy with needle aspiration of a lymph node, which was positive for squamous cell carcinoma. She was discharged on , after that procedure, came back on the with cough and weakness. Chest x-ray at that time showed lung masses and no infiltrate. Another x-ray was done yesterday because of white count, which persists showed increasing interstitial edema and right hilar mass. She notes occasional cough and sweats. No fever, chills, or rigors. She thinks overall, she is getting a little bit better energy ayers. PAST MEDICAL HISTORY: 1. 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 2. Left chest port. 3. History of TIA. 4. Hypertension. MEDICATIONS: 1. Tylenol. 2. Albuterol. 3. Guaifenesin p.r.n. 4. Vicodin. 5. Heparin subcutaneous injection. 6. Labetalol. 7. Cefepime 1 g every 12 hours. 8. Vancomycin 125 mg through the G-tube 4 times a day. 9. Vancomycin 1 g every 8 hours. ALLERGIES: PENICILLIN caused rash. FAMILY HISTORY: Parents . Father had stroke, mother had emphysema. SOCIAL HISTORY: She lives outside of [place] with her . No sick contacts. REVIEW OF SYSTEMS: A 12-point review of systems negative except as noted above. PHYSICAL EXAM: Vital Signs: Temperature is 37, heart rate 110, respirations 15 , blood pressure 140/70, and O2 sat 91% on 2 L. In general, she is not in distress or diaphoretic. Neurologically, she is awake and oriented x3, follows all commands. HEENT: No conjunctival hemorrhage. Oropharynx: Right tongue is edematous and there is no thrush. Neck: There is no mass. Supple. Lymph Nodes: There is no cervical, supraclavicular, inguinal, axillary, or epitrochlear lymphadenopathy. Heart: Regular and tachycardic without murmurs. Lungs: With bilateral expiratory rhonchi without wheezes or rales. Abdomen: Soft, nontender, and nondistended. There is a PEG present without surrounding erythema. Skin: There is no rash or splinter hemorrhages. Musculoskeletal: No spine tenderness to palpation or joint synovitis. DIAGNOSTIC STUDIES/LAB DATA: Creatinine 0.3. White blood cell count 18, hemoglobin 8, and platelets 263. The blood cultures are negative. AFB sputum smear negative x4. Please see impressions and recommendations as outlined above. Thank you for asking me to see Mr. Lozano in consultation. [id number]/[facility] #: [id number] DAO
--- NOTE | 2016-06-21 16:02 | PN ---
Subjective Date of Service: 06/21/16 Interval History: Seen and examined multiple times throughout the day Place on 11L NC when oxygen read 79%. Was titrated down to 3L by this author however she remained tachypneic with a RR>30 Received lasix IV with some improvement in oxygenation but not in work of breathing Pt reports subjective SOB as if she can't catch her breath Reports diarrhea has been improving Transferred to ICU for increased WOB after discussion with harmonic analyst Objective Active Medications: Acetaminophen (Tylenol Tab*) 650 mg PO Q6H PRN PRN Reason: PAIN/FEVER Last Admin: 06/20/16 18:00 Dose: 650 mg Hydrocodone Bitart/Acetaminophen (Nortab 7.5/325 Liq*) 15 ml G TUBE Q4H [facility] Last Admin: 06/21/16 15:11 Dose: 15 ml Al Hydrox/Mg Hydrox/Simethicone (Maalox Plus*) 30 ml PO Q4H PRN PRN Reason: DYSPEPSIA Last Admin: 06/21/16 11:11 Dose: 30 ml Albuterol (Ventolin 2.5 Mg/3 Ml Neb.Annie*) 2.5 mg INH Q4H PRN PRN Reason: SOB/WHEEZING Guaifenesin/Dextromethorphan (Robitussin Dm*) 10 ml PO Q6H PRN PRN Reason: COUGH Last Admin: 06/21/16 11:11 Dose: 10 ml Heparin Sodium (Porcine) (Heparin Vial(*)) 5,000 units SUBCUT Q8HR [facility] Last Admin: 06/21/16 15:11 Dose: 5,000 units Cefepime HCl 1 gm/ Sodium (Chloride) 50 mls @ 100 mls/hr IVPB Q12H [facility] Last Admin: 06/21/16 11:11 Dose: 100 mls/hr Vancomycin HCl 1,000 mg/ (Sodium Chloride) 250 mls @ 166.667 mls/hr IVPB Q8H [facility] Labetalol HCl (Trandate Tab*) 300 mg PO BID [facility] Last Admin: 06/21/16 11:12 Dose: 300 mg Metronidazole (Flagyl Tab*) 500 mg PEG TUBE BID [facility] Multi-Ingredient Mouthwash/Gargle (Magic Mouth Was-Esvin/Maal/Lido*) 5 ml SWISH SPIT QID [facility] Last Admin: 06/21/16 14:23 Dose: Not Given Ondansetron HCl (Zofran Odt Tab*) 4 mg SL Q6H PRN PRN Reason: NAUSEA/VOMITING Last Admin: 06/20/16 22:34 Dose: 4 mg Ondansetron HCl (Zofran Inj*) 4 mg IV Q6H PRN PRN Reason: NAUSEA/VOMITING Last Admin: 06/21/16 07:04 Dose: 4 mg Pharmacy Consult (Vancomycin Per Pharmacy*) 1 note FOLLOW UP . PRN PRN Reason: PER PROTOCOL Pharmacy Profile Note (Vancomycin Trough Check) 1 note FOLLOW UP ONCE ONE Stop: 06/22/16 07:31 Potassium Chloride (Klor-Con Liquid*) 20 meq G TUBE DAILY [facility] Last Admin: 06/21/16 11:12 Dose: 20 meq Vital Signs 06/20/16 06/20/16 06/20/16 16:18 17:00 17:57 Temperature 100.7 F Pulse Rate Respiratory 18 28 26 Rate Blood Pressure (mmHg) O2 Sat by Pulse Oximetry 06/20/16 06/20/16 06/20/16 18:57 20:00 22:35 Temperature Pulse Rate Respiratory 22 20 Rate Blood Pressure (mmHg) O2 Sat by Pulse 92 Oximetry 06/20/16 06/21/16 06/21/16 23:52 00:35 01:43 Temperature 97.9 F Pulse Rate 101 Respiratory 16 20 Rate Blood Pressure 129/63 (mmHg) O2 Sat by Pulse 94 Oximetry 06/21/16 06/21/16 06/21/16 03:43 06:40 07:47 Temperature 98.6 F Pulse Rate 113 Respiratory 20 22 15 Rate Blood Pressure 143/73 (mmHg) O2 Sat by Pulse 91 Oximetry 06/21/16 06/21/16 06/21/16 08:00 08:40 11:11 Temperature Pulse Rate Respiratory 24 24 22 Rate Blood Pressure (mmHg) O2 Sat by Pulse Oximetry 06/21/16 06/21/16 06/21/16 12:15 12:16 13:00 Temperature 100.0 F 100.0 F 99.7 F Pulse Rate 118 115 Respiratory 32 30 Rate Blood Pressure (mmHg) O2 Sat by Pulse 79 91 92 Oximetry 06/21/16 06/21/16 06/21/16 13:11 14:58 15:11 Temperature 100 F Pulse Rate 105 Respiratory 29 20 25 Rate Blood Pressure 118/64 (mmHg) O2 Sat by Pulse 96 Oximetry Oxygen Devices in Use Now: High Flow Nasal Cannula Appearance: sitting up in bed, +accessory muscle use, talks in several word sentences Eyes: No Scleral Icterus, PERRLA Ears/Nose/Mouth/Throat: - - dry MM Neck: NL Appearance and Movements; NL JVP, Trachea Midline Respiratory: Symmetrical Chest Expansion and Respiratory Effort, - - diffuse rhonchi worse on right Cardiovascular: - - tachycardia Abdominal: NL Sounds; No Tenderness; No Distention, No Hepatosplenomegaly Lymphatic: No Cervical Adenopathy Extremities: - - 1+ LE edema Neurological: Alert and Oriented x 3 Result Diagrams: 06/21/16 06:07 06/21/16 06:07 Additional Lab and Data: Lab Results 06/13/16 06/13/16 06/13/16 Range/Units 12:40 12:40 12:40 WBC 11.4 H (3.5-10.8) 10^3/ul RBC 3.79 L (4.0-5.4) 10^6/ul Hgb 8.8 L (12.0-16.0) g/dl Hct 28 L (35-47) % MCV 73 L (80-97) fL MCH 23 L (27-31) pg MCHC 32 (31-36) g/dl RDW 16 H (10.5-15) % Plt Count 223 (150-450) 10^3/ul MPV 8 (7.4-10.4) um3 Neut % (Auto) 86.8 H (38-83) % Lymph % (Auto) 2.4 L (25-47) % Hays % (Auto) 8.0 (1-9) % Eos % (Auto) 2.6 (0-6) % Baso % (Auto) 0.2 (0-2) % Absolute Neuts (auto) 9.9 H (1.5-7.7) 10^3/ul Absolute Lymphs (auto) 0.3 L (1.0-4.8) 10^3/ul Absolute Monos (auto) 0.9 H (0-0.8) 10^3/ul Absolute Eos (auto) 0.3 (0-0.6) 10^3/ul Absolute Basos (auto) 0 (0-0.2) 10^3/ul Absolute Nucleated RBC 0.01 10^3/ul Nucleated RBC % 0 Sodium 127 L (133-145) mmol/L Potassium 5.0 (3.5-5.0) mmol/L Chloride 92 L (101-111) mmol/L Carbon Dioxide 31 (22-32) mmol/L Anion Gap 4 (2-11) mmol/L BUN 21 (6-24) mg/dL Creatinine 0.42 L (0.51-0.95) mg/dL Est GFR ( Amer) 194.7 (>60) Est GFR (Non-Af Amer) 151.4 (>60) BUN/Creatinine Ratio 50.0 H (8-20) Glucose 105 H (70-100) mg/dL Lactic Acid 1.1 (0.5-2.0) mmol/L Calcium 8.8 (8.6-10.3) mg/dL Total Bilirubin 0.60 (0.2-1.0) mg/dL AST 70 H (13-39) U/L ALT 29 (7-52) U/L Alkaline Phosphatase 261 H (34-104) U/L Troponin I 0.01 (<0.04) ng/mL C-Reactive Protein 145.93 H (< 5.00) mg/L B-Natriuretic Peptide ( - 100) pg/mL Total Protein 5.5 L (6.4-8.9) g/dL Albumin 2.6 L (3.2-5.2) g/dL Globulin 2.9 (2-4) g/dL Albumin/Globulin Ratio 0.9 L (1-3) 06/13/16 Range/Units 12:40 WBC (3.5-10.8) 10^3/ul RBC (4.0-5.4) 10^6/ul Hgb (12.0-16.0) g/dl Hct (35-47) % MCV (80-97) fL MCH (27-31) pg MCHC (31-36) g/dl RDW (10.5-15) % Plt Count (150-450) 10^3/ul MPV (7.4-10.4) um3 Neut % (Auto) (38-83) % Lymph % (Auto) (25-47) % Hays % (Auto) (1-9) % Eos % (Auto) (0-6) % Baso % (Auto) (0-2) % Absolute Neuts (auto) (1.5-7.7) 10^3/ul Absolute Lymphs (auto) (1.0-4.8) 10^3/ul Absolute Monos (auto) (0-0.8) 10^3/ul Absolute Eos (auto) (0-0.6) 10^3/ul Absolute Basos (auto) (0-0.2) 10^3/ul Absolute Nucleated RBC 10^3/ul Nucleated RBC % Sodium (133-145) mmol/L Potassium (3.5-5.0) mmol/L Chloride (101-111) mmol/L Carbon Dioxide (22-32) mmol/L Anion Gap (2-11) mmol/L BUN (6-24) mg/dL Creatinine (0.51-0.95) mg/dL Est GFR ( Amer) (>60) Est GFR (Non-Af Amer) (>60) BUN/Creatinine Ratio (8-20) Glucose (70-100) mg/dL Lactic Acid (0.5-2.0) mmol/L Calcium (8.6-10.3) mg/dL Total Bilirubin (0.2-1.0) mg/dL AST (13-39) U/L ALT (7-52) U/L Alkaline Phosphatase (34-104) U/L Troponin I (<0.04) ng/mL C-Reactive Protein (< 5.00) mg/L B-Natriuretic Peptide 68 ( - 100) pg/mL Total Protein (6.4-8.9) g/dL Albumin (3.2-5.2) g/dL Globulin (2-4) g/dL Albumin/Globulin Ratio (1-3) Microbiology and Other Data: Microbiology 06/15/16 09:00 Acid Fast Bacilli Smear - Final Respiratory - Sputum 06/14/16 22:00 Acid Fast Bacilli Smear - Final Respiratory - Sputum 06/14/16 16:50 Acid Fast Bacilli Smear - Final Respiratory - Sputum 06/14/16 16:20 Acid Fast Bacilli Smear - Final Respiratory - Sputum Assess/Plan/Problems-Billing Assessment: 65 yo F h/o SCC tongue s/p chemo/RT, found with necrotic masses in lung with LN biopsy positive for SCC with concern for additional superimposed PNA - Patient Problems (1) Threatening to others Comment: noted to RN today that both he and patient have pistol permit and he could bring in a gun and teach everyone a lesson Admin correctional case manager notified of 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 This author relayed to ICU on transfer. (2) Acute respiratory failure with hypoxia Comment: improved but not resolved with 40IV lasix. Hesitate to diurese aggresively in setting of tachycardia, fevers, WBC (3) C. difficile colitis Comment: Treating empirically with PO vanco s/p course of clinda Diarrhea persists but is improving (4) Hypernatremia Comment: Improved with normal saline Taking adequate PO according to I/O (5) Tachycardia Comment: Received liter of fluid overnight Worsening SOB May require additional fluids but will monitor for stabalization of breathing (6) Pneumonia Comment: Cavitating lung lesions. AFB smewar x 3 neg. Clindamycin stopped due to diarrhea. c/w cefepime, and vancomycin EBUS 06/[address] biopsy -cytology shows malignant squamous cell ca. RT started 06/19 with goal of opening right main stem bronchus (7) Squamous cell cancer of tongue Comment: S/P chemo/RT. Followed by Dr. Berry, to see [place] medical oncologist. Video swallow study shows she tolerates thin liquids and pureed food. Continue liquid hydrocodone/APAP to q 4 hr scheduled (8) DVT prophylaxis Comment: Heparin sub q
[2016-06-21] MEDS: metroNIDAZOLE TAB* 250 MG PEG TUBE SCH (21:47)
[2016-06-22] MEDS: HYDROcodone/ACET. 7.5/325 LIQ* 15 ML UDC G TUBE SCH ×6 (00:09→20:36)
[2016-06-22] MEDS: GuaiFENesin DM* 5 ML UDC PO PRN ×4 (03:12→23:23)
[2016-06-22] MEDS: Ondansetron INJ* 2 MG/ML VIAL IV PRN (03:47)
[2016-06-22] MEDS: Heparin VIAL(*) 5000 UNITS/ML VIAL (FIVE THOUSAND) SUBCUT SCH ×3 (05:10→20:37)
[2016-06-22 05:52] LABS: BUN/Creatinine Ratio 54.3 (8-20); Calcium 8.7 mg/dL (8.6-10.3); EGFR African American 240.3 (>60); EGFR Non-African American 186.9 (>60); Potassium 3.3 mmol/L (3.5-5.0); Vancomycin Trough 13.2 mcg/mL
[2016-06-22] MEDS ORDERED: Vancomycin Trough Check NOTE FOLLOW UP ONE (07:30)
[2016-06-22] MEDS: metroNIDAZOLE TAB* 250 MG PEG TUBE SCH ×2 (08:38→20:37)
[2016-06-22] MEDS: Cefepime(*) 1 GM in NS 0.9% 50 ML* 50 ML IVPB SCH ×2 (08:38→20:51)
[2016-06-22] MEDS: Labetalol TAB* 100 MG PO SCH ×2 (08:38→20:37)
[2016-06-22] MEDS: Potassium Chloride LIQUID* 20 MEQ PACKET G TUBE SCH (08:38)
[2016-06-22] MEDS: Magic Mouth Was-BEN/MAAL/LIDO SWISH SPIT SCH ×4 (09:01→20:39)
[2016-06-22] MEDS: Vancomycin(*) 1,000 MG in NS 0.9% 250 ML* 250 ML IVPB SCH ×3 (09:56→23:23)
--- NOTE | 2016-06-22 11:16 | PN ---
Progress Note - Progress Note SOAP: Subjective: DOS: 06/22/16 CC: pneumonia HPI: 65 year old woman with oropharyngeal cancer, recent chemotherapy and current XRT. Transferred to ICU overnight for dyspnea. On hi flow O2, feels comfortable today. No fever or rash. Had one soft stool today. Objective: [] Vital Signs Temp 36.6 C 06/22/16 07:31 Pulse 101 06/22/16 09:30 Resp 21 06/22/16 10:00 BP 109/65 06/22/16 10:00 Pulse Ox 98 06/22/16 09:30 Intake & Output 06/21/16 06/22/16 06/22/16 18:59 06:59 18:59 Intake Total 620 1510 60 Output Total 0 850 0 Balance 620 660 60 Weight 164 lb 0.383 oz Intake: IV Fluids 850 ABX - CEFEPIME 386 NS (0.9%) 464 IVPB 300 ABX - CEFEPIME 50 VAnco 250 Oral 0 300 Tube Feeding 120 Tube Feeding Flush Amount 500 60 60 Output: Urine 850 Tube Feeding Residual 0 0 Amount Wasted Other: Estimated Void Medium # Bowel Movements 2 0 Estimated Stool Amount Medium Medium # Voids 3 Gen:No distress Neuro:Awake, Ox3 HEENT:PERRL, MMD Neck:supple Heart:RRR no murmur Lungs:coarse BS Abd:+BS NTND soft; PEG Skin: no rash Laboratory Results - last 24 hr 06/22/16 06/22/16 05:20 07:55 Sodium 141 Potassium 3.3 L Chloride 104 Carbon Dioxide 32 Anion Gap 5 BUN 19 Creatinine 0.35 L Est GFR ( Amer) 240.3 Est GFR (Non-Af Amer) 186.9 BUN/Creatinine Ratio 54.3 H Glucose 127 H Calcium 8.7 Vancomycin Trough 13.2 10.7 Assessment: 1. Pneumonia, post obstructive, in setting of bilateral airway obstruction due to metastatic cancer 2. acute hypoxemic failure 3. diarrhea, improved; low pretest probablity for Cdif 4. oropharyngeal cancer 5. PCN allergy Plan: 1. vancomycin goal tr 10-15, levaquin, flagyl for post obstructive pneumonia day 6. Ongoing XRT. Discussed with Timmy Brenner Powell.
[2016-06-22] MEDS: KCL 10 MEQ/50 ML IVPREMIX* 10 MEQ/50 ML BAG IV SCH ×2 (11:40→13:40)
--- NOTE | 2016-06-22 17:16 | PN ---
Subjective Date of Service: 06/22/16 Interval History: Seen and examined this morning Discussed care with at bedside Pt with continued cough but feels improved. Had episode overnight when she felt SOB Reporting liquid stool to me but loose or formed to other providers Pain in mouth is better today Objective Active Medications: Acetaminophen (Tylenol Tab*) 650 mg PO Q6H PRN PRN Reason: PAIN/FEVER Last Admin: 06/20/16 18:00 Dose: 650 mg Hydrocodone Bitart/Acetaminophen (Nortab 7.5/325 Liq*) 15 ml G TUBE Q4H [facility] Last Admin: 06/22/16 16:46 Dose: 15 ml Al Hydrox/Mg Hydrox/Simethicone (Maalox Plus*) 30 ml PO Q4H PRN PRN Reason: DYSPEPSIA Last Admin: 06/21/16 11:11 Dose: 30 ml Albuterol (Ventolin 2.5 Mg/3 Ml Neb.Annie*) 2.5 mg INH Q4H PRN PRN Reason: SOB/WHEEZING Guaifenesin/Dextromethorphan (Robitussin Dm*) 10 ml PO Q6H PRN PRN Reason: COUGH Last Admin: 06/22/16 12:29 Dose: 10 ml Heparin Sodium (Porcine) (Heparin Vial(*)) 5,000 units SUBCUT Q8HR [facility] Last Admin: 06/22/16 13:40 Dose: 5,000 units Cefepime HCl 1 gm/ Sodium (Chloride) 50 mls @ 100 mls/hr IVPB Q12H [facility] Last Admin: 06/22/16 08:38 Dose: 100 mls/hr Vancomycin HCl 1,000 mg/ (Sodium Chloride) 250 mls @ 166.667 mls/hr IVPB Q8H [facility] Last Admin: 06/22/16 16:46 Dose: 166.667 mls/hr Labetalol HCl (Trandate Tab*) 300 mg PO BID [facility] Last Admin: 06/22/16 08:38 Dose: 300 mg Metronidazole (Flagyl Tab*) 500 mg PEG TUBE BID [facility] Last Admin: 06/22/16 08:38 Dose: 500 mg Multi-Ingredient Mouthwash/Gargle (Magic Mouth Was-Esvin/Maal/Lido*) 5 ml SWISH SPIT QID [facility] Last Admin: 06/22/16 16:27 Dose: Not Given Ondansetron HCl (Zofran Odt Tab*) 4 mg SL Q6H PRN PRN Reason: NAUSEA/VOMITING Last Admin: 06/20/16 22:34 Dose: 4 mg Ondansetron HCl (Zofran Inj*) 4 mg IV Q6H PRN PRN Reason: NAUSEA/VOMITING Last Admin: 06/22/16 03:47 Dose: 4 mg Pharmacy Consult (Vancomycin Per Pharmacy*) 1 note FOLLOW UP . PRN PRN Reason: PER PROTOCOL Pharmacy Profile Note (Vancomycin Trough Check) 1 note FOLLOW UP 0730 ONE Stop: 06/24/16 07:31 Potassium Chloride (Klor-Con Liquid*) 20 meq G TUBE DAILY [facility] Last Admin: 06/22/16 08:38 Dose: 20 meq Vital Signs 06/21/16 06/21/16 06/21/16 17:30 18:00 18:30 Temperature Pulse Rate 95 94 91 Respiratory 16 19 18 Rate Blood Pressure 130/80 129/65 (mmHg) O2 Sat by Pulse 99 100 100 Oximetry 06/21/16 06/21/16 06/21/16 19:00 19:30 19:48 Temperature 98.1 F Pulse Rate 94 Respiratory 18 25 Rate Blood Pressure 132/70 (mmHg) O2 Sat by Pulse 100 Oximetry 06/21/16 06/21/16 06/21/16 20:00 20:03 20:05 Temperature Pulse Rate 101 100 102 Respiratory 20 22 22 Rate Blood Pressure 141/83 (mmHg) O2 Sat by Pulse 100 100 99 Oximetry 06/21/16 06/21/16 06/21/16 20:11 20:30 21:00 Temperature Pulse Rate 103 99 Respiratory 22 19 18 Rate Blood Pressure 132/66 (mmHg) O2 Sat by Pulse 98 98 Oximetry 06/21/16 06/21/16 06/21/16 21:30 22:00 22:30 Temperature Pulse Rate 95 104 91 Respiratory 18 23 18 Rate Blood Pressure 143/80 (mmHg) O2 Sat by Pulse 98 98 97 Oximetry 06/21/16 06/21/16 06/21/16 23:00 23:08 23:30 Temperature Pulse Rate 89 89 93 Respiratory 19 19 17 Rate Blood Pressure 115/57 (mmHg) O2 Sat by Pulse 97 97 97 Oximetry 06/21/16 06/22/16 06/22/16 23:32 00:00 00:09 Temperature 99.3 F Pulse Rate 99 Respiratory 26 21 Rate Blood Pressure (mmHg) O2 Sat by Pulse 98 Oximetry 06/22/16 06/22/16 06/22/16 00:30 01:00 01:30 Temperature Pulse Rate 96 96 95 Respiratory 19 19 19 Rate Blood Pressure 122/62 (mmHg) O2 Sat by Pulse 95 97 97 Oximetry 06/22/16 06/22/16 06/22/16 02:00 02:30 03:00 Temperature Pulse Rate 97 94 100 Respiratory 19 20 20 Rate Blood Pressure 128/65 136/76 (mmHg) O2 Sat by Pulse 96 97 98 Oximetry 06/22/16 06/22/16 06/22/16 03:30 04:00 04:09 Temperature 99.1 F Pulse Rate 107 124 Respiratory 22 19 Rate Blood Pressure 144/79 (mmHg) O2 Sat by Pulse 97 96 Oximetry 06/22/16 06/22/16 06/22/16 04:30 05:00 05:10 Temperature Pulse Rate 109 109 Respiratory 20 21 23 Rate Blood Pressure 135/70 (mmHg) O2 Sat by Pulse 96 96 Oximetry 06/22/16 06/22/16 06/22/16 05:30 06:00 06:30 Temperature Pulse Rate 116 122 120 Respiratory 21 24 24 Rate Blood Pressure 137/73 (mmHg) O2 Sat by Pulse 97 96 96 Oximetry 06/22/16 06/22/16 06/22/16 07:00 07:30 07:31 Temperature 97.9 F Pulse Rate 121 116 Respiratory 26 22 Rate Blood Pressure 140/72 (mmHg) O2 Sat by Pulse 97 96 Oximetry 06/22/16 06/22/16 06/22/16 08:00 08:30 08:41 Temperature Pulse Rate 114 115 115 Respiratory 24 23 25 Rate Blood Pressure 137/73 144/76 (mmHg) O2 Sat by Pulse 99 98 97 Oximetry 06/22/16 06/22/16 06/22/16 09:00 09:30 10:00 Temperature Pulse Rate 106 101 Respiratory 19 19 21 Rate Blood Pressure 127/73 109/65 (mmHg) O2 Sat by Pulse 98 98 Oximetry 06/22/16 06/22/16 06/22/16 10:30 11:00 11:11 Temperature Pulse Rate 96 103 102 Respiratory 20 23 21 Rate Blood Pressure 113/75 (mmHg) O2 Sat by Pulse 98 100 98 Oximetry 03/23/17 03/23/17 03/23/17 11:30 11:57 12:00 Temperature 99.6 F Pulse Rate 103 104 Respiratory 23 23 Rate Blood Pressure 130/70 (mmHg) O2 Sat by Pulse 98 97 Oximetry 06/22/16 06/22/16 06/22/16 12:29 12:30 13:00 Temperature Pulse Rate 107 Respiratory 20 26 24 Rate Blood Pressure 124/64 (mmHg) O2 Sat by Pulse 94 Oximetry 06/22/16 06/22/16 06/22/16 13:30 14:00 14:30 Temperature Pulse Rate 108 111 108 Respiratory 22 23 20 Rate Blood Pressure 127/60 (mmHg) O2 Sat by Pulse 97 98 96 Oximetry 06/22/16 06/22/16 06/22/16 15:00 15:30 15:33 Temperature 98.6 F Pulse Rate 108 110 Respiratory 23 26 Rate Blood Pressure 127/66 (mmHg) O2 Sat by Pulse 97 97 Oximetry 06/22/16 06/22/16 06/22/16 15:57 16:00 16:46 Temperature Pulse Rate 108 Respiratory 22 20 22 Rate Blood Pressure 127/66 (mmHg) O2 Sat by Pulse 97 Oximetry Oxygen Devices in Use Now: High Flow Nasal Cannula - Desat and increased WOB after 5 minutes on oxymask Neck: NL Appearance and Movements; NL JVP, Trachea Midline Respiratory: Symmetrical Chest Expansion and Respiratory Effort, - - rhonchi on right with scattered wheeze Cardiovascular: - - tachy, regular Abdominal: NL Sounds; No Tenderness; No Distention, No Hepatosplenomegaly Lymphatic: No Cervical Adenopathy Extremities: - - trace le edema Neurological: Alert and Oriented x 3 Result Diagrams: 06/21/16 06:07 06/22/16 05:20 Additional Lab and Data: Lab Results 06/13/16 06/13/16 06/13/16 Range/Units 12:40 12:40 12:40 WBC 11.4 H (3.5-10.8) 10^3/ul RBC 3.79 L (4.0-5.4) 10^6/ul Hgb 8.8 L (12.0-16.0) g/dl Hct 28 L (35-47) % MCV 73 L (80-97) fL MCH 23 L (27-31) pg MCHC 32 (31-36) g/dl RDW 16 H (10.5-15) % Plt Count 223 (150-450) 10^3/ul MPV 8 (7.4-10.4) um3 Neut % (Auto) 86.8 H (38-83) % Lymph % (Auto) 2.4 L (25-47) % [place] % (Auto) 8.0 (1-9) % Eos % (Auto) 2.6 (0-6) % Baso % (Auto) 0.2 (0-2) % Absolute Neuts (auto) 9.9 H (1.5-7.7) 10^3/ul Absolute Lymphs (auto) 0.3 L (1.0-4.8) 10^3/ul Absolute Monos (auto) 0.9 H (0-0.8) 10^3/ul Absolute Eos (auto) 0.3 (0-0.6) 10^3/ul Absolute Basos (auto) 0 (0-0.2) 10^3/ul Absolute Nucleated RBC 0.01 10^3/ul Nucleated RBC % 0 Sodium 127 L (133-145) mmol/L Potassium 5.0 (3.5-5.0) mmol/L Chloride 92 L (101-111) mmol/L Carbon Dioxide 31 (22-32) mmol/L Anion Gap 4 (2-11) mmol/L BUN 21 (6-24) mg/dL Creatinine 0.42 L (0.51-0.95) mg/dL Est GFR ( Amer) 194.7 (>60) Est GFR (Non-Af Amer) 151.4 (>60) BUN/Creatinine Ratio 50.0 H (8-20) Glucose 105 H (70-100) mg/dL Lactic Acid 1.1 (0.5-2.0) mmol/L Calcium 8.8 (8.6-10.3) mg/dL Total Bilirubin 0.60 (0.2-1.0) mg/dL AST 70 H (13-39) U/L ALT 29 (7-52) U/L Alkaline Phosphatase 261 H (34-104) U/L Troponin I 0.01 (<0.04) ng/mL C-Reactive Protein 145.93 H (< 5.00) mg/L B-Natriuretic Peptide ( - 100) pg/mL Total Protein 5.5 L (6.4-8.9) g/dL Albumin 2.6 L (3.2-5.2) g/dL Globulin 2.9 (2-4) g/dL Albumin/Globulin Ratio 0.9 L (1-3) 06/13/16 Range/Units 12:40 WBC (3.5-10.8) 10^3/ul RBC (4.0-5.4) 10^6/ul Hgb (12.0-16.0) g/dl Hct (35-47) % MCV (80-97) fL MCH (27-31) pg MCHC (31-36) g/dl RDW (10.5-15) % Plt Count (150-450) 10^3/ul MPV (7.4-10.4) um3 Neut % (Auto) (38-83) % Lymph % (Auto) (25-47) % [place] % (Auto) (1-9) % Eos % (Auto) (0-6) % Baso % (Auto) (0-2) % Absolute Neuts (auto) (1.5-7.7) 10^3/ul Absolute Lymphs (auto) (1.0-4.8) 10^3/ul Absolute Monos (auto) (0-0.8) 10^3/ul Absolute Eos (auto) (0-0.6) 10^3/ul Absolute Basos (auto) (0-0.2) 10^3/ul Absolute Nucleated RBC 10^3/ul Nucleated RBC % Sodium (133-145) mmol/L Potassium (3.5-5.0) mmol/L Chloride (101-111) mmol/L Carbon Dioxide (22-32) mmol/L Anion Gap (2-11) mmol/L BUN (6-24) mg/dL Creatinine (0.51-0.95) mg/dL Est GFR ( Amer) (>60) Est GFR (Non-Af Amer) (>60) BUN/Creatinine Ratio (8-20) Glucose (70-100) mg/dL Lactic Acid (0.5-2.0) mmol/L Calcium (8.6-10.3) mg/dL Total Bilirubin (0.2-1.0) mg/dL AST (13-39) U/L ALT (7-52) U/L Alkaline Phosphatase (34-104) U/L Troponin I (<0.04) ng/mL C-Reactive Protein (< 5.00) mg/L B-Natriuretic Peptide 68 ( - 100) pg/mL Total Protein (6.4-8.9) g/dL Albumin (3.2-5.2) g/dL Globulin (2-4) g/dL Albumin/Globulin Ratio (1-3) Microbiology and Other Data: Microbiology 06/15/16 09:00 Acid Fast Bacilli Smear - Final Respiratory - Sputum 06/14/16 22:00 Acid Fast Bacilli Smear - Final Respiratory - Sputum 06/14/16 16:50 Acid Fast Bacilli Smear - Final Respiratory - Sputum 06/14/16 16:20 Acid Fast Bacilli Smear - Final Respiratory - Sputum Assess/Plan/Problems-Billing Assessment: 65 yo F h/o SCC tongue s/p surgery/chemo/RT, found with necrotic masses in lung with LN biopsy positive for SCC with concern for additional superimposed postobstructive PNA - Patient Problems (1) Threatening to others Comment: noted to RN 06/21 that both he and patient have pistol permit and he could bring in a gun and teach everyone a lesson 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 This author relayed to ICU on transfer. (2) Acute respiratory failure with hypoxia Comment: Worsening in setting of PNA and underlying malignancy Unable to wean from vapotherm today Unable to receive RT while on vapotherm because there is no way to run the vapotherm in the RT clinic. (3) C. difficile colitis Comment: Treated empirically with some resolution. Pt relaying differing reports of stool consistency and frequency to providers. Check c. diff PCR (4) Hypernatremia Comment: Improved with normal saline Taking adequate PO according to I/O (5) Tachycardia Comment: 2 additional liters NS at 150cc in setting of tachycardia and decreased UOP (6) Pneumonia Comment: Cavitating lung lesions. AFB smewar x 3 neg. Clindamycin stopped due to diarrhea. 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 Followed by Dr. Berry Video swallow study shows she tolerates thin liquids and pureed food. Continue liquid hydrocodone/APAP to q 4 hr scheduled (8) DVT prophylaxis Comment: Heparin sub q
[2016-06-22] MEDS: NS 0.9% 1000 ML* 1,000 ML IV SCH (17:44)
[2016-06-23] MEDS: Ondansetron INJ* 2 MG/ML VIAL IV PRN ×2 (00:16→12:22)
[2016-06-23] MEDS: HYDROcodone/ACET. 7.5/325 LIQ* 15 ML UDC G TUBE SCH ×2 (00:17→04:31)
[2016-06-23] MEDS: NS 0.9% 1000 ML* 1,000 ML IV SCH (03:15)
[2016-06-23] MEDS: Heparin VIAL(*) 5000 UNITS/ML VIAL (FIVE THOUSAND) SUBCUT SCH ×3 (05:59→21:09)
[2016-06-23 06:36] LABS: Hematocrit 25 % (35-47); Mean Corpuscular HGB Conc 32 g/dl (31-36); Mean Corpuscular Hemoglobin 23 pg (27-31); Mean Platelet Volume 8 um3 (7.4-10.4); Red Blood Count 3.47 10^6/ul (4.0-5.4); Red Cell Distribution Width 17 % (10.5-15); White Blood Count 22.7 10^3/ul (3.5-10.8)
[2016-06-23 06:39] LABS: Comments Flag Yes
[2016-06-23 06:40] LABS: Mean Corpuscular Volume 73 fL (80-97)
[2016-06-23 07:02] LABS: BUN/Creatinine Ratio 45.7 (8-20); Calcium 8.5 mg/dL (8.6-10.3); EGFR African American 240.3 (>60); EGFR Non-African American 186.9 (>60); Potassium 3.2 mmol/L (3.5-5.0)
[2016-06-23] MEDS: Vancomycin(*) 1,000 MG in NS 0.9% 250 ML* 250 ML IVPB SCH ×2 (07:49→15:41)
[2016-06-23] MEDS ORDERED: Furosemide IV* 10 MG/ML VIAL (40 MG) IV ONE (08:42)
--- NOTE | 2016-06-23 08:52 | PN ---
Subjective Date of Service: 06/23/16 Interval History: OK overnight but increased cough this AM Pain in shoulder worse Requesting increase frequency of pain meds and more dextromethorphan Objective Active Medications: Acetaminophen (Tylenol Tab*) 650 mg PO Q6H PRN PRN Reason: PAIN/FEVER Last Admin: 06/20/16 18:00 Dose: 650 mg Al Hydrox/Mg Hydrox/Simethicone (Maalox Plus*) 30 ml PO Q4H PRN PRN Reason: DYSPEPSIA Last Admin: 06/21/16 11:11 Dose: 30 ml Albuterol (Ventolin 2.5 Mg/3 Ml Neb.Annie*) 2.5 mg INH Q4H PRN PRN Reason: SOB/WHEEZING Codeine Sulfate (Codeine Tab*) 15 mg G TUBE Q4H PRN PRN Reason: COUGH Guaifenesin/Dextromethorphan (Robitussin Dm*) 10 ml PO Q6H PRN PRN Reason: COUGH Last Admin: 06/22/16 23:23 Dose: 10 ml Heparin Sodium (Porcine) (Heparin Vial(*)) 5,000 units SUBCUT Q8HR [facility] Last Admin: 06/23/16 05:59 Dose: 5,000 units Cefepime HCl 1 gm/ Sodium (Chloride) 50 mls @ 100 mls/hr IVPB Q12H [facility] Last Admin: 06/22/16 20:51 Dose: 100 mls/hr Vancomycin HCl 1,000 mg/ (Sodium Chloride) 250 mls @ 166.667 mls/hr IVPB Q8H [facility] Last Admin: 06/23/16 07:49 Dose: 166.667 mls/hr Sodium Chloride (Ns 0.9% 1000 Ml*) 1,000 mls @ 150 mls/hr IV PER RATE [facility] Stop: 06/23/16 23:54 Last Admin: 06/23/16 03:15 Dose: 150 mls/hr Metronidazole/Sodium Chloride (Flagyl 500 Mg Ivpb*) 500 mg in 100 mls @ 100 mls /hr IVPB Q8H [facility] Labetalol HCl (Trandate Tab*) 300 mg PO BID [facility] Last Admin: 06/22/16 20:37 Dose: 300 mg Morphine Sulfate (Morphine Inj (Syringe)*) 1 mg IV Q4H PRN PRN Reason: PAIN - UNRELIEVED Multi-Ingredient Mouthwash/Gargle (Magic Mouth Was-Esvin/Maal/Lido*) 5 ml SWISH SPIT QID [facility] Last Admin: 06/22/16 20:39 Dose: 5 ml Ondansetron HCl (Zofran Odt Tab*) 4 mg SL Q6H PRN PRN Reason: NAUSEA/VOMITING Last Admin: 06/20/16 22:34 Dose: 4 mg Ondansetron HCl (Zofran Inj*) 4 mg IV Q6H PRN PRN Reason: NAUSEA/VOMITING Last Admin: 06/23/16 00:16 Dose: 4 mg Oxycodone HCl (Oxycodone Oral.Soln*) 5 mg PO Q4H PRN PRN Reason: PAIN Pharmacy Consult (Vancomycin Per Pharmacy*) 1 note FOLLOW UP . PRN PRN Reason: PER PROTOCOL Pharmacy Profile Note (Vancomycin Trough Check) 1 note FOLLOW UP 07 ONE Stop: 06/24/16 07:31 Potassium Chloride (Klor-Con Liquid*) 20 meq G TUBE DAILY [facility] Last Admin: 06/22/16 08:38 Dose: 20 meq Potassium Chloride (Klor-Con Liquid*) 60 meq PO DAILY [facility] Vital Signs 06/22/16 06/22/16 06/22/16 09:00 09:30 10:00 Temperature Pulse Rate 106 101 Respiratory 19 19 21 Rate Blood Pressure 127/73 109/65 (mmHg) O2 Sat by Pulse 98 98 Oximetry 06/22/16 06/22/16 06/22/16 10:30 11:00 11:11 Temperature Pulse Rate 96 103 102 Respiratory 20 23 21 Rate Blood Pressure 113/75 (mmHg) O2 Sat by Pulse 98 100 98 Oximetry 06/22/16 06/22/16 06/22/16 11:30 11:57 12:00 Temperature 99.6 F Pulse Rate 103 104 Respiratory 23 23 Rate Blood Pressure 130/70 (mmHg) O2 Sat by Pulse 98 97 Oximetry 06/22/16 06/22/16 06/22/16 12:29 12:30 13:00 Temperature Pulse Rate 107 Respiratory 20 26 24 Rate Blood Pressure 124/64 (mmHg) O2 Sat by Pulse 94 Oximetry 06/22/16 06/22/16 06/22/16 13:30 14:00 14:30 Temperature Pulse Rate 108 111 108 Respiratory 22 23 20 Rate Blood Pressure 127/60 (mmHg) O2 Sat by Pulse 97 98 96 Oximetry 06/22/16 06/22/16 06/22/16 15:00 15:30 15:33 Temperature 98.6 F Pulse Rate 108 110 Respiratory 23 26 Rate Blood Pressure 127/66 (mmHg) O2 Sat by Pulse 97 97 Oximetry 06/22/16 06/22/16 06/22/16 15:57 16:00 16:30 Temperature Pulse Rate 108 106 Respiratory 22 20 23 Rate Blood Pressure 127/66 (mmHg) O2 Sat by Pulse 97 93 Oximetry 06/22/16 06/22/16 06/22/16 16:46 17:00 17:30 Temperature Pulse Rate 110 111 Respiratory 22 24 23 Rate Blood Pressure 139/98 (mmHg) O2 Sat by Pulse 91 93 Oximetry 06/22/16 06/22/16 06/22/16 18:00 18:30 18:52 Temperature Pulse Rate 110 Respiratory 21 25 25 Rate Blood Pressure 115/60 (mmHg) O2 Sat by Pulse 94 Oximetry 06/22/16 06/22/16 06/22/16 19:00 19:30 20:00 Temperature 99.4 F Pulse Rate 116 116 118 Respiratory 24 26 22 Rate Blood Pressure 127/72 138/73 (mmHg) O2 Sat by Pulse 96 96 93 Oximetry 06/22/16 06/22/16 06/22/16 20:28 20:30 20:36 Temperature Pulse Rate 115 115 Respiratory 21 20 30 Rate Blood Pressure (mmHg) O2 Sat by Pulse 96 95 Oximetry 06/22/16 06/22/16 06/22/16 21:00 21:30 22:00 Temperature Pulse Rate 112 102 97 Respiratory 25 20 19 Rate Blood Pressure 141/74 105/57 (mmHg) O2 Sat by Pulse 92 91 92 Oximetry 06/22/16 06/22/16 06/22/16 23:00 23:30 23:36 Temperature Pulse Rate 102 105 106 Respiratory 21 22 25 Rate Blood Pressure 116/67 (mmHg) O2 Sat by Pulse 95 94 95 Oximetry 06/23/16 06/23/16 06/23/16 00:00 00:01 00:17 Temperature 100.2 F Pulse Rate 102 101 Respiratory 22 22 23 Rate Blood Pressure 118/63 (mmHg) O2 Sat by Pulse 91 92 Oximetry 06/23/16 06/23/16 06/23/16 00:30 01:00 01:30 Temperature Pulse Rate 102 101 96 Respiratory 21 20 19 Rate Blood Pressure 120/65 (mmHg) O2 Sat by Pulse 92 90 93 Oximetry 06/23/16 06/23/16 06/23/16 02:00 02:30 03:00 Temperature Pulse Rate 95 100 99 Respiratory 19 21 20 Rate Blood Pressure 115/60 124/63 (mmHg) O2 Sat by Pulse 93 92 94 Oximetry 06/23/16 06/23/16 06/23/16 03:30 04:00 04:30 Temperature 98.8 F Pulse Rate 107 105 109 Respiratory 26 22 25 Rate Blood Pressure 134/71 (mmHg) O2 Sat by Pulse 93 94 93 Oximetry 06/23/16 06/23/16 06/23/16 04:31 05:00 05:30 Temperature Pulse Rate 113 109 Respiratory 24 23 20 Rate Blood Pressure 145/72 (mmHg) O2 Sat by Pulse 90 93 Oximetry 06/23/16 06/23/16 06:00 08:10 Temperature 99.7 F Pulse Rate 109 Respiratory 21 Rate Blood Pressure 138/74 (mmHg) O2 Sat by Pulse 92 Oximetry Oxygen Devices in Use Now: High Flow Nasal Cannula - 60% Appearance: sitting up in bed, coughing, NAD Eyes: No Scleral Icterus, PERRLA Ears/Nose/Mouth/Throat: Mucous Membranes Moist, - Neck: NL Appearance and Movements; NL JVP, Trachea Midline Respiratory: Symmetrical Chest Expansion and Respiratory Effort, - - diffuse rhonchi and end expiratory wheeze Cardiovascular: - - tachy Abdominal: NL Sounds; No Tenderness; No Distention, No Hepatosplenomegaly, - - peg c/d/i Extremities: - - trace to 1+ LE edema Neurological: Alert and Oriented x 3 Result Diagrams: 06/23/16 06:10 06/23/16 06:10 Additional Lab and Data: Lab Results 06/13/16 06/13/16 06/13/16 Range/Units 12:40 12:40 12:40 WBC 11.4 H (3.5-10.8) 10^3/ul RBC 3.79 L (4.0-5.4) 10^6/ul Hgb 8.8 L (12.0-16.0) g/dl Hct 28 L (35-47) % MCV 73 L (80-97) fL MCH 23 L (27-31) pg MCHC 32 (31-36) g/dl RDW 16 H (10.5-15) % Plt Count 223 (150-450) 10^3/ul MPV 8 (7.4-10.4) um3 Neut % (Auto) 86.8 H (38-83) % Lymph % (Auto) 2.4 L (25-47) % [place] % (Auto) 8.0 (1-9) % Eos % (Auto) 2.6 (0-6) % Baso % (Auto) 0.2 (0-2) % Absolute Neuts (auto) 9.9 H (1.5-7.7) 10^3/ul Absolute Lymphs (auto) 0.3 L (1.0-4.8) 10^3/ul Absolute Monos (auto) 0.9 H (0-0.8) 10^3/ul Absolute Eos (auto) 0.3 (0-0.6) 10^3/ul Absolute Basos (auto) 0 (0-0.2) 10^3/ul Absolute Nucleated RBC 0.01 10^3/ul Nucleated RBC % 0 Sodium 127 L (133-145) mmol/L Potassium 5.0 (3.5-5.0) mmol/L Chloride 92 L (101-111) mmol/L Carbon Dioxide 31 (22-32) mmol/L Anion Gap 4 (2-11) mmol/L BUN 21 (6-24) mg/dL Creatinine 0.42 L (0.51-0.95) mg/dL Est GFR ( Amer) 194.7 (>60) Est GFR (Non-Af Amer) 151.4 (>60) BUN/Creatinine Ratio 50.0 H (8-20) Glucose 105 H (70-100) mg/dL Lactic Acid 1.1 (0.5-2.0) mmol/L Calcium 8.8 (8.6-10.3) mg/dL Total Bilirubin 0.60 (0.2-1.0) mg/dL AST 70 H (13-39) U/L ALT 29 (7-52) U/L Alkaline Phosphatase 261 H (34-104) U/L Troponin I 0.01 (<0.04) ng/mL C-Reactive Protein 145.93 H (< 5.00) mg/L B-Natriuretic Peptide ( - 100) pg/mL Total Protein 5.5 L (6.4-8.9) g/dL Albumin 2.6 L (3.2-5.2) g/dL Globulin 2.9 (2-4) g/dL Albumin/Globulin Ratio 0.9 L (1-3) //17 Range/Units 12:40 WBC (3.5-10.8) 10^3/ul RBC (4.0-5.4) 10^6/ul Hgb (12.0-16.0) g/dl Hct (35-47) % MCV (80-97) fL MCH (27-31) pg MCHC (31-36) g/dl RDW (10.5-15) % Plt Count (150-450) 10^3/ul MPV (7.4-10.4) um3 Neut % (Auto) (38-83) % Lymph % (Auto) (25-47) % [place] % (Auto) (1-9) % Eos % (Auto) (0-6) % Baso % (Auto) (0-2) % Absolute Neuts (auto) (1.5-7.7) 10^3/ul Absolute Lymphs (auto) (1.0-4.8) 10^3/ul Absolute Monos (auto) (0-0.8) 10^3/ul Absolute Eos (auto) (0-0.6) 10^3/ul Absolute Basos (auto) (0-0.2) 10^3/ul Absolute Nucleated RBC 10^3/ul Nucleated RBC % Sodium (133-145) mmol/L Potassium (3.5-5.0) mmol/L Chloride (101-111) mmol/L Carbon Dioxide (22-32) mmol/L Anion Gap (2-11) mmol/L BUN (6-24) mg/dL Creatinine (0.51-0.95) mg/dL Est GFR ( Amer) (>60) Est GFR (Non-Af Amer) (>60) BUN/Creatinine Ratio (8-20) Glucose (70-100) mg/dL Lactic Acid (0.5-2.0) mmol/L Calcium (8.6-10.3) mg/dL Total Bilirubin (0.2-1.0) mg/dL AST (13-39) U/L ALT (7-52) U/L Alkaline Phosphatase (34-104) U/L Troponin I (<0.04) ng/mL C-Reactive Protein (< 5.00) mg/L B-Natriuretic Peptide 68 ( - 100) pg/mL Total Protein (6.4-8.9) g/dL Albumin (3.2-5.2) g/dL Globulin (2-4) g/dL Albumin/Globulin Ratio (1-3) Microbiology and Other Data: Microbiology 06/15/16 09:00 Acid Fast Bacilli Smear - Final Respiratory - Sputum 06/14/16 22:00 Acid Fast Bacilli Smear - Final Respiratory - Sputum 06/14/16 16:50 Acid Fast Bacilli Smear - Final Respiratory - Sputum 06/14/16 16:20 Acid Fast Bacilli Smear - Final Respiratory - Sputum Assess/Plan/Problems-Billing Assessment: 65 yo F h/o SCC tongue s/p surgery/chemo/RT, found with necrotic masses in lung with LN biopsy positive for SCC with concern for additional superimposed postobstructive PNA - Patient Problems (1) Threatening to others Comment: noted to RN 06/21 that both he and patient have pistol permit and he could bring in a gun and teach everyone a lesson 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 This author relayed to ICU on transfer. (2) Acute respiratory failure with hypoxia Comment: Worsening in setting of PNA and underlying malignancy lung exam worse after normal saline. Lasix 40IV now. Unable to receive RT while on vapotherm because there is no way to run the vapotherm in the RT clinic. (3) C. difficile colitis Comment: c. diff PCR negative, dirrhea improved (4) Tachycardia Comment: Lung exam worsened with normal saline no improvement in HR Pain, cough, discomfort ongoing (5) Pneumonia Comment: Cavitating lung lesions. 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 RT started 06/19 with goal of opening right main stem bronchus appreciate ID assistance Stop hydrocodone with standing APAP to follow fevers codeine for cough, oxy for pain, morphine for breakthrough (6) Squamous cell cancer of tongue Comment: S/P surgery/chemo/RT. Followed by Dr. Berry Video swallow study shows she tolerates thin liquids and pureed food. (7) DVT prophylaxis Comment: Heparin sub q
[2016-06-23] MEDS ORDERED: Potassium Chloride LIQUID* 20 MEQ PACKET PO SCH (09:00)
[2016-06-23] MEDS: Morphine INJ* 2 MG/ML 1 ML SYRINGE IV PRN ×2 (09:06→14:43)
[2016-06-23] MEDS: Cefepime(*) 1 GM in NS 0.9% 50 ML* 50 ML IVPB SCH ×2 (09:08→20:34)
[2016-06-23] MEDS: Potassium Chloride LIQUID* 20 MEQ PACKET G TUBE SCH (09:10)
[2016-06-23] MEDS: GuaiFENesin DM* 5 ML UDC PO PRN ×2 (09:11→15:40)
[2016-06-23] MEDS: Labetalol TAB* 100 MG PO SCH ×2 (09:11→20:40)
[2016-06-23] MEDS: oxyCODONE ORAL.SOLN* 5 MG/5 ML UDC PO PRN ×2 (09:11→15:41)
[2016-06-23] MEDS: Magic Mouth Was-BEN/MAAL/LIDO SWISH SPIT SCH ×4 (09:23→20:41)
--- NOTE | 2016-06-23 09:48 | RAD ---
Indication: Worsening cough. Single frontal view of the chest performed at 0913 hours was reviewed. Comparison is made with previous exam dated June 20, 2016. Cardiomegaly is noted. Right middle lobe mass is again identified. Bibasilar airspace disease is noted. Pacemaker leads are in place. IMPRESSION: NO ACTIVE CARDIOPULMONARY DISEASE IS NOTED.
[2016-06-23] MEDS: metroNIDAZOLE IV 500 MG/100ML* 500 MG/100 ML BAG IVPB SCH ×2 (10:12→17:23)
[2016-06-23] MEDS: Codeine TAB* 15 MG G TUBE PRN (13:19)
--- NOTE | 2016-06-23 17:37 | PN ---
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 O2 weaned down, feels comfortable no rash No fever or rash. Had one soft stool today. Objective: [] Vital Signs Temp 36.6 C 06/22/16 07:31 Pulse 101 06/22/16 09:30 Resp 21 06/22/16 10:00 BP 109/65 06/22/16 10:00 Pulse Ox 98 06/22/16 09:30 Intake & Output 06/21/16 06/22/16 06/22/16 18:59 06:59 18:59 Intake Total 620 1510 60 Output Total 0 850 0 Balance 620 660 60 Weight 164 lb 0.383 oz Intake: IV Fluids 850 ABX - CEFEPIME 386 NS (0.9%) 464 IVPB 300 ABX - CEFEPIME 50 VAnco 250 Oral 0 300 Tube Feeding 120 Tube Feeding Flush Amount 500 60 60 Output: Urine 850 Tube Feeding Residual 0 0 Amount Wasted Other: Estimated Void Medium # Bowel Movements 2 0 Estimated Stool Amount Medium Medium # Voids 3 Gen:No distress Neuro:Awake, Ox3 HEENT:PERRL, MMD Neck:supple Heart:RRR no murmur Lungs:coarse BS Abd:+BS NTND soft; PEG Skin: no rash Laboratory Results - last 24 hr 06/23/16 06/23/16 06:10 06:10 WBC 22.7 H RBC 3.47 L Hgb 8.0 L Hct 25 L MCV 73 L MCH 23 L MCHC 32 RDW 17 H Plt Count 254 MPV 8 Neut % (Auto) 90.8 H Lymph % (Auto) 1.3 L [place] % (Auto) 4.8 Eos % (Auto) 2.0 Baso % (Auto) 1.1 Absolute Neuts (auto) 20.6 H Absolute Lymphs (auto) 0.3 L Absolute Monos (auto) 1.1 H Absolute Eos (auto) 0.5 Absolute Basos (auto) 0.2 Absolute Nucleated RBC 0 Nucleated RBC % 0 Sodium 140 Potassium 3.2 L Chloride 104 Carbon Dioxide 31 Anion Gap 5 BUN 16 Creatinine 0.35 L Est GFR ( Amer) 240.3 Est GFR (Non-Af Amer) 186.9 BUN/Creatinine Ratio 45.7 H Glucose 128 H Calcium 8.5 L Assessment: 1. Pneumonia, post obstructive, in setting of bilateral airway obstruction due to metastatic cancer 2. acute hypoxemic failure 3. diarrhea, improved 4. oropharyngeal cancer 5. PCN allergy Plan: 1. vancomycin goal tr 10-15, levaquin, flagyl for post obstructive pneumonia day 10/09. Ongoing XRT. Discussed with Dr Ceron
[2016-06-23] MEDS ORDERED: Morphine ORAL CONCENTRATE* 5 MG/0.25 ML ORAL.SYRIN PO PRN ×2 (17:49→17:57)
--- NOTE | 2016-06-23 22:59 | CONS ---
PALLIATIVE CARE CONSULT REPORT: DATE OF CONSULT: 06/23/16 PRIMARY CARE PHYSICIAN: Sarthak Ceron MD REASON FOR CONSULT: Evaluation for hospice care. HISTORY OF PRESENT ILLNESS AND HOSPITAL COURSE: This is a 65-year-old female with a past medical history of squamous cell carcinoma of the tongue, status post resection and chemoradiation, with recent cavitary lesions noted on CAT scan on prior admission earlier this month, was diagnosed with recurrence of her squamous cell carcinoma, mets to the lung bilaterally with cavitary lesions , was admitted on 13 of June with shortness of breath and weakness, was diagnosed with postobstructive pneumonia and found to have necrotic cavitary lung lesions. Dr. Bran was consulted. She had an abdominal and pelvis CT that did not show any evidence of metastatic disease. The patient had a bronchoscopy and EBUS biopsy on the , showed endobronchial ultrasound- guided fine needle aspiration malignant metastatic keratinizing squamous cell carcinoma. The patient sees the oncologist in [place] and had Radiation Oncology inpatient consultation, who recommended palliative approach and hospice palliative treatment option for thoracic radiation therapy to try to reduce airway obstruction and help with breathing and also facilitate response to antibiotics by addressing obstructive problems. At this time, she is not followed by Oncology and they were trying to get her reconnected back to her oncologist in [place] but her critical illness and social situation limited this. Because the patient decompensated prior to palliative radiation, it was not done as she was placed on 15 L high-flow nasal cannula and was transferred to the intensive care unit. At that time, her MOLST form was changed from a DNR to DNI. On my encounter, the patient understands that she has a limited life- expectancy with recurrence of her oral cancer that has now spread to her lungs and understands that she is in respiratory failure. She states that she still has significant amount of shortness of breath, but has not gotten worse during this admission and she has had a persistent cough. She continues to have this right shoulder pain for the past 1-1/2 weeks and continue to have diarrhea as well. When discussing disposition plan, she is interested in hospice care. She wants to go home with hospice. She is not interested in a [facility] or [facility] residence. She states her can somewhat take care of her, although he is limited by his arthritis. She has no family and she does have some friends, so the concern for additional care would be factor. She states that her mother had private aides who stole from her, so she is suspicious of hiring private aides coming to her home to help care for her. Otherwise, remaining review of systems is negative. PAST MEDICAL HISTORY: 1. Acute respiratory failure with hypoxia secondary to postobstructive pneumonia with cavitary lesions and recurrence of her squamous cell carcinoma. 2. History of C. diff colitis. 3. History of squamous cell cancer of tongue, status post chemoradiation and resection. 4. Dysphagia, diet is thin liquids and pureed food. 5. History of TIA. 6. Hypertension. INPATIENT MEDICATIONS: 1. Tylenol 650 mg every 6 hours as needed. 2. Maalox 30 mL every 4 hours as needed. 3. Albuterol 2.5 neb q.4 hours as needed. 4. Codeine mg q.4 hours as needed. 5. Guaifenesin 10 mL p.o. q.6 hours. 6. Heparin 5000 units subcu t.i.d. 7. Labetalol 300 mg p.o. b.i.d. 8. Cefepime 1 g q.12. 9. Magic Mouthwash 5 mL four times a day. 10. Morphine 1 mg IV q.4 hours as needed. 11. Zofran 4 mg every 6 hours as needed. 12. Zofran ODT 4 mg sublingual q.4 hours as needed. 13. Potassium chloride 20 mEq daily. 14. Potassium chloride 60 mEq daily. 15. Vancomycin 1 g q.8 hours. 16. Flagyl 500 mg q.8 hours. 17. Oxycodone 5 mg q.4 hours as needed. ALLERGIES: PENICILLIN and LISINOPRIL. FAMILY HISTORY: Father with CVA. Mother, history of emphysema. SOCIAL HISTORY: The patient has a history of smoking cigars about 1 a day for the past 15 years. No alcohol use or illicit drug use. Her healthcare proxy is her , Jan Lozano. MOLST is completed, DNR/DNI. REVIEW OF SYSTEMS: As mentioned in the HPI. PHYSICAL EXAM: Vitals: Temp 98.3, pulse rate 108, respiratory rate 21, oxygen saturation 97% on 15 L high-flow nasal cannula, blood pressure 124/67. General : No significant respiratory distress. HEENT: Oropharynx: Mucous membranes moist. Pupils are equal and reactive, anicteric. Head: Normocephalic. Neck: Supple. No lymphadenopathy. Respiratory: Coarse, rhonchorous breath sounds bilaterally with poor aeration. Cardiac: Tachycardia with soft, systolic murmur. Abdomen: Soft, nontender. Extremities: No clubbing, cyanosis, or edema. +1 DPs. Neurological: Alert and oriented x3. No focal neurological deficits. DIAGNOSTIC STUDIES/LAB DATA: White count 22.7, hemoglobin 8, hematocrit 25, platelets 254. Sodium 140, potassium 3.2, chloride 104, bicarb 31, BUN 16, creatinine 0.35, calcium 8.5. Most recent chest x-ray on June 23: No active cardiopulmonary disease noted , bibasilar airspace disease present, and right middle lobe mass is again identified. ASSESSMENT AND PLAN: This is a 65-year-old female with a past medical history of squamous cell carcinoma of the tongue, status post chemoradiation and resection, with recurrence with cavitary lesions in the lungs bilaterally, who presented to the emergency room on the , admitted with postobstructive pneumonia exacerbated by her lung metastases. The plan was initially to have undergo palliative radiation; however, the patient could not tolerate it due to her being on 15 L high-flow nasal cannula. She is also having issues with dysphagia as well and persistent right shoulder pain, which I wonder if could be mets as well to her bone. Her respiratory status has not seemed to have improved with high flow and antibiotics. She does not appear to be clinically stable for any radiation treatment, unlikely to be stable for palliative stent placement either, and I am not sure if she is even a candidate for that. The patient is interested in hospice. It appears that she would like to be home with hospice and hopefully this is a safe discharge plan for her with her caring for her and hopefully she is open to hiring private aides as well. As she mentioned that she is reluctant due to her mother having a bad experience. In the meantime, I will check a Hemoccult stool as it appears that she has been dizzy, her H and H has been low, but stable with microcytic anemia and I am going to add morphine oral concentrate 2.5 mg ever 2 hours as needed. I will follow up regarding more comfort care measures and discontinuing some of her other medications. The patient does not seem to be ready to approach this topic at this time. Thank you for this consultation. PATIENT TIME: Greater than 90 minutes was spent doing this consultation, more than half the time spent in direct patient contact. CC: Sarthak Ceron MD* [id number]/[facility] #: [id number] DAO
[2016-06-24] MEDS ORDERED: Al Hydrox/Mg Hydrox/Simet LIQ* 30 ML UDC PEG TUBE PRN (00:03)
[2016-06-24] MEDS: Vancomycin(*) 1,000 MG in NS 0.9% 250 ML* 250 ML IVPB SCH ×4 (00:44→23:59)
[2016-06-24] MEDS: Codeine TAB* 15 MG G TUBE PRN ×5 (00:53→20:35)
[2016-06-24] MEDS: GuaiFENesin DM* 5 ML UDC PEG TUBE PRN ×2 (00:53→08:13)
[2016-06-24] MEDS: Morphine INJ* 2 MG/ML 1 ML SYRINGE IV PRN ×4 (00:53→20:35)
[2016-06-24] MEDS: metroNIDAZOLE IV 500 MG/100ML* 500 MG/100 ML BAG IVPB SCH ×3 (01:49→18:14)
[2016-06-24] MEDS: oxyCODONE ORAL.SOLN* 5 MG/5 ML UDC PRN ×2 (05:02→23:20)
[2016-06-24] MEDS: Heparin VIAL(*) 5000 UNITS/ML VIAL (FIVE THOUSAND) SUBCUT SCH ×3 (05:11→22:00)
[2016-06-24] MEDS ORDERED: Vancomycin Trough Check NOTE FOLLOW UP ONE (07:30)
[2016-06-24] MEDS: Morphine ORAL CONCENTRATE* 5 MG/0.25 ML ORAL.SYRIN PEG TUBE PRN (08:13)
[2016-06-24] MEDS: Labetalol TAB* 100 MG PEG TUBE SCH ×2 (08:13→20:36)
[2016-06-24] MEDS: Potassium Chloride LIQUID* 20 MEQ PACKET PEG TUBE SCH (08:14)
[2016-06-24] MEDS: Magic Mouth Was-BEN/MAAL/LIDO SWISH SPIT SCH ×5 (08:14→22:13)
[2016-06-24] MEDS: Potassium Chloride LIQUID* 20 MEQ PACKET G TUBE SCH (08:14)
--- NOTE | 2016-06-24 08:52 | PN ---
Subjective Date of Service: 06/24/16 Interval History: Off vapotherm this AM and feels more SOB Cough continues. She is unsure if codeine is helping Diarrhea improved Right shoulder pain but not currently. Worse with use and coughing Objective Active Medications: Acetaminophen (Tylenol Adult Liq*) 650 mg PEG TUBE Q6H PRN PRN Reason: PAIN/FEVER Al Hydrox/Mg Hydrox/Simethicone (Maalox Plus*) 30 ml PEG TUBE Q4H PRN PRN Reason: DYSPEPSIA Albuterol (Ventolin 2.5 Mg/3 Ml Neb.Annie*) 2.5 mg INH Q4H PRN PRN Reason: SOB/WHEEZING Codeine Sulfate (Codeine Tab*) 30 mg G TUBE Q4H PRN PRN Reason: COUGH Guaifenesin/Dextromethorphan (Robitussin Dm*) 10 ml PEG TUBE Q6H PRN PRN Reason: COUGH Last Admin: 06/24/16 08:13 Dose: 10 ml Heparin Sodium (Porcine) (Heparin Vial(*)) 5,000 units SUBCUT Q8HR [facility] Last Admin: 06/24/16 05:11 Dose: 5,000 units Cefepime HCl 1 gm/ Sodium (Chloride) 50 mls @ 100 mls/hr IVPB Q12H [facility] Last Admin: 06/23/16 20:34 Dose: 100 mls/hr Vancomycin HCl 1,000 mg/ (Sodium Chloride) 250 mls @ 166.667 mls/hr IVPB Q8H [facility] Last Admin: 06/24/16 08:13 Dose: 166.667 mls/hr Metronidazole/Sodium Chloride (Flagyl 500 Mg Ivpb*) 500 mg in 100 mls @ 100 mls /hr IVPB Q8H [facility] Last Admin: 06/24/16 01:49 Dose: 100 mls/hr Labetalol HCl (Trandate Tab*) 300 mg PEG TUBE BID [facility] Last Admin: 06/24/16 08:13 Dose: 300 mg Morphine Sulfate (Morphine Inj (Syringe)*) 1 mg IV Q4H PRN PRN Reason: PAIN - UNRELIEVED Last Admin: 06/24/16 05:03 Dose: 1 mg Morphine Sulfate (Morphine Oral Concentrate*) 2.5 mg PEG TUBE Q2H PRN PRN Reason: PAIN Last Admin: 06/24/16 08:13 Dose: 2.5 mg Multi-Ingredient Mouthwash/Gargle (Magic Mouth Was-Esvin/Maal/Lido*) 5 ml SWISH SPIT QID [facility] Last Admin: 06/24/16 08:14 Dose: Not Given Ondansetron HCl (Zofran Odt Tab*) 4 mg SL Q6H PRN PRN Reason: NAUSEA/VOMITING Last Admin: 06/20/16 22:34 Dose: 4 mg Ondansetron HCl (Zofran Inj*) 4 mg IV Q6H PRN PRN Reason: NAUSEA/VOMITING Last Admin: 06/23/16 12:22 Dose: 4 mg Oxycodone HCl (Oxycodone Oral.Soln*) 5 mg .SEE ORDER Q4H PRN PRN Reason: PAIN Last Admin: 06/24/16 05:02 Dose: 5 mg Pharmacy Consult (Vancomycin Per Pharmacy*) 1 note FOLLOW UP . PRN PRN Reason: PER PROTOCOL Potassium Chloride (Klor-Con Liquid*) 20 meq G TUBE DAILY [facility] Last Admin: 06/24/16 08:14 Dose: 20 meq Potassium Chloride (Klor-Con Liquid*) 60 meq PEG TUBE DAILY [facility] Last Admin: 06/24/16 08:14 Dose: 60 meq Vital Signs 06/23/16 06/23/16 06/23/16 09:00 09:06 09:11 Temperature Pulse Rate 131 Respiratory 23 25 20 Rate Blood Pressure 157/83 (mmHg) O2 Sat by Pulse 94 Oximetry 06/23/16 06/23/16 06/23/16 09:30 09:49 10:00 Temperature Pulse Rate 128 115 110 Respiratory 31 20 20 Rate Blood Pressure 115/62 (mmHg) O2 Sat by Pulse 91 92 90 Oximetry 06/23/16 06/23/16 06/23/16 10:30 11:00 11:30 Temperature Pulse Rate 109 101 102 Respiratory 27 28 22 Rate Blood Pressure (mmHg) O2 Sat by Pulse 90 98 97 Oximetry 06/23/16 06/23/16 06/23/16 11:58 12:00 12:09 Temperature 99.3 F Pulse Rate 104 Respiratory 31 Rate Blood Pressure 109/59 110/61 (mmHg) O2 Sat by Pulse 97 Oximetry 06/23/16 06/23/16 06/23/16 12:30 12:58 13:00 Temperature Pulse Rate 105 110 Respiratory 26 20 30 Rate Blood Pressure 118/59 (mmHg) O2 Sat by Pulse 95 97 Oximetry 06/23/16 06/23/16 06/23/16 13:30 14:00 14:30 Temperature Pulse Rate 108 110 106 Respiratory 22 25 26 Rate Blood Pressure (mmHg) O2 Sat by Pulse 98 96 98 Oximetry 06/23/16 06/23/16 06/23/16 14:38 14:43 15:00 Temperature Pulse Rate 104 Respiratory 28 25 22 Rate Blood Pressure (mmHg) O2 Sat by Pulse 99 Oximetry 06/23/16 06/23/16 06/23/16 15:09 15:30 15:41 Temperature Pulse Rate 106 110 Respiratory 23 24 27 Rate Blood Pressure 128/74 (mmHg) O2 Sat by Pulse 99 98 Oximetry 06/23/16 06/23/16 06/23/16 15:44 15:59 16:00 Temperature 98.3 F Pulse Rate 110 Respiratory 23 26 Rate Blood Pressure 128/65 (mmHg) O2 Sat by Pulse 98 Oximetry 06/23/16 06/23/16 06/23/16 16:30 17:00 17:30 Temperature Pulse Rate 108 108 109 Respiratory 19 22 21 Rate Blood Pressure 124/67 (mmHg) O2 Sat by Pulse 98 98 97 Oximetry 06/23/16 06/23/16 06/23/16 18:00 18:30 19:00 Temperature Pulse Rate 109 107 113 Respiratory 23 26 25 Rate Blood Pressure 117/71 130/78 (mmHg) O2 Sat by Pulse 96 96 99 Oximetry 06/23/16 06/23/16 06/23/16 19:30 20:00 20:30 Temperature 99.1 F Pulse Rate 115 117 121 Respiratory 25 24 28 Rate Blood Pressure 142/86 (mmHg) O2 Sat by Pulse 98 99 98 Oximetry 06/23/16 06/23/16 06/23/16 21:00 21:30 22:00 Temperature Pulse Rate 107 103 103 Respiratory 26 27 28 Rate Blood Pressure 132/66 118/67 (mmHg) O2 Sat by Pulse 95 94 96 Oximetry 06/23/16 06/23/16 06/23/16 22:30 23:00 23:05 Temperature Pulse Rate 105 107 107 Respiratory 27 24 25 Rate Blood Pressure 127/70 (mmHg) O2 Sat by Pulse 96 96 95 Oximetry 06/23/16 06/23/1617 23:29 23:30 00:00 Temperature 97.1 F Pulse Rate 109 109 Respiratory 30 26 Rate Blood Pressure (mmHg) O2 Sat by Pulse 97 96 Oximetry 06/24/16 06/24/16 06/24/16 00:01 00:30 00:53 Temperature Pulse Rate 109 109 Respiratory 27 29 26 Rate Blood Pressure 109/90 (mmHg) O2 Sat by Pulse 96 98 Oximetry 06/24/16 06/24/16 06/24/16 01:00 01:30 02:00 Temperature Pulse Rate 107 106 106 Respiratory 25 23 22 Rate Blood Pressure 119/69 121/68 (mmHg) O2 Sat by Pulse 94 93 97 Oximetry 06/24/16 06/24/16 06/24/16 02:37 03:00 03:30 Temperature Pulse Rate 110 103 Respiratory 29 24 22 Rate Blood Pressure 113/76 (mmHg) O2 Sat by Pulse 97 96 Oximetry 06/24/16 06/24/16 06/24/16 04:00 04:30 05:00 Temperature 97.4 F Pulse Rate 113 113 110 Respiratory 23 23 24 Rate Blood Pressure 153/73 136/83 (mmHg) O2 Sat by Pulse 96 97 96 Oximetry 06/24/16 06/24/16 06/24/16 05:02 05:03 05:30 Temperature Pulse Rate 114 Respiratory 28 28 27 Rate Blood Pressure (mmHg) O2 Sat by Pulse 96 Oximetry 06/24/16 06/24/16 06/24/16 06:00 06:30 07:00 Temperature Pulse Rate 116 115 115 Respiratory 25 22 21 Rate Blood Pressure 138/75 119/97 (mmHg) O2 Sat by Pulse 96 96 95 Oximetry 06/24/16 06/24/16 07:30 07:47 Temperature Pulse Rate 120 Respiratory 26 24 Rate Blood Pressure (mmHg) O2 Sat by Pulse 98 Oximetry Oxygen Devices in Use Now: Nasal Cannula - 15L Appearance: sitting in chair, coughing, no respiratory distress Eyes: No Scleral Icterus, PERRLA Ears/Nose/Mouth/Throat: - - no thrush Neck: NL Appearance and Movements; NL JVP Respiratory: Symmetrical Chest Expansion and Respiratory Effort, - - diffuse rhonchi Cardiovascular: - - tachy, no murmurs Abdominal: NL Sounds; No Tenderness; No Distention, No Hepatosplenomegaly, - - peg site c/d/i Extremities: - - trace LE edema Skin: No Rash or Ulcers, No Nodules or Sclerosis, - Neurological: Alert and Oriented x 3 Result Diagrams: 06/23/16 06:10 06/23/16 06:10 Additional Lab and Data: Lab Results 06/13/16 06/13/16 06/13/16 Range/Units 12:40 12:40 12:40 WBC 11.4 H (3.5-10.8) 10^3/ul RBC 3.79 L (4.0-5.4) 10^6/ul Hgb 8.8 L (12.0-16.0) g/dl Hct 28 L (35-47) % MCV 73 L (80-97) fL MCH 23 L (27-31) pg MCHC 32 (31-36) g/dl RDW 16 H (10.5-15) % Plt Count 223 (150-450) 10^3/ul MPV 8 (7.4-10.4) um3 Neut % (Auto) 86.8 H (38-83) % Lymph % (Auto) 2.4 L (25-47) % [place] % (Auto) 8.0 (1-9) % Eos % (Auto) 2.6 (0-6) % Baso % (Auto) 0.2 (0-2) % Absolute Neuts (auto) 9.9 H (1.5-7.7) 10^3/ul Absolute Lymphs (auto) 0.3 L (1.0-4.8) 10^3/ul Absolute Monos (auto) 0.9 H (0-0.8) 10^3/ul Absolute Eos (auto) 0.3 (0-0.6) 10^3/ul Absolute Basos (auto) 0 (0-0.2) 10^3/ul Absolute Nucleated RBC 0.01 10^3/ul Nucleated RBC % 0 Sodium 127 L (133-145) mmol/L Potassium 5.0 (3.5-5.0) mmol/L Chloride 92 L (101-111) mmol/L Carbon Dioxide 31 (22-32) mmol/L Anion Gap 4 (2-11) mmol/L BUN 21 (6-24) mg/dL Creatinine 0.42 L (0.51-0.95) mg/dL Est GFR ( Amer) 194.7 (>60) Est GFR (Non-Af Amer) 151.4 (>60) BUN/Creatinine Ratio 50.0 H (8-20) Glucose 105 H (70-100) mg/dL Lactic Acid 1.1 (0.5-2.0) mmol/L Calcium 8.8 (8.6-10.3) mg/dL Total Bilirubin 0.60 (0.2-1.0) mg/dL AST 70 H (13-39) U/L ALT 29 (7-52) U/L Alkaline Phosphatase 261 H (34-104) U/L Troponin I 0.01 (<0.04) ng/mL C-Reactive Protein 145.93 H (< 5.00) mg/L B-Natriuretic Peptide ( - 100) pg/mL Total Protein 5.5 L (6.4-8.9) g/dL Albumin 2.6 L (3.2-5.2) g/dL Globulin 2.9 (2-4) g/dL Albumin/Globulin Ratio 0.9 L (1-3) 03/14/17 Range/Units 12:40 WBC (3.5-10.8) 10^3/ul RBC (4.0-5.4) 10^6/ul Hgb (12.0-16.0) g/dl Hct (35-47) % MCV (80-97) fL MCH (27-31) pg MCHC (31-36) g/dl RDW (10.5-15) % Plt Count (150-450) 10^3/ul MPV (7.4-10.4) um3 Neut % (Auto) (38-83) % Lymph % (Auto) (25-47) % [place] % (Auto) (1-9) % Eos % (Auto) (0-6) % Baso % (Auto) (0-2) % Absolute Neuts (auto) (1.5-7.7) 10^3/ul Absolute Lymphs (auto) (1.0-4.8) 10^3/ul Absolute Monos (auto) (0-0.8) 10^3/ul Absolute Eos (auto) (0-0.6) 10^3/ul Absolute Basos (auto) (0-0.2) 10^3/ul Absolute Nucleated RBC 10^3/ul Nucleated RBC % Sodium (133-145) mmol/L Potassium (3.5-5.0) mmol/L Chloride (101-111) mmol/L Carbon Dioxide (22-32) mmol/L Anion Gap (2-11) mmol/L BUN (6-24) mg/dL Creatinine (0.51-0.95) mg/dL Est GFR ( Amer) (>60) Est GFR (Non-Af Amer) (>60) BUN/Creatinine Ratio (8-20) Glucose (70-100) mg/dL Lactic Acid (0.5-2.0) mmol/L Calcium (8.6-10.3) mg/dL Total Bilirubin (0.2-1.0) mg/dL AST (13-39) U/L ALT (7-52) U/L Alkaline Phosphatase (34-104) U/L Troponin I (<0.04) ng/mL C-Reactive Protein (< 5.00) mg/L B-Natriuretic Peptide 68 ( - 100) pg/mL Total Protein (6.4-8.9) g/dL Albumin (3.2-5.2) g/dL Globulin (2-4) g/dL Albumin/Globulin Ratio (1-3) Microbiology and Other Data: Microbiology 06/15/16 09:00 Acid Fast Bacilli Smear - Final Respiratory - Sputum 06/14/16 22:00 Acid Fast Bacilli Smear - Final Respiratory - Sputum 06/14/16 16:50 Acid Fast Bacilli Smear - Final Respiratory - Sputum 06/14/16 16:20 Acid Fast Bacilli Smear - Final Respiratory - Sputum Assess/Plan/Problems-Billing Assessment: 65 yo F h/o SCC tongue s/p surgery/chemo/RT, found with necrotic masses in lung with LN biopsy positive for SCC complicated by hypoxic respiratory failure in setting of post obstructive PNA - Patient Problems (1) Threatening to others Comment: No additional threats since 06/21 noted to RN 06/21 that both he and patient have pistol permit and he could bring in a gun and teach everyone a lesson Admin environmental studies professor notified of 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 This author relayed to ICU on transfer. (2) Acute respiratory failure with hypoxia Comment: Worsening in setting of PNA and underlying malignancy No improvement with lasix. CXR without sig vascular congestion or worseing infiltartes. Suspect underlying malignancy driving process Unable to receive RT while on vapotherm because there is no way to run the vapotherm in the RT clinic. (3) C. difficile colitis Status: Resolved Comment: c. diff PCR negative, dirrhea improved (4) Tachycardia Comment: Lung exam worsened with normal saline no improvement in HR Pain, cough, discomfort, malignancy ongoing suspected to be driving tachycardia Treat above with increased codiene, morphine IV and PO (5) Pneumonia Comment: Cavitating lung lesions. WBC increasing, checking UA with inc WBC, unchanged CXR c/w cefepime, and vancomycin,change PO to flagyl IV EBUS 06/[address] biopsy -cytology shows malignant squamous cell ca. RT started 06/19 with goal of opening right main stem bronchus appreciate ID assistance Stop hydrocodone with standing APAP to follow fevers codeine for cough, oxy for pain, morphine for breakthrough (6) Squamous cell cancer of tongue Comment: S/P surgery/chemo/RT. Followed by Dr. Berry Video swallow study shows she tolerates thin liquids and pureed food. (7) Severe protein-calorie malnutrition Comment: Did not tolerate bolus feeding Doing OK without emesis on 30cc/hr continuous feeds Advance to 40cc now and increase 10cc/hr every shift to goal of 60cc/hr appreciate nutrition assistance (8) DVT prophylaxis Comment: Heparin sub q
[2016-06-24] MEDS: Cefepime(*) 1 GM in NS 0.9% 50 ML* 50 ML IVPB SCH ×2 (09:52→20:22)
[2016-06-24 13:57] LABS: Urine Bacteria Absent (Absent); Urine Bilirubin Negative (Negative); Urine Glucose Negative (Negative); Urine Nitrite Negative (Negative)
[2016-06-25] MEDS: Codeine TAB* 15 MG G TUBE PRN ×4 (01:18→20:20)
[2016-06-25] MEDS: Morphine INJ* 2 MG/ML 1 ML SYRINGE IV PRN ×2 (01:18→07:25)
[2016-06-25] MEDS: metroNIDAZOLE IV 500 MG/100ML* 500 MG/100 ML BAG IVPB SCH ×2 (01:32→09:24)
[2016-06-25] MEDS: Morphine ORAL CONCENTRATE* 5 MG/0.25 ML ORAL.SYRIN PEG TUBE PRN ×2 (03:15→10:12)
[2016-06-25] MEDS: GuaiFENesin DM* 5 ML UDC PEG TUBE PRN ×4 (03:51→22:40)
[2016-06-25 04:40] LABS: Hematocrit 26 % (35-47); Hemoglobin 7.8 g/dl (12.0-16.0); Mean Corpuscular HGB Conc 31 g/dl (31-36); Mean Corpuscular Hemoglobin 23 pg (27-31); Mean Platelet Volume 8 um3 (7.4-10.4); Red Blood Count 3.45 10^6/ul (4.0-5.4); Red Cell Distribution Width 17 % (10.5-15); White Blood Count 20.6 10^3/ul (3.5-10.8)
[2016-06-25 04:43] LABS: Add Diff/Slide Review? Slide Review Added; Comments Flag Yes; Mean Corpuscular Volume 74 fL (80-97)
[2016-06-25 04:54] LABS: Albumin 2.1 g/dL (3.2-5.2); BUN/Creatinine Ratio 51.5 (8-20); Calcium 8.9 mg/dL (8.6-10.3); Direct Bilirubin 0.2 mg/dL (0.03-0.18); EGFR African American 257.2 (>60); Globulin 2.5 g/dL (2-4); Indirect Bilirubin 0.3 mg/dL (0.3-1.0); Potassium 3.9 mmol/L (3.5-5.0); Total Bilirubin 0.5 mg/dL (0.2-1.0); Total Protein 4.6 g/dL (6.4-8.9)
[2016-06-25] MEDS: Heparin VIAL(*) 5000 UNITS/ML VIAL (FIVE THOUSAND) SUBCUT SCH (05:55)
[2016-06-25] MEDS: Vancomycin(*) 1,000 MG in NS 0.9% 250 ML* 250 ML IVPB SCH (08:00)
[2016-06-25] MEDS: Potassium Chloride LIQUID* 20 MEQ PACKET PEG TUBE SCH (08:27)
[2016-06-25] MEDS: Cefepime(*) 1 GM in NS 0.9% 50 ML* 50 ML IVPB SCH (08:27)
[2016-06-25] MEDS: Potassium Chloride LIQUID* 20 MEQ PACKET G TUBE SCH (08:27)
[2016-06-25] MEDS: Magic Mouth Was-BEN/MAAL/LIDO SWISH SPIT SCH ×4 (08:27→21:39)
[2016-06-25] MEDS: Labetalol TAB* 100 MG PEG TUBE SCH ×2 (08:27→20:20)
[2016-06-25] MEDS ORDERED: Morphine INJ* 4 MG/ML 1 ML SYRINGE ONE (12:20)
[2016-06-25] MEDS: Morphine INJ* 4 MG/ML 1 ML SYRINGE IV PRN ×5 (12:23→23:30)
--- NOTE | 2016-06-25 14:52 | PN ---
Subjective Date of Service: 06/25/16 Interval History: Seen and examined this AM Meeting with patient and this afternoon Pt would like to withdraw care with aim of cure and focus on comfort. Her cough and SOB are greatest concerns Jan is concerned that she is suffering. He agrees with her decision and would like her to remain comfortable We discussed at length what this means and the steps we will take including stopping all medication (including antibiotics) that are not providing comfort We will increase morphine dose now and continue to titrate until she is not SOB Both pt and understand and agree with this plan Pt is to remain on vapotherm while she is SOB. With addition of increased morphine may be able to discontinue in near future. Objective Active Medications: Acetaminophen (Tylenol Adult Liq*) 650 mg PEG TUBE Q6H PRN PRN Reason: PAIN/FEVER Al Hydrox/Mg Hydrox/Simethicone (Maalox Plus*) 30 ml PEG TUBE Q4H PRN PRN Reason: DYSPEPSIA Albuterol (Ventolin 2.5 Mg/3 Ml Neb.Annie*) 2.5 mg INH Q4H PRN PRN Reason: SOB/WHEEZING Codeine Sulfate (Codeine Tab*) 30 mg G TUBE Q4H PRN PRN Reason: COUGH Last Admin: 06/25/16 13:18 Dose: 30 mg Guaifenesin/Dextromethorphan (Robitussin Dm*) 10 ml PEG TUBE Q6H PRN PRN Reason: COUGH Last Admin: 06/25/16 09:24 Dose: 10 ml Labetalol HCl (Trandate Tab*) 300 mg PEG TUBE BID UMU Last Admin: 06/25/16 08:27 Dose: 300 mg Morphine Sulfate (Morphine Oral Concentrate*) 2.5 mg PEG TUBE Q2H PRN PRN Reason: PAIN Last Admin: 06/25/16 10:12 Dose: 2.5 mg Morphine Sulfate (Morphine Inj (Syringe)*) 4 mg IV Q2H PRN PRN Reason: SOB/WHEEZING Last Admin: 06/25/16 12:23 Dose: 4 mg Multi-Ingredient Mouthwash/Gargle (Magic Mouth Was-Esvin/Maal/Lido*) 5 ml SWISH SPIT QID [facility] Last Admin: 06/25/16 13:17 Dose: Not Given Ondansetron HCl (Zofran Odt Tab*) 4 mg SL Q6H PRN PRN Reason: NAUSEA/VOMITING Last Admin: 06/20/16 22:34 Dose: 4 mg Ondansetron HCl (Zofran Inj*) 4 mg IV Q6H PRN PRN Reason: NAUSEA/VOMITING Last Admin: 06/23/16 12:22 Dose: 4 mg Oxycodone HCl (Oxycodone Oral.Soln*) 5 mg .SEE ORDER Q4H PRN PRN Reason: PAIN Last Admin: 06/24/16 23:20 Dose: 5 mg Potassium Chloride (Klor-Con Liquid*) 60 meq PEG TUBE DAILY U[facility] Last Admin: 06/25/16 08:27 Dose: 60 meq Vital Signs 06/24/16 06/24/16 06/24/16 15:00 15:30 15:41 Temperature Pulse Rate 111 109 Respiratory 28 24 22 Rate Blood Pressure 132/68 (mmHg) O2 Sat by Pulse 97 96 Oximetry 06/24/16 06/24/16 06/24/16 16:00 16:29 16:30 Temperature Pulse Rate 112 112 Respiratory 28 24 25 Rate Blood Pressure 137/77 (mmHg) O2 Sat by Pulse 96 95 Oximetry 06/24/16 06/24/16 06/24/16 17:00 17:30 18:00 Temperature Pulse Rate 118 119 123 Respiratory 28 25 31 Rate Blood Pressure 165/137 147/79 (mmHg) O2 Sat by Pulse 93 96 95 Oximetry 06/24/16 06/24/16 06/24/16 18:30 18:54 19:00 Temperature Pulse Rate 125 127 129 Respiratory 28 30 32 Rate Blood Pressure 153/83 148/81 (mmHg) O2 Sat by Pulse 94 95 95 Oximetry 06/24/16 06/24/16 06/24/16 19:30 19:49 20:00 Temperature 99.0 F Pulse Rate 143 133 Respiratory 26 29 Rate Blood Pressure 138/69 (mmHg) O2 Sat by Pulse 92 95 Oximetry 06/24/16 06/24/16 06/24/16 20:30 20:35 21:00 Temperature Pulse Rate 137 108 Respiratory 36 37 28 Rate Blood Pressure 125/63 (mmHg) O2 Sat by Pulse 96 94 Oximetry 06/24/16 06/24/16 06/24/16 21:30 22:00 22:30 Temperature Pulse Rate 102 108 109 Respiratory 26 35 25 Rate Blood Pressure 118/62 (mmHg) O2 Sat by Pulse 95 92 95 Oximetry 06/24/16 06/24/16 06/24/16 23:00 23:15 23:20 Temperature Pulse Rate 111 Respiratory 29 31 35 Rate Blood Pressure 111/52 (mmHg) O2 Sat by Pulse 95 Oximetry 06/24/16 06/24/16 06/25/16 23:30 23:50 00:00 Temperature Pulse Rate 114 105 102 Respiratory 31 22 24 Rate Blood Pressure (mmHg) O2 Sat by Pulse 94 94 94 Oximetry 06/25/16 06/25/16 06/25/16 00:01 00:21 00:30 Temperature 98.5 F Pulse Rate 103 102 Respiratory 23 25 Rate Blood Pressure 107/56 (mmHg) O2 Sat by Pulse 94 95 Oximetry 06/25/16 06/25/16 06/25/16 01:00 01:18 01:30 Temperature Pulse Rate 108 Respiratory 24 30 24 Rate Blood Pressure 115/49 (mmHg) O2 Sat by Pulse 95 Oximetry 06/25/16 06/25/16 06/25/16 02:00 02:30 03:00 Temperature Pulse Rate 108 104 102 Respiratory 24 21 23 Rate Blood Pressure 105/90 119/58 (mmHg) O2 Sat by Pulse 96 97 97 Oximetry 06/25/16 06/25/16 06/25/16 03:30 04:00 04:03 Temperature 98.9 F Pulse Rate 110 113 Respiratory 29 31 Rate Blood Pressure 136/75 (mmHg) O2 Sat by Pulse 98 97 Oximetry 06/25/16 06/25/16 06/25/16 04:30 05:00 05:30 Temperature Pulse Rate 110 107 119 Respiratory 26 24 28 Rate Blood Pressure 127/64 (mmHg) O2 Sat by Pulse 96 96 94 Oximetry 06/25/16 06/25/16 06/25/16 06:00 06:30 07:00 Temperature Pulse Rate 117 119 117 Respiratory 26 28 24 Rate Blood Pressure 138/76 (mmHg) O2 Sat by Pulse 96 94 95 Oximetry 06/25/16 06/25/16 06/25/16 07:25 07:30 08:00 Temperature Pulse Rate 122 125 Respiratory 22 25 27 Rate Blood Pressure (mmHg) O2 Sat by Pulse 96 95 Oximetry 06/25/16 06/25/16 06/25/16 08:05 08:13 08:30 Temperature 99.0 F Pulse Rate 124 121 Respiratory 28 24 Rate Blood Pressure 135/70 (mmHg) O2 Sat by Pulse 96 94 Oximetry 06/25/16 06/25/16 06/25/16 09:00 09:30 10:00 Temperature Pulse Rate 111 103 101 Respiratory 33 35 34 Rate Blood Pressure 133/75 120/66 (mmHg) O2 Sat by Pulse 92 92 95 Oximetry 06/25/16 06/25/16 06/25/16 10:30 11:00 11:30 Temperature Pulse Rate 100 107 103 Respiratory 31 25 28 Rate Blood Pressure (mmHg) O2 Sat by Pulse 95 95 95 Oximetry 06/25/16 06/25/16 06/25/16 12:00 12:23 12:30 Temperature Pulse Rate 108 108 Respiratory 26 32 27 Rate Blood Pressure 119/65 (mmHg) O2 Sat by Pulse 98 97 Oximetry 06/25/16 06/25/16 06/25/16 13:00 13:18 13:30 Temperature Pulse Rate 104 110 Respiratory 24 32 26 Rate Blood Pressure 111/58 (mmHg) O2 Sat by Pulse 97 98 Oximetry 06/25/16 06/25/16 14:00 14:30 Temperature Pulse Rate 106 109 Respiratory 23 23 Rate Blood Pressure 108/57 (mmHg) O2 Sat by Pulse 97 99 Oximetry Oxygen Devices in Use Now: High Flow Nasal Cannula - 15L Appearance: +cough, SOB, inc WOB Eyes: No Scleral Icterus, PERRLA Ears/Nose/Mouth/Throat: - - dry MM Neck: NL Appearance and Movements; NL JVP, Trachea Midline Respiratory: - - rhonci most prominant on right in mid [place] Cardiovascular: - - tachy, regular, no murmurs Abdominal: NL Sounds; No Tenderness; No Distention, No Hepatosplenomegaly Extremities: No Clubbing, Cyanosis Skin: No Rash or Ulcers Neurological: Alert and Oriented x 3 Result Diagrams: 06/25/16 04:30 06/25/16 04:30 Additional Lab and Data: Lab Results 06/13/16 06/13/16 06/13/16 Range/Units 12:40 12:40 12:40 WBC 11.4 H (3.5-10.8) 10^3/ul RBC 3.79 L (4.0-5.4) 10^6/ul Hgb 8.8 L (12.0-16.0) g/dl Hct 28 L (35-47) % MCV 73 L (80-97) fL MCH 23 L (27-31) pg MCHC 32 (31-36) g/dl RDW 16 H (10.5-15) % Plt Count 223 (150-450) 10^3/ul MPV 8 (7.4-10.4) um3 Neut % (Auto) 86.8 H (38-83) % Lymph % (Auto) 2.4 L (25-47) % [place] % (Auto) 8.0 (1-9) % Eos % (Auto) 2.6 (0-6) % Baso % (Auto) 0.2 (0-2) % Absolute Neuts (auto) 9.9 H (1.5-7.7) 10^3/ul Absolute Lymphs (auto) 0.3 L (1.0-4.8) 10^3/ul Absolute Monos (auto) 0.9 H (0-0.8) 10^3/ul Absolute Eos (auto) 0.3 (0-0.6) 10^3/ul Absolute Basos (auto) 0 (0-0.2) 10^3/ul Absolute Nucleated RBC 0.01 10^3/ul Nucleated RBC % 0 Sodium 127 L (133-145) mmol/L Potassium 5.0 (3.5-5.0) mmol/L Chloride 92 L (101-111) mmol/L Carbon Dioxide 31 (22-32) mmol/L Anion Gap 4 (2-11) mmol/L BUN 21 (6-24) mg/dL Creatinine 0.42 L (0.51-0.95) mg/dL Est GFR ( Amer) 194.7 (>60) Est GFR (Non-Af Amer) 151.4 (>60) BUN/Creatinine Ratio 50.0 H (8-20) Glucose 105 H (70-100) mg/dL Lactic Acid 1.1 (0.5-2.0) mmol/L Calcium 8.8 (8.6-10.3) mg/dL Total Bilirubin 0.60 (0.2-1.0) mg/dL AST 70 H (13-39) U/L ALT 29 (7-52) U/L Alkaline Phosphatase 261 H (34-104) U/L Troponin I 0.01 (<0.04) ng/mL C-Reactive Protein 145.93 H (< 5.00) mg/L B-Natriuretic Peptide ( - 100) pg/mL Total Protein 5.5 L (6.4-8.9) g/dL Albumin 2.6 L (3.2-5.2) g/dL Globulin 2.9 (2-4) g/dL Albumin/Globulin Ratio 0.9 L (1-3) 06/13/16 Range/Units 12:40 WBC (3.5-10.8) 10^3/ul RBC (4.0-5.4) 10^6/ul Hgb (12.0-16.0) g/dl Hct (35-47) % MCV (80-97) fL MCH (27-31) pg MCHC (31-36) g/dl RDW (10.5-15) % Plt Count (150-450) 10^3/ul MPV (7.4-10.4) um3 Neut % (Auto) (38-83) % Lymph % (Auto) (25-47) % [place] % (Auto) (1-9) % Eos % (Auto) (0-6) % Baso % (Auto) (0-2) % Absolute Neuts (auto) (1.5-7.7) 10^3/ul Absolute Lymphs (auto) (1.0-4.8) 10^3/ul Absolute Monos (auto) (0-0.8) 10^3/ul Absolute Eos (auto) (0-0.6) 10^3/ul Absolute Basos (auto) (0-0.2) 10^3/ul Absolute Nucleated RBC 10^3/ul Nucleated RBC % Sodium (133-145) mmol/L Potassium (3.5-5.0) mmol/L Chloride (101-111) mmol/L Carbon Dioxide (22-32) mmol/L Anion Gap (2-11) mmol/L BUN (6-24) mg/dL Creatinine (0.51-0.95) mg/dL Est GFR ( Amer) (>60) Est GFR (Non-Af Amer) (>60) BUN/Creatinine Ratio (8-20) Glucose (70-100) mg/dL Lactic Acid (0.5-2.0) mmol/L Calcium (8.6-10.3) mg/dL Total Bilirubin (0.2-1.0) mg/dL AST (13-39) U/L ALT (7-52) U/L Alkaline Phosphatase (34-104) U/L Troponin I (<0.04) ng/mL C-Reactive Protein (< 5.00) mg/L B-Natriuretic Peptide 68 ( - 100) pg/mL Total Protein (6.4-8.9) g/dL Albumin (3.2-5.2) g/dL Globulin (2-4) g/dL Albumin/Globulin Ratio (1-3) Microbiology and Other Data: Microbiology 06/15/16 09:00 Acid Fast Bacilli Smear - Final Respiratory - Sputum 06/14/16 22:00 Acid Fast Bacilli Smear - Final Respiratory - Sputum 06/14/16 16:50 Acid Fast Bacilli Smear - Final Respiratory - Sputum 06/14/16 16:20 Acid Fast Bacilli Smear - Final Respiratory - Sputum Assess/Plan/Problems-Billing Assessment: 65 yo F h/o SCC tongue s/p surgery/chemo/RT, found with necrotic masses in lung with LN biopsy positive for SCC complicated by hypoxic respiratory failure in setting of post obstructive PNA - Patient Problems (1) Threatening to others Comment: No additional threats since 06/21 Happy with plan of care after discussion 06/25 noted to RN 06/21 that both he and patient have pistol permit and he could bring in a gun and teach everyone a lesson Admin pharmacy innovation assistant notified of 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 This author relayed to ICU on transfer. (2) Acute respiratory failure with hypoxia Comment: Worsening in setting of PNA and underlying malignancy No improvement with lasix. CXR without sig vascular congestion or worseing infiltartes. Suspect underlying malignancy driving process Unable to receive RT while on vapotherm because there is no way to run the vapotherm in the RT clinic. (3) C. difficile colitis Status: Resolved Comment: c. diff PCR negative, dirrhea improved (4) Tachycardia Comment: Lung exam worsened with normal saline no improvement in HR Pain, cough, discomfort, malignancy ongoing suspected to be driving tachycardia Treat above with increased codiene, morphine IV and PO (5) Pneumonia Comment: Cavitating lung lesions. WBC increasing, c/w cefepime, and vancomycin,change PO to flagyl IV EBUS 06/[address] biopsy -cytology shows malignant squamous cell ca. 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 Followed by Dr. Berry Video swallow study shows she tolerates thin liquids and pureed food. (7) Severe protein-calorie malnutrition Comment: Did not tolerate bolus feeding Doing OK without emesis on 30cc/hr continuous feeds Advance to 40cc now and increase 10cc/hr every shift to goal of 60cc/hr appreciate nutrition assistance (8) DVT prophylaxis Comment: d/c for comfort
[2016-06-25] MEDS: Acetaminophen ADULT LIQ* 650 MG/20.3 ML UDC PEG TUBE PRN (20:20)
[2016-06-26] MEDS: Codeine TAB* 15 MG G TUBE PRN ×4 (01:10→20:28)
[2016-06-26] MEDS: Morphine INJ* 4 MG/ML 1 ML SYRINGE IV PRN ×8 (02:23→22:51)
[2016-06-26] MEDS: Acetaminophen ADULT LIQ* 650 MG/20.3 ML UDC PEG TUBE PRN ×2 (04:37→17:47)
[2016-06-26] MEDS: GuaiFENesin DM* 5 ML UDC PEG TUBE PRN ×3 (04:37→23:35)
[2016-06-26] MEDS: oxyCODONE ORAL.SOLN* 5 MG/5 ML UDC PRN (08:21)
[2016-06-26] MEDS: Labetalol TAB* 100 MG PEG TUBE SCH ×2 (08:22→20:18)
[2016-06-26] MEDS: Magic Mouth Was-BEN/MAAL/LIDO SWISH SPIT SCH ×5 (08:30→20:05)
[2016-06-26] MEDS ORDERED: oxyCODONE ORAL.SOLN* 5 MG/5 ML UDC PRN (13:07)
--- NOTE | 2016-06-26 16:23 | PN ---
Subjective Date of Service: 06/26/16 Interval History: pt c/o SOB, requests more morphine Objective Active Medications: Acetaminophen (Tylenol Adult Liq*) 650 mg PEG TUBE Q6H PRN PRN Reason: PAIN/FEVER Last Admin: 06/26/16 04:37 Dose: 650 mg Al Hydrox/Mg Hydrox/Simethicone (Maalox Plus*) 30 ml PEG TUBE Q4H PRN PRN Reason: DYSPEPSIA Albuterol (Ventolin 2.5 Mg/3 Ml Neb.Annie*) 2.5 mg INH Q4H PRN PRN Reason: SOB/WHEEZING Last Admin: 06/25/16 22:03 Dose: 2.5 mg Codeine Sulfate (Codeine Tab*) 30 mg G TUBE Q4H PRN PRN Reason: COUGH Last Admin: 06/26/16 15:07 Dose: 30 mg Guaifenesin/Dextromethorphan (Robitussin Dm*) 10 ml PEG TUBE Q6H PRN PRN Reason: COUGH Last Admin: 06/26/16 10:22 Dose: 10 ml Labetalol HCl (Trandate Tab*) 300 mg PEG TUBE BID [facility] [place] Last Admin: 06/26/16 08:22 Dose: 300 mg Morphine Sulfate (Morphine Oral Concentrate*) 2.5 mg PEG TUBE Q2H PRN PRN Reason: PAIN Last Admin: 06/25/16 10:12 Dose: 2.5 mg Morphine Sulfate (Morphine Inj (Syringe)*) 4 mg IV Q2H PRN PRN Reason: SOB/WHEEZING Last Admin: 06/26/16 12:22 Dose: 4 mg Multi-Ingredient Mouthwash/Gargle (Magic Mouth Was-Esvin/Maal/Lido*) 5 ml SWISH SPIT QID [facility] [place] Last Admin: 06/26/16 15:07 Dose: 5 ml Ondansetron HCl (Zofran Odt Tab*) 4 mg SL Q6H PRN PRN Reason: NAUSEA/VOMITING Last Admin: 06/20/16 22:34 Dose: 4 mg Ondansetron HCl (Zofran Inj*) 4 mg IV Q6H PRN PRN Reason: NAUSEA/VOMITING Last Admin: 06/23/16 12:22 Dose: 4 mg Oxycodone HCl (Oxycodone Oral.Soln*) 10 mg .SEE ORDER Q4H PRN PRN Reason: PAIN Last Admin: 06/26/16 15:08 Dose: 10 mg Vital Signs 06/25/16 06/25/16 06/25/16 16:30 17:00 17:30 Temperature Pulse Rate 121 125 123 Respiratory 25 29 25 Rate Blood Pressure 118/70 (mmHg) O2 Sat by Pulse 98 97 96 Oximetry 06/25/16 06/25/16 06/25/16 17:54 18:00 18:30 Temperature Pulse Rate 125 121 Respiratory 28 27 24 Rate Blood Pressure 129/64 (mmHg) O2 Sat by Pulse 97 97 Oximetry 06/25/16 06/25/16 06/25/16 19:00 19:30 20:00 Temperature 101 F Pulse Rate 122 125 138 Respiratory 25 24 25 Rate Blood Pressure 115/62 142/86 (mmHg) O2 Sat by Pulse 97 97 97 Oximetry 06/25/16 06/25/16 06/25/16 20:30 21:00 21:02 Temperature Pulse Rate 136 105 105 Respiratory 25 30 26 Rate Blood Pressure 70/56 99/43 (mmHg) O2 Sat by Pulse 97 97 98 Oximetry 06/25/16 06/25/16 06/25/16 21:30 22:00 22:03 Temperature Pulse Rate 98 96 97 Respiratory 24 23 25 Rate Blood Pressure 99/50 (mmHg) O2 Sat by Pulse 98 99 99 Oximetry 06/25/16 06/25/16 06/25/16 22:20 22:30 23:00 Temperature 98.3 F Pulse Rate 95 93 Respiratory 25 21 Rate Blood Pressure 93/53 (mmHg) O2 Sat by Pulse 99 99 Oximetry 06/25/16 06/25/16 06/25/16 23:08 23:30 23:34 Temperature Pulse Rate 92 101 100 Respiratory 20 25 22 Rate Blood Pressure 100/62 (mmHg) O2 Sat by Pulse 99 98 98 Oximetry 06/26/16 06/26/16 06/26/16 00:00 00:01 00:25 Temperature 96.7 F Pulse Rate 91 91 Respiratory 19 20 Rate Blood Pressure 92/51 (mmHg) O2 Sat by Pulse 98 98 Oximetry 06/26/16 06/26/16 06/26/16 00:30 01:00 01:01 Temperature Pulse Rate 90 92 92 Respiratory 19 19 19 Rate Blood Pressure 84/58 104/63 (mmHg) O2 Sat by Pulse 98 99 99 Oximetry 06/26/16 06/26/16 06/26/16 01:30 02:00 02:23 Temperature Pulse Rate 108 111 Respiratory 27 24 22 Rate Blood Pressure 126/71 (mmHg) O2 Sat by Pulse 96 93 Oximetry 06/26/16 06/26/16 06/26/16 02:30 03:00 03:30 Temperature Pulse Rate 117 120 137 Respiratory 25 20 26 Rate Blood Pressure 127/71 (mmHg) O2 Sat by Pulse 97 95 96 Oximetry 06/26/16 06/26/16 06/26/16 04:00 04:15 04:30 Temperature 101.3 F Pulse Rate 138 153 Respiratory 26 31 Rate Blood Pressure 139/75 (mmHg) O2 Sat by Pulse 98 97 Oximetry 06/26/16 06/26/16 06/26/16 05:00 05:30 05:46 Temperature Pulse Rate 145 116 Respiratory 30 27 24 Rate Blood Pressure 118/69 (mmHg) O2 Sat by Pulse 96 98 Oximetry 06/26/16 06/26/16 06/26/16 06:00 06:30 06:36 Temperature 99.5 F Pulse Rate 53 117 Respiratory 25 25 Rate Blood Pressure 117/70 (mmHg) O2 Sat by Pulse 98 97 Oximetry 06/26/16 06/26/16 06/26/16 07:00 07:30 07:32 Temperature 97.8 F Pulse Rate 111 116 Respiratory 20 20 Rate Blood Pressure 108/61 (mmHg) O2 Sat by Pulse 97 97 Oximetry 06/26/16 06/26/16 06/26/16 08:00 08:21 08:22 Temperature Pulse Rate 112 Respiratory 24 25 25 Rate Blood Pressure 104/65 (mmHg) O2 Sat by Pulse 97 Oximetry 06/26/16 06/26/16 06/26/16 08:30 09:00 09:12 Temperature Pulse Rate 116 104 116 Respiratory 20 20 25 Rate Blood Pressure 101/58 (mmHg) O2 Sat by Pulse 96 97 97 Oximetry 06/26/16 06/26/16 06/26/16 09:30 10:00 10:22 Temperature Pulse Rate 96 105 Respiratory 18 20 21 Rate Blood Pressure 104/61 (mmHg) O2 Sat by Pulse 98 96 Oximetry 06/26/16 06/26/16 06/26/16 10:30 11:00 12:22 Temperature Pulse Rate 105 Respiratory 21 21 18 Rate Blood Pressure (mmHg) O2 Sat by Pulse 96 Oximetry 06/26/16 15:08 Temperature Pulse Rate Respiratory 28 Rate Blood Pressure (mmHg) O2 Sat by Pulse Oximetry Oxygen Devices in Use Now: High Flow Nasal Cannula - 15L Appearance: 65 yo F in AAOx3, increased WOB noted Eyes: No Scleral Icterus, PERRLA Ears/Nose/Mouth/Throat: NL Teeth, Lips, Gums, Mucous Membranes Moist Neck: NL Appearance and Movements; NL JVP, - - neck -skin hardened from prior radiation tx and tender to palpation on left Respiratory: Symmetrical Chest Expansion and Respiratory Effort, - - rhonchi b/ l entire lungs Cardiovascular: NL Sounds; No Murmurs; No JVD, RRR Abdominal: NL Sounds; No Tenderness; No Distention, - - PEG in place Extremities: No Clubbing, Cyanosis, - - diffuse all extr edema , most prominent in r arm Skin: No Rash or Ulcers Neurological: Alert and Oriented x 3, NL Muscle Strength and Tone Result Diagrams: 06/25/16 04:30 06/25/16 04:30 Additional Lab and Data: Lab Results 06/13/16 06/13/16 06/13/16 Range/Units 12:40 12:40 12:40 WBC 11.4 H (3.5-10.8) 10^3/ul RBC 3.79 L (4.0-5.4) 10^6/ul Hgb 8.8 L (12.0-16.0) g/dl Hct 28 L (35-47) % MCV 73 L (80-97) fL MCH 23 L (27-31) pg MCHC 32 (31-36) g/dl RDW 16 H (10.5-15) % Plt Count 223 (150-450) 10^3/ul MPV 8 (7.4-10.4) um3 Neut % (Auto) 86.8 H (38-83) % Lymph % (Auto) 2.4 L (25-47) % [place] % (Auto) 8.0 (1-9) % Eos % (Auto) 2.6 (0-6) % Baso % (Auto) 0.2 (0-2) % Absolute Neuts (auto) 9.9 H (1.5-7.7) 10^3/ul Absolute Lymphs (auto) 0.3 L (1.0-4.8) 10^3/ul Absolute Monos (auto) 0.9 H (0-0.8) 10^3/ul Absolute Eos (auto) 0.3 (0-0.6) 10^3/ul Absolute Basos (auto) 0 (0-0.2) 10^3/ul Absolute Nucleated RBC 0.01 10^3/ul Nucleated RBC % 0 Sodium 127 L (133-145) mmol/L Potassium 5.0 (3.5-5.0) mmol/L Chloride 92 L (101-111) mmol/L Carbon Dioxide 31 (22-32) mmol/L Anion Gap 4 (2-11) mmol/L BUN 21 (6-24) mg/dL Creatinine 0.42 L (0.51-0.95) mg/dL Est GFR ( Amer) 194.7 (>60) Est GFR (Non-Af Amer) 151.4 (>60) BUN/Creatinine Ratio 50.0 H (8-20) Glucose 105 H (70-100) mg/dL Lactic Acid 1.1 (0.5-2.0) mmol/L Calcium 8.8 (8.6-10.3) mg/dL Total Bilirubin 0.60 (0.2-1.0) mg/dL AST 70 H (13-39) U/L ALT 29 (7-52) U/L Alkaline Phosphatase 261 H (34-104) U/L Troponin I 0.01 (<0.04) ng/mL C-Reactive Protein 145.93 H (< 5.00) mg/L B-Natriuretic Peptide ( - 100) pg/mL Total Protein 5.5 L (6.4-8.9) g/dL Albumin 2.6 L (3.2-5.2) g/dL Globulin 2.9 (2-4) g/dL Albumin/Globulin Ratio 0.9 L (1-3) 06/13/16 Range/Units 12:40 WBC (3.5-10.8) 10^3/ul RBC (4.0-5.4) 10^6/ul Hgb (12.0-16.0) g/dl Hct (35-47) % MCV (80-97) fL MCH (27-31) pg MCHC (31-36) g/dl RDW (10.5-15) % Plt Count (150-450) 10^3/ul MPV (7.4-10.4) um3 Neut % (Auto) (38-83) % Lymph % (Auto) (25-47) % [place] % (Auto) (1-9) % Eos % (Auto) (0-6) % Baso % (Auto) (0-2) % Absolute Neuts (auto) (1.5-7.7) 10^3/ul Absolute Lymphs (auto) (1.0-4.8) 10^3/ul Absolute Monos (auto) (0-0.8) 10^3/ul Absolute Eos (auto) (0-0.6) 10^3/ul Absolute Basos (auto) (0-0.2) 10^3/ul Absolute Nucleated RBC 10^3/ul Nucleated RBC % Sodium (133-145) mmol/L Potassium (3.5-5.0) mmol/L Chloride (101-111) mmol/L Carbon Dioxide (22-32) mmol/L Anion Gap (2-11) mmol/L BUN (6-24) mg/dL Creatinine (0.51-0.95) mg/dL Est GFR ( Amer) (>60) Est GFR (Non-Af Amer) (>60) BUN/Creatinine Ratio (8-20) Glucose (70-100) mg/dL Lactic Acid (0.5-2.0) mmol/L Calcium (8.6-10.3) mg/dL Total Bilirubin (0.2-1.0) mg/dL AST (13-39) U/L ALT (7-52) U/L Alkaline Phosphatase (34-104) U/L Troponin I (<0.04) ng/mL C-Reactive Protein (< 5.00) mg/L B-Natriuretic Peptide 68 ( - 100) pg/mL Total Protein (6.4-8.9) g/dL Albumin (3.2-5.2) g/dL Globulin (2-4) g/dL Albumin/Globulin Ratio (1-3) Microbiology and Other Data: Microbiology 06/15/16 09:00 Acid Fast Bacilli Smear - Final Respiratory - Sputum 06/14/16 22:00 Acid Fast Bacilli Smear - Final Respiratory - Sputum 06/14/16 16:50 Acid Fast Bacilli Smear - Final Respiratory - Sputum 06/14/16 16:20 Acid Fast Bacilli Smear - Final Respiratory - Sputum Assess/Plan/Problems-Billing Assessment: 65 yo F h/o SCC tongue s/p surgery/chemo/RT, found with necrotic masses in lung with LN biopsy positive for SCC complicated by hypoxic respiratory failure in setting of post obstructive PNA - Patient Problems (1) Acute respiratory failure with hypoxia Comment: Worsening in setting of PNA and underlying malignancy US guided mediastinal LN bx from 06/16/16 positive for met. Unable to receive RT while on high flow 02. Transfer to med floor. Cont comfort care orders started on 06/25/16 (2) Tongue cancer Comment: comfort care (3) C. difficile colitis Comment: c. diff PCR negative, diarrhea improved CT abd positive for colon pneumatosis most likely benign (on 07/14/16) (4) Severe protein-calorie malnutrition Comment: Did not tolerate bolus feeding Doing OK without emesis on 30cc/hr continuous feeds Goal is comfort care (5) Threatening to others Comment: No additional threats since 06/21 noted to RN 06/21 that both he and patient have pistol permit and he could bring in a gun and teach everyone a lesson (6) Squamous cell cancer of tongue Comment: S/P surgery/chemo/RT. Followed by Dr. Berry Video swallow study shows she tolerates thin liquids and pureed food. (7) DVT prophylaxis Comment: d/c for comfort Status and Disposition: pt is on comfort care. appreciate Palliative care f/u
[2016-06-26 17:30] VITALS: BP 140/77
[2016-06-26] MEDS: Morphine ORAL CONCENTRATE* 5 MG/0.25 ML ORAL.SYRIN PEG TUBE PRN (23:32)
[2016-06-27] MEDS: Codeine TAB* 15 MG G TUBE PRN ×2 (00:18→04:18)
[2016-06-27] MEDS: Morphine INJ* 4 MG/ML 1 ML SYRINGE IV PRN ×9 (00:29→09:45)
[2016-06-27] MEDS: Acetaminophen ADULT LIQ* 650 MG/20.3 ML UDC PEG TUBE PRN (02:43)
[2016-06-27] MEDS: GuaiFENesin DM* 5 ML UDC PEG TUBE PRN (05:06)
[2016-06-27] MEDS: Morphine ORAL CONCENTRATE* 5 MG/0.25 ML ORAL.SYRIN PEG TUBE PRN (07:35)
[2016-06-27] MEDS: Labetalol TAB* 100 MG PEG TUBE SCH (08:03)
[2016-06-27] MEDS: Magic Mouth Was-BEN/MAAL/LIDO SWISH SPIT SCH (08:04)
--- NOTE | 2016-06-27 10:43 | PN ---
Progress Note - Progress Note Note: Arrived to pronounce pt's . Pt was found unresponsive to all stimuli. There were no spontaneous respirations , or HR on evaluations. Pupils fixed and dilated. Pt's by the bedside. time of 10:20 AM.
--- NOTE | 2016-06-27 17:42 | DS ---
DISCHARGE/ SUMMARY: DATE OF ADMISSION: 06/13/16 DATE OF : 06/27/16 TIME OF : 10:20 am. 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 SECONDARY DIAGNOSIS: The patient was diagnosed of pneumonia during her hospital stay and acute and chronic respiratory failure. PROCEDURE DURING THE HOSPITAL STAY: Included transbronchial lung lymph node biopsy performed by Dr. 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 HOSPITALIZATION COURSE: Deb Lozano was a 65-year-old female with history of oral cavity squamous cell cancer, status post resection, chemo and radiation treatment, who was noted to have postobstructive pneumonia due to cavitary lesions in her lungs. She was admitted on 06/13/16 for acute respiratory failure to the intensive care unit. She was treated with IV antibiotics and supplemental oxygenation. She continues to have problems with swallowing and malnutrition. Despite that, she was receiving nutrition through her already existing PEG tube. Her respiratory failure continued to progress despite concurrent treatment. On 06/25/16, the patient and patient's decided to place the patient on comfort care. The patient was placed on morphine as needed. Hospice was also following the patient throughout her hospital stay. On 06/27/16, at 10:20 a.m., she was pronounced . Autopsy was not requested. The patient's was present by the bedside. Please note this is a short summary of patient's hospital stay. Please refer to further medical records for details. TIME SPENT: Approximately 40 minutes were spent on the patient's discharge. CC: Sarthak Ceron MD; Dr. Bran; Dr. Gomez; Dr. Berry* [id number]/[facility] #: [id number] [facility]
== END 2016-06-27 10:20 | disposition expired | DRG 823 ==
LOC: ED 12:19 → MED 14:40 → ICU 06-21 15:59 → MED 06-26 17:12
PROVIDERS: ADMIT Hospitalist; ATTEND Internal Medicine
PROC: 07B74ZX Excision of Thorax Lymphatic, Percutaneous Endoscopic Approach, Diagnostic (ICD-10-PCS; principal; 2016-06-19)
PROC: DW022ZZ Beam Radiation of Chest using Photons >10 MeV (ICD-10-PCS; 2016-06-19)
DX: C77.1 Secondary and unspecified malignant neoplasm of intrathoracic lymph nodes (principal); J18.9 Pneumonia, unspecified organism; J96.21 Acute and chronic respiratory failure with hypoxia; E43 Unspecified severe protein-calorie malnutrition; E87.0 Hyperosmolality and hypernatremia; C78.01 Secondary malignant neoplasm of right lung; C78.02 Secondary malignant neoplasm of left lung; R13.10 Dysphagia, unspecified; C02.9 Malignant neoplasm of tongue, unspecified; A04.7 Enterocolitis due to Clostridium difficile; Z88.0 Allergy status to penicillin; Z88.8 Allergy status to other drugs, medicaments and biological substances; I10 Essential (primary) hypertension; M19.90 Unspecified osteoarthritis, unspecified site; H26.9 Unspecified cataract; Z86.73 Personal history of transient ischemic attack (TIA), and cerebral infarction without residual deficits; Z82.3 Family history of stroke; Z82.5 Family history of asthma and other chronic lower respiratory diseases; F17.210 Nicotine dependence, cigarettes, uncomplicated; Z93.1 Gastrostomy status; M25.511 Pain in right shoulder; R00.0 Tachycardia, unspecified; Z51.5 Encounter for palliative care; Z66 Do not resuscitate; Z68.27 Body mass index [BMI] 27.0-27.9, adult
CPT/HCPCS: 36415; 70450; 71010; 74177; 77014; 77280; 77307; 77334; 77336; 77387; 77412; 80048; 80053; 80076; 80202; 81003; 81015; 82272; 82565; 83605; 83880; 84484; 84520; 85025; 85027; 86140; 86480; 86850; 86900; 86901; 87040; 87086; 87116; 87206; 87493; 88172; 88173; 88305; 93005; 94640; 94760; A9270-GY; J0330; J0692; J0780; J1100; J1642; J1644; J1940; J2250; J2270; J2405; J2704; J2997; J3010; J3370; J3480; Q9967